=== PATIENT | female | born 1940 | race Caucasian/White ===

== ENCOUNTER 2016-08-11 20:56 | Emergency (ER) | payer OTHER ==
[~2016-08-11] VITALS: Ht 149.9 cm; Wt 60.5 kg
[~2016-08-11 20:56] MED LIST: AMLO-114 PO; LOSA100T2 PO; METO1TAB69 PO; OMEG10002 PO; PRLSR20 PO
[2016-08-11 20:58] VITALS: Ht 149.9 cm; Wt 60.5 kg
[2016-08-11] MEDS ORDERED: SODIUM CHLORIDE 0.9% 1000ML 1,000 ML IV STA (21:09)
[2016-08-11] MEDS ORDERED: CEFTRIAXONE SOD INJ 1 GM ADDVIAL IV STA (21:09)
[2016-08-11 21:10] VITALS: O2SAT 98
[2016-08-11 21:53] LABS: URINE APPEARANCE CLEAR (CLEAR); URINE COLOR DK YELLOW; URINE EPITHELIAL CELL AUTO >30 /lpf (0-5); URINE NITRITE NEG (NEG); URINE PH 5.5 (4.5-7.5); URINE SPECIFIC GRAVITY 1.024 (1.000-1.030); UROBILINOGEN NEG (NEG); ZZUR CULT IF INDIC CLEAN CATCH YES
[2016-08-11 21:56] LABS: MANUAL MICROSCOPIC REQUIRED? NO; REVIEW REQ? NO
[2016-08-11 21:57] LABS: URINE BILIRUBIN NEG (NEG)
[2016-08-11 22:30] LABS: PARTIAL THROMBOPLASTIN RATIO 1.1; PROTHROMBIN TIME (PATIENT) 11.1 SECONDS (9.0-12.0)
[2016-08-11 22:41] LABS: ALT/SGPT 35 U/L (12-78); BLOOD UREA NITROGEN 19 mg/dl (7-18); BUN/CREATININE RATIO 20.3 (10-20); CALCIUM 9.1 mg/dl (8.5-10.1); CARBON DIOXIDE 25 mmol/L (21-32); CHLORIDE 97 mmol/L (98-107); CREATININE 0.94 mg/dl (0.60-1.20); GLUCOSE 98 mg/dl (70-99); POTASSIUM 3.2 mmol/L (3.5-5.1); SODIUM 132 mmol/L (136-145)
[2016-08-11 22:47] LABS: ALKALINE PHOSPHATASE 89 U/L (45-117); AST/SGOT 55 U/L (15-37)
[2016-08-11] MEDS ORDERED: ACETAMINOPHEN 325 MG TAB PO STA (22:57)
[2016-08-11 23:22] LABS: HEMATOCRIT 37.1 % (37-47); MEAN CORPUSCULAR HEMOGLOBIN 31.3 pg (25-34); MEAN CORPUSCULAR HGB CONC 34.8 g/dl (32-36); PLATELET COUNT 159 K/uL (130-400); RED BLOOD COUNT 4.12 M/uL (4.2-5.4); WHITE BLOOD COUNT 6.72 K/uL (4.8-10.8)
[2016-08-11 23:24] LABS: AGGLUTINATED RBC 2+
[2016-08-11 23:25] LABS: BASO % 0.9 %; BASO ABS # 0.06 K/uL (0-0.2); COMPLETE YES; EOS % 0.1 %; IG% 0.1 %; LYMPH % 9.4 %; LYMPH ABS # 0.63 K/uL (1.2-3.4); MONO % 10.7 %; NEUT % 78.8 %
[2016-08-11] MEDS ORDERED: LEVO-366 PO (23:52)
[2016-08-11] MEDS ORDERED: LEVOFLOXACIN 250 MG TAB PO STA (23:53)
--- NOTE | 2016-08-11 23:53 | EMERGENCY ROOM VISIT NOTE ---
History Report prepared by Swati: Torrie Armijo Under the Supervision of: Dr. Charles Delong D.O. First contact with patient: 21:06 Chief Complaint: WEAKNESS Stated Complaint: WEAKNESS, NO APPETITIE, FELL, BODY ACHES History of Present Illness The patient is a 76 year old female who presents to the Emergency Room with complaints of persistent weakness over the past month. She currently rates her discomfort as an 8/10 in severity. The patient states that 1 week ago she went to her PCP's office for left shoulder pain that radiates into her chest and down to her buttocks. She states that after the pain had started she had a fall down 1 step in the basement that threw her across the room into a chair. The patient's daughter reports that the patient has a history of a pervious back surgery and notes that the patient has been complaining of increased back pain since then. She states that the patient has had a decrease in appetite, noting that the patient has not eaten in three days. The patient reports a normal fluid intake. The patient's daughter states that the patient had an unwitnessed fall yesterday and the patient states that she could not get herself up after the fall. The patient states that she had to call another daughter to come help her up. She is unsure of any loss of consciousness. The patient additionally notes abdominal pain. The patient denies any cough, shortness of breath, or urinary symptoms. Source of History: patient, family (daughter) Onset: past month Position: other (global) Symptom Intensity: 8/10 Quality: other (weakness) Timing: other (persistent) Associated Symptoms: + chest pain, + abdominal pain, No cough, No SOB, No urinary symptoms Note: Associated Symptoms: decrease in appetite, unwitnessed falls, left shoulder pain Review of Systems See HPI for pertinent positives & negatives. A total of 10 systems reviewed and were otherwise negative. Past Medical & Surgical Medical Problems: (1) Arthritis (2) GERD (gastroesophageal reflux disease) (3) Hypertension Surgical Problems: (1) H/O: hysterectomy (2) History of bladder suspension procedure (3) Hx of tonsillectomy (4) Previous back surgery (5) S/P bilateral breast reduction (6) S/P hemorrhoidectomy Family History Heart disease Hypertension Social History Smoking Status: Never Smoker Smokeless Tobacco Use: No Alcohol Use: none Marital Status: Housing Status: lives alone Occupation Status: retired Current/Historical Medications Scheduled Amlodipine (Norvasc), 10 MG PO DAILY Losartan Potassium & Hydrochlo (Hyzaar), 1 TAB PO DAILY Metoprolol Succ (Toprol Xl) (Toprol-Xl ), 100 MG PO DAILY Allergies Coded Allergies: Cephalexin (Verified Allergy, Unknown, HIVES, 08/11/16) Physical Exam Vital Signs Date Time Temp Pulse Resp B/P (MAP) Pulse Ox O2 Delivery O2 Flow Rate FiO2 08/11/16 22:43 39.3 96 16 127/65 94 Room Air 08/11/16 21:19 98 08/11/16 21:10 98 Room Air 08/11/16 20:58 38.8 108 18 138/69 96 Room Air Physical Exam CONSTITUTIONAL/VITAL SIGNS: Reviewed / noted above. GENERAL: Non-toxic in appearance. INTEGUMENTARY: Warm, dry, and [place]. HEAD: Normocephalic. EYES: without scleral icterus or trauma. ENT/OROPHARYNX: clear and moist. LYMPHADENOPATHY/NECK: Is supple without lymphadenopathy or meningismus. RESPIRATORY: Lungs clear and equal. CARDIOVASCULAR: Regular rate and rhythm. GI/ABDOMEN: Soft and nontender. No organomegaly or pulsatile mass. No rebound or guarding. Normal bowel sounds. EXTREMITIES: Warm and well perfused. BACK: No CVA tenderness. NEUROLOGICAL: Intact without focal deficits. PSYCHIATRIC: normal affect. MUSCULOSKELETAL: Normally developed with good muscle tone. Medical Decision & Procedures ER Provider Diagnostic Interpretation: 1 view chest x-ray per my interpretation, pending radiology review: no acute disease, no pneumonia, no pneumothorax. Lumbar spine x-ray per my interpretation, pending radiology review: post- surgical hardware appears to be intact, no acute abnormalities appreciated. Laboratory Results 08/11/16 22:08 Red Blood Count 4.12, Mean Corpuscular Volume 90.0, Mean Corpuscular Hemoglobin 31.3, Mean Corpuscular Hemoglobin Concent 34.8, Neutrophils (%) (Auto) 78.8, Lymphocytes (%) (Auto) 9.4, Monocytes (%) (Auto) 10.7, Eosinophils (%) (Auto) 0.1, Basophils (%) (Auto) 0.9, Neutrophils # (Auto) 5.29, Lymphocytes # (Auto) 0.63, Monocytes # (Auto) 0.72, Eosinophils # (Auto) 0.01, Basophils # (Auto) 0.06 08/11/16 22:08 Test 08/11/16 21:35 08/11/16 22:08 Urine Color DK YELLOW Urine Appearance CLEAR (CLEAR) Urine pH 5.5 (4.5-7.5) Urine Specific [place] 1.024 (1.000-1.030) Urine Protein 1+ (NEG) Urine Glucose (UA) NEG (NEG) Urine Ketones 1+ (NEG) Urine Occult Blood 1+ (NEG) Urine Nitrite NEG (NEG) Urine Bilirubin NEG (NEG) Urine Urobilinogen NEG (NEG) Urine Leukocyte Esterase MODERATE (NEG) Urine WBC (Auto) 10-30 /hpf (0-5) Urine RBC (Auto) 10-30 /hpf (0-4) Urine Hyaline Casts (Auto) 1-5 /lpf (0-5) Urine Epithelial Cells (Auto) >30 /lpf (0-5) Urine Bacteria (Auto) NEG (NEG) White Blood Count 6.72 K/uL (4.8-10.8) Red Blood Count 4.12 M/uL (4.2-5.4) Hemoglobin 12.9 g/dL (12.0-16.0) Hematocrit 37.1 % (37-47) Mean Corpuscular Volume 90.0 fL (80-100) Mean Corpuscular Hemoglobin 31.3 pg (25-34) Mean Corpuscular Hemoglobin Concent 34.8 g/dl (32-36) Platelet Count 159 K/uL (130-400) Neutrophils (%) (Auto) 78.8 % Lymphocytes (%) (Auto) 9.4 % Monocytes (%) (Auto) 10.7 % Eosinophils (%) (Auto) 0.1 % Basophils (%) (Auto) 0.9 % Neutrophils # (Auto) 5.29 K/uL (1.4-6.5) Lymphocytes # (Auto) 0.63 K/uL (1.2-3.4) Monocytes # (Auto) 0.72 K/uL (0.11-0.59) Eosinophils # (Auto) 0.01 K/uL (0-0.5) Basophils # (Auto) 0.06 K/uL (0-0.2) Immature Granulocyte % (Auto) 0.1 % Immature Granulocyte # (Auto) 0.01 K/uL (0.00-0.02) RBC Agglutinates 2+ Prothrombin Time 11.1 SECONDS (9.0-12.0) Prothromb Time International Ratio 1.0 (0.9-1.1) Activated Partial Thromboplast Time 27.4 SECONDS (21.0-31.0) Partial Thromboplastin Ratio 1.1 Anion Gap 10.0 mmol/L (3-11) Est Creatinine Clear Calc Drug Dose 39.7 ml/min Estimated GFR () 67.8 Estimated GFR (Non- 58.5 BUN/Creatinine Ratio 20.3 (10-20) Lactic Acid Level 1.1 mmol/L (0.4-2.0) Calcium Level 9.1 mg/dl (8.5-10.1) Total Bilirubin 0.9 mg/dl (0.2-1) Direct Bilirubin 0.2 mg/dl (0-0.2) Aspartate Amino Transf (AST/SGOT) 55 U/L (15-37) Alanine Aminotransferase (ALT/SGPT) 35 U/L (12-78) Alkaline Phosphatase 89 U/L (45-117) Total Creatine Kinase 91 U/L (26-192) Creatine Kinase MB < 0.5 ng/ml (0.5-3.6) Creatine Kinase MB Ratio (0-3.0) Troponin I < 0.015 ng/ml (0-0.045) Total Protein 7.1 gm/dl (6.4-8.2) Albumin 3.3 gm/dl (3.4-5.0) Lipase 75 U/L (73-393) Laboratory results as stated above per my review. Medications Administered Medications (Trade) Dose Ordered Sig/Joselin Route Start Time Stop Time Status Last Admin Dose Admin Sodium Chloride 1,000 ml @ 999 mls/hr Q1H1M STAT IV 08/11/16 21:09 08/11/16 22:09 DC 08/11/16 21:44 999 MLS/HR Ceftriaxone Sodium (Rocephin Inj) 1 gm NOW STAT IV 08/11/16 21:09 08/11/16 21:19 DC 08/11/16 21:56 1 GM Acetaminophen (Tylenol Tab) 650 mg NOW STAT PO 7/5/17 22:57 08/11/16 22:58 DC 08/11/16 23:06 650 MG ECG Indication: weakness Rate (beats per minute): 103 Rhythm: sinus tachycardia Findings: no ectopy, other (no acute injury) ED Course 2118: Previous medical records were reviewed. The patient was evaluated in room B12B. A complete history and physical examination was performed. 2108: Ordered Rocephin Inj 1 gm IV, Sodium Chloride 1000 ml @ 999 mls/hr IV. 2256: Per nursing staff, the patient is still experiencing a fever. Ordered Tylenol Tab 650 mg PO. 2354: I reevaluated the patient and she is resting comfortably. I discussed the exam findings with her and her family and I discussed the treatment plan. They verbalized complete understanding and agreement. The patient is ready for discharge. Medical Decision Differentials include: Acute coronary syndrome, myocardial infarction, CVA, TIA , anemia, infection, pneumonia, UTI, pyelonephritis, poor nutrition, dehydration , electrolyte disturbance, and hypoglycemia. Medication Reconciliation: I attest that I have personally reviewed the patient' s current medication list. Blood pressure Screening: Patient was found to have normal blood pressure on screening and does not require follow-up. This is a 76-year-old female who presents to the ED with a chief complaint of generalized weakness. The patient has had a decreased appetite for the past several days and has not been eating solids well but has been drinking adequate fluids. She reportedly fell yesterday because she became weak. The daughter also stated that the patient fell about 3 weeks ago. The patient has a fever here 38.8. She denies any subjective sensation of fevers. She denies any upper respiratory symptoms or cough. Denies urinary symptoms or abdominal pain. Her physical exam was relatively unremarkable. Twelve-lead EKG shows a sinus tachycardia rate of 103. CBC is normal, complete metabolic panel was unremarkable. Troponin is negative. Lipase is negative. Chest x-ray did not show any acute disease, per my interpretation. X-rays of the lumbar spine reveals postoperative changes and hardware without any other acute abnormality related to her fall. The patient was told the results of the test. She was treated with IV fluids, by mouth Tylenol and IV Rocephin. She'll be discharged on Levaquin. First dose was given here. Impression Primary Impression: UTI (urinary tract infection) Additional Impressions: Fever Weakness Fall Scribe Attestation The scribe's documentation has been prepared under my direction and personally reviewed by me in its entirety. I confirm that the note above accurately reflects all work, treatment, procedures, and medical decision making performed by me. Departure Information Dispostion Home / Self-Care Prescriptions Levofloxacin (Levaquin) 500 Mg Tab 500 MG PO DAILY for 7 Days, #7 TAB Prov: Charles Delong D.O. 08/11/16 Referrals Juan Nails M.D. (PCP) Patient Instructions My [facility] Additional Instructions Take Levaquin as prescribed for urinary tract infection. Use Tylenol as needed for fevers. Drink plenty of fluid. Follow-up with your doctor in 2 days for recheck. Return for worsening or new concerns. Problem Qualifiers
[2016-08-12 00:09] VITALS: BP 120/49; PULSE 96; TEMP 37.5; O2SAT 96
--- NOTE | 2016-08-12 07:24 | DIAGNOSTIC IMAGING REPORT ---
CHEST 1 VW FRONT-NOT PORTABLE CLINICAL HISTORY: 76 years-old Female presenting with Fever/Sepsis. TECHNIQUE: Portable upright view of the chest was obtained. COMPARISON: 01/14/2014. FINDINGS: Cardiomediastinal silhouette normal. Slightly low lung volumes with mild hypoventilatory changes. Lungs and pleural spaces clear. Posterior fusion hardware noted at the thoracolumbar junction, partially visualized. The left humeral head may be slightly inferiorly subluxed, which is more prominent than on prior exam though this may be positional. Upper abdomen normal. IMPRESSION: 1. No convincing evidence of acute cardiopulmonary disease. Electronically signed by: Robinson Nguyen 08/12/2016 7:23 AM Dictated Date/Time: 08/12/2016 7:19 AM
--- NOTE | 2016-08-12 07:33 | DIAGNOSTIC IMAGING REPORT ---
L-SPINE MIN 4 VIEWS ROUTINE CLINICAL HISTORY: 76 years-old Female presenting with fall. TECHNIQUE: Frontal, lateral, and bilateral oblique views of the lumbar spine were obtained. COMPARISON: 02/17/2014. FINDINGS: Posterior interpedicular screw and esteban fixation spanning T12 to the sacroiliac joints noted with discectomy and interbody spacers at L4-5 and L5-S1. Interpedicular screws are present at all levels except L2. Hardware appears intact. Increased kyphotic deformity at T11-12, which is new from prior. No gross evidence of compression fracture. Osseous fusion across the surgically fused levels noted. Vertebral body heights and intervertebral disc spaces grossly maintained, although slight intervertebral disc height loss at L1-2 may be present as on prior exam. Spondylosis noted diffusely. Mild increase in osseous neural foraminal narrowing at L5-S1 and L2-3. Normal bowel gas pattern. The visualized noted in the pelvis. Degenerative changes of the hip joints also noted. IMPRESSION: 1. Osseous fusion across the posterior interpedicular screw esteban fixation spanning T12 to the sacroiliac joints. 2. Mild increase in osseous neural foraminal narrowing at L2-3 and L5-S1. 3. Increased kyphotic deformity at T11-12 without gross evidence of compression fracture. Electronically signed by: Robinson Nguyen 08/12/2016 7:31 AM Dictated Date/Time: 08/12/2016 7:24 AM
== END 2016-08-12 00:11 | disposition home or self-care (01) ==
LOC: C.EDB 20:57
DX: N39.0 Urinary tract infection, site not specified (principal); R53.1 Weakness; R50.9 Fever, unspecified; Z91.81 History of falling; R00.0 Tachycardia, unspecified; I10 Essential (primary) hypertension; K21.9 Gastro-esophageal reflux disease without esophagitis; M19.90 Unspecified osteoarthritis, unspecified site; Z90.710 Acquired absence of both cervix and uterus; Z98.890 Other specified postprocedural states; Z79.899 Other long term (current) drug therapy; Z88.8 Allergy status to other drugs, medicaments and biological substances; Z82.49 Family history of ischemic heart disease and other diseases of the circulatory system

== ENCOUNTER 2022-11-16 10:16 | Inpatient (IN) ==
--- NOTE | 2022-11-16 10:26 | Emergency Department Note ---
Impression & Plan Sepsis, Acute confusion, Leukocytosis, Elevated procalcitonin, Non-ST elevation [place] (NSTEMI) ED Provider Note HISTORY OF PRESENT ILLNESS: Patient is an 82-year-old female presenting with increasing confusion. History obtained via EMS, as on arrival to the ER the patient has no complaints. She reportedly has baseline dementia but for the last 24 hours has had a significant decline in her mental status. She reportedly had saturations of 88% yesterday at her facility and was started on supplemental oxygen which is new for her. Patient denies any chest pain, shortness of breath or any complaints on arrival to the ER. ROS: as above PHYSICAL EXAM: Constitutional: Patient appears in no acute distress. HENT: Head: Normocephalic and atraumatic. Eyes: EOMI, PERRL Mouth/Throat: Mucous membranes moist. Neck: Trachea midline. Neck supple. Cardiovascular: Tachycardic with regular rhythm. No murmurs, rubs or gallops. Intact distal pulses. Pulmonary/Chest: No respiratory distress. Breath sounds clear and equal bilaterally. No wheezes or rales. Abdominal: Abdomen soft, no tenderness, rebound or guarding. Musculoskeletal: No edema, tenderness or deformity noted. Skin: Warm and dry. No rash, erythema, pallor or cyanosis Psychiatric: Appropriate mood and affect for situation. Neurological: Alert to person. CN II-XII grossly intact, moving all extremities equally and fully. MDM: - Vitals signs showed tachycardia and hypotension. - History obtained via EMS, given patient's confusion. Patient presents with increasing confusion. EMS reports the patient has been having grossly worsening confusion in the last 24 hours. She has a history of dementia but her mental status has declined for her facility. She was reportedly hypoxic at her facility yesterday and placed on a new oxygen requirement. No reported fevers. - Chronic conditions affecting care: HTN; HLD; dementia - Differential diagnoses include, but are not limited to: Pneumonia; UTI; acute viral syndrome; ACS; electrolyte abnormality; CHF exacerbation - Order placed for continuous cardiac monitoring. At this time, monitor showed rate of 85 bpm with normal sinus rhythm, per my interpretation. - External medical records reviewed. EMS run sheet reviewed. No medications were given prehospital. - EKG reviewed by myself showed normal sinus rhythm. Rate tachycardic at 106 bpm. QTc 456. No acute ischemic changes. - Laboratory workup interpreted by myself showed leukocytosis (WBC 12.98) with left shift; hypernatremia (Na 147); elevated BUN (39); normal creatinine; elevated troponin (24.4); elevated procalcitonin (14.35) - UA showed 2+ bacteria. - CXR negative for pneumonia, per my interpretation. Noted to have pulmonary vascular congestion per radiology. - Biofire negative - Blood cultures obtained. - Patient empirically started on IV vancomycin and cefepime. - Given 1g IV acetaminophen for fever. - Patient given 1850 mL NS in ER for sepsis fluid resuscitation. Based on actual body weight, patient's sepsis fluid resuscitation is 1800 mL. - Discussion was had with social worker health services about patient's case and need for admission - Hospitalist consulted for admission - [facility] I provided 34 minutes of critical care time to this patient's care outside of billable procedures. ASSESSMENT AND PLAN: Diagnosis: Sepsis; confusion; leukocytosis; elevated procalcitonin; NSTEMI Plan: Admit Past Med/Surg History Medical History Asthma as a child Hyperlipidemia Hypertension Osteoarthritis Poor historian Spinal stenosis Surgical History History of back surgery hardware present History of bilateral breast reduction surgery History of hysterectomy History of tonsillectomy Hx of cataract surgery RIGHT Family History Other Dementia Social History Smoking Status: Never smoker Second Hand Exposure: No; Do You Dip or Chew Tobacco: No; Hx Alcohol Use: No Hx Substance Use: No Preferred Language: Kyrgyz Communication Ability: Effective Soft Tile Setter Required: No Beliefs That Will Affect Care: None Current Living Situation: Alone Feels Safe at Home: Yes Assistive Devices: Glasses and Hearing Aid - Bilateral Allergies Allergies Allergy/AdvReac Type Severity Reaction Status Date / Time cephalexin Allergy Intermediate HIVES Verified 11/16/22 12:18 lorazepam [From Ativan] Allergy Unknown Unknown Unverified 11/16/22 12:18 zolpidem [From Ambien] AdvReac Severe "Gets Unverified 11/16/22 12:18 Violent" Home Meds Home Medications Medication Instructions Recorded Confirmed amlodipine 5 mg tablet 5 mg PO QAM 10/28/17 11/16/22 atorvastatin 20 mg tablet 20 mg PO HS 10/28/17 11/16/22 metoprolol succinate 100 mg 100 mg PO QAM 10/28/17 11/16/22 tablet,extended release 24 hr escitalopram oxalate 10 mg tablet 10 mg PO DAILY 06/16/22 11/16/22 acetaminophen 325 mg tablet 975 mg PO TID PRN Pain 11/16/22 11/16/22 (Tylenol) bisacodyl 10 mg rectal suppository 10 mg VA DAILY PRN Constipation 11/16/22 11/16/22 (Dulcolax (bisacodyl)) chlorhexidine gluconate 0.12 % 15 ml buccal TID 11/16/22 11/16/22 mouthwash dexamethasone 6 mg tablet 6 mg PO DAILY 11/16/22 11/16/22 docusate sodium 100 mg tablet 100 mg PO BID constipation 11/16/22 11/16/22 guaifenesin 600 mg tablet, 600 mg PO Q12H 11/16/22 11/16/22 extended release 12 hr (Mucinex) ipratropium 0.5 mg-albuterol 3 mg 3 ml inhalation QID 11/16/22 11/16/22 (2.5 mg base)/3 mL nebulization soln magnesium hydroxide 400 mg/5 mL 1,200 mg PO DAILY constipation 11/16/22 11/16/22 oral suspension (Milk of Magnesia) melatonin 3 mg tablet 3 mg PO HS 11/16/22 11/16/22 memantine 5 mg tablet 5 mg PO DAILY 11/16/22 11/16/22 mirtazapine 15 mg tablet 7.5 mg PO HS 11/16/22 11/16/22 risperidone 0.5 mg tablet 0.5 mg PO BID 11/16/22 11/16/22 sennosides 8.6 mg tablet (senna) 17.2 mg PO BID 11/16/22 11/16/22 sodium phosphates 19 gram-7 118 ml VA DAILY PRN Constipation 11/16/22 11/16/22 gram/118 mL enema (Fleet Enema) solifenacin 5 mg tablet 5 mg PO DAILY 11/16/22 11/16/22 Results & Data (ED) Vital Signs Vital Signs - 24 hr 11/16/22 10:52 11/16/22 10:30 11/16/22 11:00 Temperature 38.2 C H Temperature Source Oral Pulse Rate 108 H 111 H Pulse Rate [Apical] 98 H Pulse Rhythm [Apical] Regular Respiratory Rate 18 16 Respiratory Effort / Characteristics Non-Labored Non-Labored Respiratory Depth Normal Normal Blood Pressure 110/67 Blood Pressure [Right Arm] 100/74 Blood Pressure Mean 81 Blood Pressure Mean [Right Arm] 82 Pulse Oximetry 89 L 96 Oxygen Delivery Method Room Air Nasal Cannula Oxygen Flow Rate 2 Sepsis Recent Fever Within 48 Hours Yes Sepsis New/Unexplained Change in Mental Status Yes Sepsis Action Taken by Nursing Physician Notified 11/16/22 10:35 11/16/22 10:33 11/16/22 11:15 Temperature Temperature Source Pulse Rate Pulse Rate [Apical] 94 H Pulse Rhythm [Apical] Respiratory Rate 18 Respiratory Effort / Characteristics Respiratory Depth Blood Pressure Blood Pressure [Right Arm] 98/57 L Blood Pressure Mean Blood Pressure Mean [Right Arm] 70 Pulse Oximetry 96 96 97 Oxygen Delivery Method Nasal Cannula Nasal Cannula Oxygen Flow Rate 2 2 Sepsis Recent Fever Within 48 Hours Sepsis New/Unexplained Change in Mental Status Sepsis Action Taken by Nursing 11/16/22 12:00 11/16/22 12:23 11/16/22 13:00 Temperature Temperature Source Pulse Rate Pulse Rate [Apical] 81 81 83 Pulse Rhythm [Apical] Respiratory Rate 18 18 18 Respiratory Effort / Characteristics Non-Labored Respiratory Depth Normal Blood Pressure Blood Pressure [Right Arm] 82/47 L 82/47 L 94/55 L Blood Pressure Mean Blood Pressure Mean [Right Arm] 58 58 68 Pulse Oximetry 96 96 Oxygen Delivery Method Nasal Cannula Oxygen Flow Rate 2 Sepsis Recent Fever Within 48 Hours Sepsis New/Unexplained Change in Mental Status Sepsis Action Taken by Nursing Laboratory Data 11/16/22 10:30 11/16/22 10:30 Lab Results 11/16/22 11/16/22 11/16/22 Range/Units 10:28 10:30 10:30 WBC 12.98 H (4.8-10.8) K/ul RBC 3.04 L (4.20-5.40) M/uL Hgb 11.2 L (12.0-16.0) g/dl Hct 30.6 L (37.0-47.0) % MCV 100.7 H (80.0-100.0) fL MCH 36.8 H (25.0-34.0) pg MCHC 36.6 H (32.0-36.0) g/dL RDW Std Deviation 53.3 H (36.4-46.3) fL RDW Coeff of David 16.2 H (11.5-14.5) % Plt Count 242 (130-400) K/uL MPV 10.6 (9.4-12.4) fL Immature Gran % (Auto) 0.6 % Neut % (Auto) 86.8 % Lymph % (Auto) 2.6 % [place] % (Auto) 9.8 % Eos % (Auto) 0.0 % Baso % (Auto) 0.2 % Neut # (Auto) 11.26 H (1.40-6.50) K/uL Lymph # (Auto) 0.34 L (1.20-3.40) K/uL [place] # (Auto) 1.27 H (0.11-0.59) K/uL Eos # (Auto) 0.00 (0.00-0.50) K/uL Baso # (Auto) 0.03 (0.00-0.20) K/uL Immature Gran # (Auto) 0.08 (0.01-0.20) K/uL RBC Agglutinates 2+ VBG pH (7.36-7.41) VBG pCO2 (38-50) mmHg VBG pO2 mmHg VBG HCO3 mmol/L VBG O2 Saturation % VBG Base Excess mEq/L Sodium 147 H (136-145) mmol/L Potassium 3.6 (3.5-5.1) mmol/L Chloride 113 H (98-107) mmol/L Carbon Dioxide 26 (21-32) mmol/L Anion Gap 8 (3-11) BUN 39 H (6-23) mg/dl Creatinine 0.96 (0.6-1.2) mg/dl Est Cr Clr Drug Dosing Not Reportable Est GFR ( Amer) 63.4 ml/min Est GFR (Non-Af Amer) 54.7 ml/min BUN/Creatinine Ratio 40.6 H (10-20) Glucose 141 H (70-99(Fasting)) mg/dl Lactate (0.4-2.0) mmol/L Calcium 9.8 (8.6-10.3) mg/dl Magnesium 1.7 (1.7-2.4) mg/dl Total Bilirubin 1.4 H (0.2-1.0) mg/dl Direct Bilirubin 0.4 H (0-0.2) mg/dl AST 16 (13-39) U/L ALT 10 (7-52) U/L Alkaline Phosphatase 102 (34-104) U/L Troponin I High Sens 24.4 H (0-14) pg/ml Total Protein 6.8 (6.0-8.3) gm/dl Albumin 3.7 (3.4-5.0) gm/dl Procalcitonin (0-0.5) ng/ml Urine Color Urine Appearance (Clear) Urine pH Ur Specific [place] Urine Protein Urine Glucose (UA) Urine Ketones Urine Blood Urine Nitrite Urine Bilirubin Urine Urobilinogen Ur Leukocyte Esterase Urine RBC (0-4) /hpf Urine WBC (0-5) /hpf Ur Epithelial Cells (0-5) /lpf Urine Bacteria (Negative) Hyaline Casts (0-5) /lpf Adenovirus (PCR) Not Detected (NotDetected) B. pertussis DNA (PCR) Not Detected (NotDetected) B.parapertussis DNA PCR Not Detected (NotDetected) C. pneumoniae DNA (PCR) Not Detected (NotDetected) Coronavirus OC43 (PCR) Not Detected (NotDetected) Coronavirus HKU1 (PCR) Not Detected (NotDetected) Coronavirus 229E (PCR) Not Detected (NotDetected) SARS-CoV-2 (PCR) Not Detected (NotDetected) Coronavirus NL63 (PCR) Not Detected (NotDetected) Human Metapneumovir PCR Not Detected (NotDetected) Influenza Type A (PCR) Not Detected (NotDetected) Influenza Type B (PCR) Not Detected (NotDetected) M. pneumoniae (PCR) Not Detected (NotDetected) Parainfluenza 1 (PCR) Not Detected (NotDetected) Parainfluenza 2 (PCR) Not Detected (NotDetected) Parainfluenza 3 (PCR) Not Detected (NotDetected) Parainfluenza 4 (PCR) Not Detected (NotDetected) RSV (PCR) Not Detected (NotDetected) Entero/Rhino (PCR) Not Detected (NotDetected) 11/16/22 11/16/22 11/16/22 Range/Units 10:30 10:30 10:44 WBC (4.8-10.8) K/ul RBC (4.20-5.40) M/uL Hgb (12.0-16.0) g/dl Hct (37.0-47.0) % MCV (80.0-100.0) fL MCH (25.0-34.0) pg MCHC (32.0-36.0) g/dL RDW Std Deviation (36.4-46.3) fL RDW Coeff of David (11.5-14.5) % Plt Count (130-400) K/uL MPV (9.4-12.4) fL Immature Gran % (Auto) % Neut % (Auto) % Lymph % (Auto) % [place] % (Auto) % Eos % (Auto) % Baso % (Auto) % Neut # (Auto) (1.40-6.50) K/uL Lymph # (Auto) (1.20-3.40) K/uL [place] # (Auto) (0.11-0.59) K/uL Eos # (Auto) (0.00-0.50) K/uL Baso # (Auto) (0.00-0.20) K/uL Immature Gran # (Auto) (0.01-0.20) K/uL RBC Agglutinates VBG pH 7.44 H (7.36-7.41) VBG pCO2 39 (38-50) mmHg VBG pO2 51 mmHg VBG HCO3 27 mmol/L VBG O2 Saturation 86.7 % VBG Base Excess 2.3 mEq/L Sodium (136-145) mmol/L Potassium (3.5-5.1) mmol/L Chloride (98-107) mmol/L Carbon Dioxide (21-32) mmol/L Anion Gap (3-11) BUN (6-23) mg/dl Creatinine (0.6-1.2) mg/dl Est Cr Clr Drug Dosing Est GFR ( Amer) ml/min Est GFR (Non-Af Amer) ml/min BUN/Creatinine Ratio (10-20) Glucose (70-99(Fasting)) mg/dl Lactate 1.5 (0.4-2.0) mmol/L Calcium (8.6-10.3) mg/dl Magnesium (1.7-2.4) mg/dl Total Bilirubin (0.2-1.0) mg/dl Direct Bilirubin (0-0.2) mg/dl AST (13-39) U/L ALT (7-52) U/L Alkaline Phosphatase (34-104) U/L Troponin I High Sens (0-14) pg/ml Total Protein (6.0-8.3) gm/dl Albumin (3.4-5.0) gm/dl Procalcitonin 14.35 H (0-0.5) ng/ml Urine Color Urine Appearance (Clear) Urine pH Ur Specific [place] Urine Protein Urine Glucose (UA) Urine Ketones Urine Blood Urine Nitrite Urine Bilirubin Urine Urobilinogen Ur Leukocyte Esterase Urine RBC (0-4) /hpf Urine WBC (0-5) /hpf Ur Epithelial Cells (0-5) /lpf Urine Bacteria (Negative) Hyaline Casts (0-5) /lpf Adenovirus (PCR) (NotDetected) B. pertussis DNA (PCR) (NotDetected) B.parapertussis DNA PCR (NotDetected) C. pneumoniae DNA (PCR) (NotDetected) Coronavirus OC43 (PCR) (NotDetected) Coronavirus HKU1 (PCR) (NotDetected) Coronavirus 229E (PCR) (NotDetected) SARS-CoV-2 (PCR) (NotDetected) Coronavirus NL63 (PCR) (NotDetected) Human Metapneumovir PCR (NotDetected) Influenza Type A (PCR) (NotDetected) Influenza Type B (PCR) (NotDetected) M. pneumoniae (PCR) (NotDetected) Parainfluenza 1 (PCR) (NotDetected) Parainfluenza 2 (PCR) (NotDetected) Parainfluenza 3 (PCR) (NotDetected) Parainfluenza 4 (PCR) (NotDetected) RSV (PCR) (NotDetected) Entero/Rhino (PCR) (NotDetected) 11/16/22 Range/Units 10:47 WBC (4.8-10.8) K/ul RBC (4.20-5.40) M/uL Hgb (12.0-16.0) g/dl Hct (37.0-47.0) % MCV (80.0-100.0) fL MCH (25.0-34.0) pg MCHC (32.0-36.0) g/dL RDW Std Deviation (36.4-46.3) fL RDW Coeff of David (11.5-14.5) % Plt Count (130-400) K/uL MPV (9.4-12.4) fL Immature Gran % (Auto) % Neut % (Auto) % Lymph % (Auto) % [place] % (Auto) % Eos % (Auto) % Baso % (Auto) % Neut # (Auto) (1.40-6.50) K/uL Lymph # (Auto) (1.20-3.40) K/uL [place] # (Auto) (0.11-0.59) K/uL Eos # (Auto) (0.00-0.50) K/uL Baso # (Auto) (0.00-0.20) K/uL Immature Gran # (Auto) (0.01-0.20) K/uL RBC Agglutinates VBG pH (7.36-7.41) VBG pCO2 (38-50) mmHg VBG pO2 mmHg VBG HCO3 mmol/L VBG O2 Saturation % VBG Base Excess mEq/L Sodium (136-145) mmol/L Potassium (3.5-5.1) mmol/L Chloride (98-107) mmol/L Carbon Dioxide (21-32) mmol/L Anion Gap (3-11) BUN (6-23) mg/dl Creatinine (0.6-1.2) mg/dl Est Cr Clr Drug Dosing Est GFR ( Amer) ml/min Est GFR (Non-Af Amer) ml/min BUN/Creatinine Ratio (10-20) Glucose (70-99(Fasting)) mg/dl Lactate (0.4-2.0) mmol/L Calcium (8.6-10.3) mg/dl Magnesium (1.7-2.4) mg/dl Total Bilirubin (0.2-1.0) mg/dl Direct Bilirubin (0-0.2) mg/dl AST (13-39) U/L ALT (7-52) U/L Alkaline Phosphatase (34-104) U/L Troponin I High Sens (0-14) pg/ml Total Protein (6.0-8.3) gm/dl Albumin (3.4-5.0) gm/dl Procalcitonin (0-0.5) ng/ml Urine Color Yellow Urine Appearance Turbid A (Clear) Urine pH Not Reportable Ur Specific [place] Not Reportable Urine Protein Not Reportable Urine Glucose (UA) Not Reportable Urine Ketones Not Reportable Urine Blood Not Reportable Urine Nitrite Not Reportable Urine Bilirubin Not Reportable Urine Urobilinogen Not Reportable Ur Leukocyte Esterase Not Reportable Urine RBC 0-4 (0-4) /hpf Urine WBC >30 H (0-5) /hpf Ur Epithelial Cells 5-10 H (0-5) /lpf Urine Bacteria 2+ H (Negative) Hyaline Casts 0-5 (0-5) /lpf Adenovirus (PCR) (NotDetected) B. pertussis DNA (PCR) (NotDetected) B.parapertussis DNA PCR (NotDetected) C. pneumoniae DNA (PCR) (NotDetected) Coronavirus OC43 (PCR) (NotDetected) Coronavirus HKU1 (PCR) (NotDetected) Coronavirus 229E (PCR) (NotDetected) SARS-CoV-2 (PCR) (NotDetected) Coronavirus NL63 (PCR) (NotDetected) Human Metapneumovir PCR (NotDetected) Influenza Type A (PCR) (NotDetected) Influenza Type B (PCR) (NotDetected) M. pneumoniae (PCR) (NotDetected) Parainfluenza 1 (PCR) (NotDetected) Parainfluenza 2 (PCR) (NotDetected) Parainfluenza 3 (PCR) (NotDetected) Parainfluenza 4 (PCR) (NotDetected) RSV (PCR) (NotDetected) Entero/Rhino (PCR) (NotDetected) Administered Medications Vancomycin HCl 1,250 mg/ (Sodium Chloride) 525 mls @ 200 mls/hr IV NOW ONE Stop: 11/16/22 14:14 Last Admin: 11/16/22 11:49 Dose: 200 mls/hr Documented By: ALEXANDER Sodium Chloride (Nss) 1,000 mls @ 850 mls/hr IV .Q1H11M ONE Stop: 11/16/22 13:17 Last Admin: 11/16/22 12:25 Dose: 850 mls/hr Documented By: ALEXANDER Discontinued Medications Sodium Chloride (Nss) 1,000 mls @ 999 mls/hr IV .Q1H1M MEG Stop: 11/16/22 11:30 Last Infusion: 11/16/22 11:55 Dose: 0 mls/hr Documented By: Admin: 11/16/22 10:43 Dose: 999 mls/hr Documented By: BOBO Acetaminophen (Ofirmev) 1,000 mg in 100 mls @ 400 mls/hr IV NOW STA Stop: 11/16/22 11:10 Last Infusion: 11/16/22 11:55 Dose: 0 mls/hr Documented By: Admin: 11/16/22 11:22 Dose: 400 mls/hr Documented By: ALEXANDER Sodium Chloride (Nss) 1,000 mls @ 999 mls/hr IV .Q1H1M ONE Stop: 11/16/22 12:37 Last Admin: 11/16/22 11:49 Dose: 999 mls/hr Documented By: ALEXANDER Cefepime HCl (Maxipime) 2,000 mg in 20 mls @ 5 mls/min IV NOW STA; Protocol Stop: 11/16/22 11:40 Last Admin: 11/16/22 11:48 Dose: 5 mls/min Documented By: ALEXANDER Imaging Data Radiologist's Impression: Chest X-Ray 11/16/22 10:23 XR chest 1V portable HISTORY: 82 years-old Female Sepsis acute sepsis COMPARISON: 06/16/2022 TECHNIQUE: AP view of the chest FINDINGS: Cardiac silhouette is enlarged. Pulmonary vascular congestion with interstitial coarsening. No pneumothorax, large pleural effusion or lobar airspace consolidation. The bones appear grossly intact. Lumbar spinal fusion hardware. IMPRESSION: Cardiomegaly with pulmonary vascular congestion. ACT 112: Negative or not required by law. The above report was generated using voice recognition software. It may contain grammatical, syntax or spelling errors. Electronically signed by: Ricardo Mccall M.D. 11/16/2022 11:23 AM Discharge Plan Visit Data Chief Complaint: Weakness ED Provider: Sharmila Chu Discharge Problem: Sepsis, Acute confusion, Leukocytosis, Elevated procalcitonin, Non-ST elevation [place] (NSTEMI) Forms Stand Alone Forms: [facility] Prescriptions Prescriptions: No Action atorvastatin 20 mg Tablet 20 mg PO HS metoprolol succinate 100 mg Tablet Extended Release 24 Hr 100 mg PO QAM amlodipine 5 mg Tablet 5 mg PO QAM sennosides [senna] 8.6 mg Tablet 17.2 mg PO BID acetaminophen [Tylenol] 325 mg Tablet 975 mg PO TID PRN (Reason: Pain) ipratropium-albuterol 0.5 mg-3 mg(2.5 mg base)/3 mL solution for nebulization 3 ml INHALATION QID Rx Instructions: Start Date 11/16/22 - End Date 11/26/22 dexamethasone 6 mg Tablet 6 mg PO DAILY Rx Instructions: Start Date 11/16/22 - End Date 11/26/22 melatonin 3 mg Tablet 3 mg PO HS bisacodyl [Dulcolax (bisacodyl)] 10 mg Suppository 10 mg [place] DAILY PRN (Reason: Constipation) Rx Instructions: Administer on the evening of the 3rd day of no bowel movement mirtazapine 15 mg Tablet 7.5 mg PO HS docusate sodium 100 mg Tablet 100 mg PO BID risperidone 0.5 mg tablet 0.5 mg PO BID memantine 5 mg tablet 5 mg PO DAILY solifenacin 5 mg tablet 5 mg PO DAILY chlorhexidine gluconate 0.12 % Mouthwash 15 ml BUCCAL TID Rx Instructions: Swish and Spit guaifenesin [Mucinex] 600 mg Tablet Extended Release 12hr 600 mg PO Q12H Rx Instructions: Start Date 11/16/22 - End Date 11/26/22 magnesium hydroxide [Milk of Magnesia] 400 mg/5 mL Suspension 1,200 mg PO DAILY Rx Instructions: Give on the morning of the 3rd day of no bowel movement Fleet Enema 19-7 gram/118 mL Enema 118 ml [place] DAILY PRN (Reason: Constipation) Rx Instructions: Administer on 4th day without a bowel movement if no result from enema, notify escitalopram oxalate 10 mg Tablet 10 mg PO DAILY Referrals Referrals: Juan Nails MD [Family Provider] -
[2022-11-16] MEDS ORDERED: SODIUM CHLORIDE 0.9% 1,000 ML IV SCH (10:30)
[2022-11-16 10:50] LABS: Base Excess VBG 2.3 mEq/L; HCO3 VBG 27 mmol/L; Oxygen Saturation VBG 86.7 %; PCO2 VBG 39 mmHg (38-50); PO2 VBG 51 mmHg; pH VBG 7.44 (7.36-7.41)
[2022-11-16] MEDS ORDERED: ACETAMINOPHEN 1,000 MG/100 ML VIAL IV STA (10:56)
[2022-11-16 11:19] LABS: Alanine Aminotransferase 10 U/L (7-52); Albumin Level 3.7 gm/dl (3.4-5.0); Alkaline Phosphatase 102 U/L (34-104); Anion Gap 8 (3-11); Aspartate Aminotransferase 16 U/L (13-39); BUN Creatinine Ratio 40.6 (10-20); Bilirubin Direct 0.4 mg/dl (0-0.2); Bilirubin,Total 1.4 mg/dl (0.2-1.0); Blood Urea Nitrogen 39 mg/dl (6-23); Calcium 9.8 mg/dl (8.6-10.3); Carbon Dioxide 26 mmol/L (21-32); Chloride 113 mmol/L (98-107); Est GFR (African American) 63.4 ml/min; Est GFR (Non-African American) 54.7 ml/min; Glucose 141 mg/dl (70-99(Fasting)); Magnesium 1.7 mg/dl (1.7-2.4); Potassium 3.6 mmol/L (3.5-5.1); Sodium 147 mmol/L (136-145); Total Protein 6.8 gm/dl (6.0-8.3)
[2022-11-16 11:24] LABS: Troponin I High Sensitivity 24.4 pg/ml (0-14)
--- NOTE | 2022-11-16 11:25 | XRay Report ---
XR chest 1V portable HISTORY: 82 years-old Female Sepsis acute sepsis COMPARISON: 06/16/2022 TECHNIQUE: AP view of the chest FINDINGS: Cardiac silhouette is enlarged. Pulmonary vascular congestion with interstitial coarsening. No pneumo thorax, large pleural effusion or lobar airspace consolidation. The bones appear grossly intact. Lumb ar spinal fusion hardware. IMPRESSION: Cardiomegaly with pulmonary vascular congestion. ACT 112: Negative or not required by law. The above report was generated using voice recognition software. It may contain grammatical, syntax o r spelling errors. Electronically signed by: Ricardo Mccall M.D. 11/16/2022 11:23 AM
[2022-11-16 11:30] LABS: Hematocrit (blood only) 30.6 % (37.0-47.0); Hemoglobin 11.2 g/dl (12.0-16.0); Mean Corpuscular Hemoglobin 36.8 pg (25.0-34.0); Mean Corpuscular Hgb Conc 36.6 g/dL (32.0-36.0); Mean Corpuscular Volume 100.7 fL (80.0-100.0); Mean Platelet Volume 10.6 fL (9.4-12.4); Platelet Count 242 K/uL (130-400); RDW Coefficient of Variation 16.2 % (11.5-14.5); RDW Standard Deviation 53.3 fL (36.4-46.3); Red Blood Count 3.04 M/uL (4.20-5.40); White Blood Count 12.98 K/ul (4.8-10.8)
[2022-11-16 11:31] LABS: Agglutinated RBC 2+; Basophils # (auto) 0.03 K/uL (0.00-0.20); Basophils % (auto) 0.2 %; Immature Granulocytes # (auto) 0.08 K/uL (0.01-0.20); Immature Granulocytes % (auto) 0.6 %; Lymphocytes # (auto) 0.34 K/uL (1.20-3.40); Lymphocytes % (auto) 2.6 %; Monocytes # (auto) 1.27 K/uL (0.11-0.59); Monocytes % (auto) 9.8 %; Neutrophils # (auto) 11.26 K/uL (1.40-6.50); Neutrophils % (auto) 86.8 %
[2022-11-16 11:33] LABS: Adenovirus PCR Not Detected (NotDetected); Bordetella parapertussis PCR Not Detected (NotDetected); Bordetella pertussis PCR Not Detected (NotDetected); Chlamydia pneumoniae PCR Not Detected (NotDetected); Coronavirus 229E PCR Not Detected (NotDetected); Coronavirus CoV-2 (COVID19)PCR Not Detected (NotDetected); Coronavirus HKU1 PCR Not Detected (NotDetected); Coronavirus NL63 PCR Not Detected (NotDetected); Coronavirus OC43PCR Not Detected (NotDetected); Human Metapneumovirus PCR Not Detected (NotDetected); Influenza A PCR Not Detected (NotDetected); Influenza B PCR Not Detected (NotDetected); Mycoplasma pneumoniae PCR Not Detected (NotDetected); Parainfluenza Virus 1 PCR Not Detected (NotDetected); Parainfluenza Virus 2 PCR Not Detected (NotDetected); Parainfluenza Virus 3 PCR Not Detected (NotDetected); Parainfluenza Virus 4 PCR Not Detected (NotDetected); Respiratory Syncytial VirusPCR Not Detected (NotDetected); Rhinovirus/Enterovirus PCR Not Detected (NotDetected)
[2022-11-16] MEDS ORDERED: CEFEPIME 2,000 MG/20 ML VIAL IV STA (11:37)
[2022-11-16] MEDS ORDERED: SODIUM CHLORIDE 0.9% 1,000 ML IV ONE ×2 (11:37→12:07)
[2022-11-16] MEDS ORDERED: VANCOMYCIN HCL 1,250 MG in SODIUM CHLORIDE 0.9% 500 ML IV ONE (11:37)
[2022-11-16] MEDS ORDERED: VANCOMYCIN CONSULT ACTIVE PRN (11:37)
[2022-11-16 11:52] LABS: Appearance Urine Turbid (Clear); Color Urine Yellow
[2022-11-16 11:56] LABS: Bacteria Urine 2+ (Negative); Hyaline Casts Urine 0-5 /lpf (0-5); RBC Urine 0-4 /hpf (0-4); WBC Urine >30 /hpf (0-5)
--- NOTE | 2022-11-16 13:26 | History & Physical Report ---
Date of Service November 16, 2022 Assessment & Plan (1) Sepsis: (2) Abnormal finding on urinalysis: Plan: This is an 82yo F with a PMH of dementia, HTN, history of SAH, hyperlipidemia, IBS and other medical problems listed below who presents from [facility] wit h generalized weakness and lethargy and is found to have sepsis 2/2 UTI. Sepsis 2/2 UTI T: 38, HR 111, WBC 12.98, procal 14, lactate wnl BP initially hypotensive but improved to 107/67, receiving 2nd L of fluid Urinary incontinence at baseline, daughter reports patient generally found in a soiled brief when she arrives for visits, increased diarrhea this week Urine initially mucoid in nature and lab requesting repeat. Rehydrating and will re-send UA, urine culture Stool cultures, c diff pending Resp biofire negative CXR with cardiomegaly with pulmonary vascular congestion, BNP pending Abdomen soft on exam Continue broad spectrum coverage with cefepime, vanco for now Follow blood, urine culture (3) Metabolic encephalopathy: Plan: 2/2 sepsis above, more lethargic than usual. Baseline dementia, A&O to person only. Expect improvement with fluids, antibiotics. If not improved by AM, consider adding CT head (4) Hypertension: Plan: BP low normal range now. Continue amlodipine, Toprol with hold parameters in AM (5) Hyperlipidemia: Plan: Chronic; stable. Continue statin DVT Ppx: SCDs for now, h/o SAH Code status: FULL PCP: Jaqui Dispo: Admitted to PCU Patient seen in collaboration with Dr. Gaona. Please see addendum. History of Present Illness Chief Complaint: AMS, generalized weakness Primary Care Provider: [facility] This is an 82yo F with a PMH of dementia, HTN, history of SAH, hyperlipidemia, IBS and other medical problems listed below who presents from [facility] with generalized weakness and lethargy. Daughter at bedside provides majority of history due to patient's baseline dementia. Daughter visited her on Tuesday and there had been concern for UTI but test hadn't resulted yet. Patient did eat dinner normally that night and seemed otherwise in normal state of health. Daughter was called this morning due to increased lethargy and was brought to ED for further evaluation. Daughter concerned about level of care provided as patient is always in a soiled brief when she visits. Endorses urinary incontinence at baseline but now also having increased diarrhea. Can ambulate independently at baseline. Denies any headache, cough, sore throat, CP, SOB, N/V, abdominal pain, dysuria or constipation. Per facility paperwork, patient was ordered a steroid pack, mucinex and duonebs this morning but they have not yet been started. Patient does not report any respiratory symptoms. Allergies Allergy/AdvReac Type Severity Reaction Status Date / Time cephalexin Allergy Intermediate HIVES Verified 11/16/22 12:18 lorazepam [From Ativan] Allergy Unknown Unknown Unverified 11/16/22 12:18 zolpidem [From Ambien] AdvReac Severe "Gets Unverified 11/16/22 12:18 Violent" Home Medications Medication Instructions Recorded Confirmed Type amlodipine 5 mg tablet 5 mg PO QAM 10/28/17 11/16/22 History atorvastatin 20 mg tablet 20 mg PO HS 10/28/17 11/16/22 History metoprolol succinate 100 mg 100 mg PO QAM 10/28/17 11/16/22 History tablet,extended release 24 hr escitalopram oxalate 10 mg tablet 10 mg PO DAILY 06/16/22 11/16/22 History acetaminophen 325 mg tablet 975 mg PO TID PRN Pain 11/16/22 11/16/22 History (Tylenol) bisacodyl 10 mg rectal suppository 10 mg DE DAILY PRN Constipation 11/16/22 11/16/22 History (Dulcolax (bisacodyl)) chlorhexidine gluconate 0.12 % 15 ml buccal TID 11/16/22 11/16/22 History mouthwash docusate sodium 100 mg tablet 100 mg PO BID constipation 11/16/22 11/16/22 His tory magnesium hydroxide 400 mg/5 mL 1,200 mg PO DAILY constipation 11/16/22 11/16/22 History oral suspension (Milk of Magnesia) melatonin 3 mg tablet 3 mg PO HS 11/16/22 11/16/22 History memantine 5 mg tablet 5 mg PO DAILY 11/16/22 11/16/22 History mirtazapine 15 mg tablet 7.5 mg PO HS 11/16/22 11/16/22 History risperidone 0.5 mg tablet 0.5 mg PO BID 11/16/22 11/16/22 History sennosides 8.6 mg tablet (senna) 17.2 mg PO BID 11/16/22 11/16/22 History sodium phosphates 19 gram-7 118 ml DE DAILY PRN Constipation 11/16/22 11/16/22 History gram/118 mL enema (Fleet Enema) solifenacin 5 mg tablet 5 mg PO DAILY 11/16/22 11/16/22 History Past Med/Surg History Medical History (Updated 11/16/22 @ 14:19 by Apryl Ruiz PA-C) Asthma as a child Hyperlipidemia Hypertension Osteoarthritis Poor historian Spinal stenosis Surgical History History of back surgery hardware present History of bilateral breast reduction surgery History of hysterectomy History of tonsillectomy Hx of cataract surgery RIGHT Family History Other Dementia Social History Smoking Status: Never smoker Second Hand Exposure: No; Do You Dip or Chew Tobacco: No; Hx Alcohol Use: No Hx Substance Use: No Preferred Language: Central African Communication Ability: Effective Manager Retail Sales Required: No Beliefs That Will Affect Care: None Current Living Situation: Alone Feels Safe at Home: Yes Assistive Devices: Glasses and Hearing Aid - Bilateral Review of Systems Review of Systems: At least ten systems reviewed and negative except as noted in the HPI. Physical Exam Physical Exam: Please see Dr. Gaona's addendum for physical exam. Results & Data Results & Data Vital Signs (Past 12 Hours) Vital Signs Temp Pulse Pulse Resp BP BP Pulse Ox 11/16/22 13:21 83 18 100/52 L 96 11/16/22 13:00 83 18 94/55 L 11/16/22 12:23 81 18 82/47 L 96 11/16/22 12:00 81 18 82/47 L 96 11/16/22 11:15 94 H 18 98/57 L 97 11/16/22 10:33 96 11/16/22 10:35 96 11/16/22 11:00 98 H 16 100/74 96 11/16/22 10:30 38.2 C H 111 H 18 110/67 89 L 11/16/22 10:52 108 H O2 Del Method O2 Flow Rate 11/16/22 13:21 Nasal Cannula 2 11/16/22 13:00 11/16/22 12:23 Nasal Cannula 2 11/16/22 12:00 11/16/22 11:15 11/16/22 10:33 Nasal Cannula 2 11/16/22 10:35 Nasal Cannula 2 11/16/22 11:00 Nasal Cannula 2 11/16/22 10:30 Room Air 11/16/22 10:52 Laboratory Results Short CBC 11/16/22 Range/Units 10:30 WBC 12.98 H (4.8-10.8) K/ul Hgb 11.2 L (12.0-16.0) g/dl Hct 30.6 L (37.0-47.0) % Plt Count 242 (130-400) K/uL BMP 11/16/22 10:30 Sodium 147 H Potassium 3.6 Chloride 113 H Carbon Dioxide 26 BUN 39 H Creatinine 0.96 Glucose 141 H Calcium 9.8 Liver Function 11/16/22 Range/Units 10:30 Total Bilirubin 1.4 H (0.2-1.0) mg/dl Direct Bilirubin 0.4 H (0-0.2) mg/dl AST 16 (13-39) U/L ALT 10 (7-52) U/L Alkaline Phosphatase 102 (34-104) U/L Albumin 3.7 (3.4-5.0) gm/dl Urine 11/16/22 Range/Units 10:47 Urine Color Yellow Urine Appearance Turbid A (Clear) Urine pH Not Reportable Ur Specific Coral Not Reportable Urine Protein Not Reportable Urine Glucose (UA) Not Reportable Diagnostic Findings Chest X-Ray 11/16/22 10:23 XR chest 1V portable HISTORY: 82 years-old Female Sepsis acute sepsis COMPARISON: 06/16/2022 TECHNIQUE: AP view of the chest FINDINGS: Cardiac silhouette is enlarged. Pulmonary vascular congestion with interstitial coarsening. No pneumothorax, large pleural effusion or lobar airspace consolidat ion. The bones appear grossly intact. Lumbar spinal fusion hardware. IMPRESSION: Cardiomegaly with pulmonary vascular congestion. ACT 112: Negative or not required by law. The above report was generated using voice recognition software. It may contain grammatical, syntax or spelling errors. Electronically signed by: Ricardo Mccall M.D. 11/16/2022 11:23 AM Code Status & VTE Plan VTE Prophylaxis Plan VTE Prophylaxis will be ordered: Yes Supervising Physician Co-Signing Physician Notes Attending addendum; The patient was seen and examined in emergency room in presence of the daughter 82-year-old with known dementia was sent in from [facility] with progressive weakness and lethargy with possible change in mental status She has been feeling a little better during my examination and denies any significant symptoms except weakness and tiredness On arrival she was noted to have hypoxia and also blood pressure was low with has been improving with IV fluids Physical examination revealed hypogastric tenderness of note On examination Lying in bed comfortably Looks weak and lethargic Noted to have high temperature of 38.2 but blood pressure was stable at 104 7/67 Chest-clear to auscultate bilaterally Heart-S1, S2 regular Abdomen-soft, not distended, mildly tender in the hypogastrium with normal bowel sound Extremities-negative for any edema 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 Normal conversation. Generally weak but no focal neurodeficit Her admission labs, EKG and imaging studies reviewed Sepsis likely secondary to UTI-presented with hypotension, increased temperature of 38.2 and borderline increase in white count Urine is showing possible infection and will send it for culture Stool will be sent for C. difficile toxin Received intravenous fluid and will give cautious amount of fluid Started on intravenous cefepime and continue for now Agree with assessment and plan as outlined above by RICH Ellis Dr
[2022-11-16] MEDS ORDERED: POLYETHYLENE (MIRALAX) 17 GM PACK PO PRN (15:42)
[2022-11-16] MEDS ORDERED: bisacodyL 10 MG SUPP PR PRN (15:42)
[2022-11-16] MEDS ORDERED: ONDANSETRON INJ 2 MG/ML 2 ML VIAL IV PRN (15:42)
[2022-11-16] MEDS ORDERED: SOD PHOSPHATE/SOD BIPHOSPHATE ENEMA 132 ML BTL PR PRN (15:42)
--- NOTE | 2022-11-16 15:55 | Electrocardiogram Report ---
Test Reason : Blood Pressure : / mmHG Vent. Rate : 106 BPM Atrial Rate : 106 BPM P-R Int : 208 ms QRS Dur : 084 ms QT Int : 344 ms P-R-T Axes : 052 -10 046 degrees QTc Int : 456 ms Sinus tachycardia Otherwise normal ECG When compared with ECG of 28-AUG-2022 10:17, Nonspecific T wave abnormality no longer evident in Anterior leads Confirmed by Guy Gurrola ([id number]) on 11/16/2022 3:54:49 PM Referred By: Confirmed By:Guy Gurrola
[2022-11-16] MEDS ORDERED: Patient's HEIGHT &/or WEIGHT Needed SCH (16:15)
[2022-11-16] MEDS ORDERED: risperiDONE 0.5 MG TABLET PO STA (16:51)
[2022-11-16] MEDS: Patient's HEIGHT &/or WEIGHT Needed SCH ×4 (17:10→20:46)
[2022-11-16] MEDS ORDERED: SODIUM CHLORIDE 0.9% 500 ML IV ONE (18:25)
[2022-11-16] MEDS: SENNA 8.6 MG TAB PO SCH (20:43)
[2022-11-16] MEDS: DOCUSATE SODIUM 100 MG CAP PO SCH (20:43)
[2022-11-16] MEDS: MIRTAZAPINE TAB 15 MG TAB PO SCH (20:44)
[2022-11-16] MEDS: risperiDONE 0.5 MG TABLET PO SCH (20:44)
[2022-11-16] MEDS: CHLORHEXIDINE GLUCONATE 0.12% 480 ML MT SCH (20:45)
[2022-11-16] MEDS: ATORVASTATIN 20 MG TAB PO SCH (20:45)
--- NOTE | 2022-11-16 20:58 | Pharmacy Report ---
Pharmacy PK ABX Note - Date of Service November 16, 2022 - Assessment and Plan Assessment 82 year old F receiving vancomycin/cefepime for treatment of UTI. Pertinent microbiologic data includes: blood culture currently pending. Day # 1 of antimicrobial therapy. Plan Vancomycin * Loading dose: 1250 mg IV x 1 * Maintenance dose: 1000 mg IV every 24 hours * Regimen is predicted to achieve target AUC/FOUZIA of 400-600 mg/L.hr * Random level ordered for: 11/17/22 Pharmacy will continue to follow and will adjust dose/frequency as necessary. Thank you. Pharmacy has transitioned to AUC monitoring for vancomycin. AUC/FOUZIA is the preferred PK/PD target and is associated with decreased risk of nephrotoxicity compared to traditional trough targets.
[2022-11-16] MEDS: CEFEPIME 2,000 MG in SYRINGE 0 ML IV SCH (21:57)
[2022-11-16] MEDS: MAGNESIUM SULFATE / D5W 1 GM/100 ML BAG IV SCH ×2 (21:57→23:54)
[2022-11-16 22:04] LABS: A calco-baum cmplx NotReported Not Detected (NotDetected); Bact fragilis Not Reported Not Detected (NotDetected); C auris Not Reported Not Detected (NotDetected); CTX-M Resistant Gene Not Detected (NotDetected); Calbicans Not Reported Not Detected (NotDetected); Candida glabrata Not Reported Not Detected (NotDetected); Candida krusei Not Reported Not Detected (NotDetected); Cneoformans/gatti Not Reported Not Detected (NotDetected); Cparapsilosis Not Reported Not Detected (NotDetected); E cloacae compx Not Reported Not Detected (NotDetected); Efaecalis Not Reported Not Detected (NotDetected); Efaecium Not Reported Not Detected (NotDetected); Enterobacterales DETECTED (NotDetected); Enterobacterales Not Reported DETECTED (NotDetected); Escherichia coli Not Reported DETECTED (NotDetected); H influenzae Not Reported Not Detected (NotDetected); IMP Resistant Gene Not Detected (NotDetected); K aerogenes Not Reported Not Detected (NotDetected); KPC Resistant Gene Not Detected (NotDetected); Koxytoca Not Reported Not Detected (NotDetected); Kpneumoniae grp Not Reported Not Detected (NotDetected); Lmonocyt Not Reported Not Detected (NotDetected); N meningitidis Not Reported Not Detected (NotDetected); NDM Resistant Gene Not Detected (NotDetected); OXA 48 Like Resistant Gene Not Detected (NotDetected); P aeruginosa Not Reported Not Detected (NotDetected); Proteus spp Not Reported Not Detected (NotDetected); Salmonella spp Not Reported Not Detected (NotDetected); Smarcescens Not Reported Not Detected (NotDetected); Staph lugdunensis Not Reported Not Detected (NotDetected); Staph spp. Not Reported Not Detected (NotDetected); Staphaureus Not Reported Not Detected (NotDetected); Staphepi Not Reported Not Detected (NotDetected); Stenmaltophilia Not Reported Not Detected (NotDetected); Strep agal(GrpB) Not Reported Not Detected (NotDetected); Strep pneum Not Reported Not Detected (NotDetected); Strep pyog (GrpA) Not Reported Not Detected (NotDetected); Strep spp Not Reported Not Detected (NotDetected); VIM Resistant Gene Not Detected (NotDetected); mcr-1 Colistin Resistant Gene Not Detected (NotDetected)
[2022-11-17 00:37] LABS: Adenovirus F 40/41 PCR Not Detected (NotDetected); Astrovirus PCR Not Detected (NotDetected); Campylobacter PCR Not Detected (NotDetected); Cryptosporidium PCR Not Detected (NotDetected); Cyclospora cayetanensis PCR Not Detected (NotDetected); Entamoeba histolytica PCR Not Detected (NotDetected); Enteroaggregative E.coli(EAEC) Not Detected (NotDetected); Enteropathogenic E.coli (EPEC) Not Detected (NotDetected); Enterotoxigenic E.coli (ETEC) Not Detected (NotDetected); Giardia lamblia PCR Not Detected (NotDetected); Norovirus GI/GII PCR Not Detected (NotDetected); Plesiomonas shigelloides PCR Not Detected (NotDetected); Rotavirus A PCR Not Detected (NotDetected); Salmonella PCR Not Detected (NotDetected); Sapovirus PCR Not Detected (NotDetected); Shiga-like Toxin E.coli (STEC) Not Detected (NotDetected); Shigella/Enteroinvasive E.coli Not Detected (NotDetected); Vibrio cholerae PCR Not Detected (NotDetected); Vibrio species PCR Not Detected (NotDetected); Yersinia enterocolitica PCR Not Detected (NotDetected)
[2022-11-17 07:27] LABS: BUN Creatinine Ratio 41.7 (10-20); Calcium 8.8 mg/dl (8.6-10.3); Creatinine Clr Calc Pharmacy 59.2 ml/min; Est GFR (African American) 97.7 ml/min; Est GFR (Non-African American) 84.3 ml/min; Potassium 3.9 mmol/L (3.5-5.1)
[2022-11-17 07:32] LABS: Hematocrit (blood only) 28.4 % (37.0-47.0); Hemoglobin 10.3 g/dl (12.0-16.0); Mean Corpuscular Hemoglobin 36.5 pg (25.0-34.0); Mean Corpuscular Hgb Conc 36.3 g/dL (32.0-36.0); Mean Corpuscular Volume 100.7 fL (80.0-100.0); Mean Platelet Volume 10.8 fL (9.4-12.4); Platelet Count 195 K/uL (130-400); RDW Coefficient of Variation 16.5 % (11.5-14.5); RDW Standard Deviation 54.2 fL (36.4-46.3); Red Blood Count 2.82 M/uL (4.20-5.40); White Blood Count 16.63 K/ul (4.8-10.8)
[2022-11-17] MEDS: OXYBUTYNIN CHLORIDE XL 5 MG TABCR PO SCH (08:40)
[2022-11-17] MEDS: ESCITALOPRAM OXALATE 10 MG TAB PO SCH (08:40)
[2022-11-17] MEDS: risperiDONE 0.5 MG TABLET PO SCH ×2 (08:40→19:37)
[2022-11-17] MEDS: SENNA 8.6 MG TAB PO SCH ×2 (08:41→19:37)
[2022-11-17] MEDS: METOPROLOL SUCC 50MG EXT REL TAB PO SCH (08:41)
[2022-11-17] MEDS: MAGNESIUM HYDROXIDE SUSP 30 ML UDC PO SCH (08:41)
[2022-11-17] MEDS: CHLORHEXIDINE GLUCONATE 0.12% 480 ML MT SCH ×3 (08:41→19:37)
[2022-11-17] MEDS: DOCUSATE SODIUM 100 MG CAP PO SCH ×2 (08:41→19:37)
[2022-11-17] MEDS: MEMANTINE HCL 5 MG TAB PO SCH (08:41)
[2022-11-17] MEDS ORDERED: VANCOMYCIN HCL 1,000 MG in SODIUM CHLORIDE 0.9% 250 ML IV SCH (09:00)
[2022-11-17] MEDS: amLODIPine BESYLATE 5 MG TAB PO SCH (09:36)
[2022-11-17] MEDS: CEFEPIME 2,000 MG in SYRINGE 0 ML IV SCH ×2 (12:10→22:30)
--- NOTE | 2022-11-17 15:46 | Hospitalist Progress Note ---
Date of Service November 17, 2022 Assessment & Plan (1) Sepsis: (2) Abnormal finding on urinalysis: Plan: Patient is a 82 yr female with H/O Dementia, HTN, history of SAH, hyperlipidemia, IBS and other medical problems listed below who presents from [facility] with generalized weakness and lethargy and is found to have sepsis 2/2 UTI. Sepsis Gram-negative bacteremia Likely due to urinary tract infection Diarrhea H/O urinary incontinence --CXR:Cardiomegaly with pulmonary vascular congestion. --Blood cultures 4/4 growing gram-negative bacilli --Urine culture pending --BioFire negative Normal lactate levels Stool PCR negative Continue IV cefepime Received IV fluids Monitor volume status (3) Metabolic encephalopathy: Plan: Secondary to sepsis in setting of dementia Reorient frequently Will consider CT head if no improvement (4) Hypertension: Plan: Continue amlodipine, Toprol with hold parameters (5) Hyperlipidemia: Plan: Continue statin Dementia Mood disorder Continue home medications DVT Px: SCDs for now, H/O SAH Code status: FULL CODE Admission and Anticipated Discharge Date Admission Date: November 16, 2022 Subjective Patient is seen and examined at bedside Poor historian due to dementia Denies any chest pain, dyspnea Review of Systems Review of Systems: All systems reviewed & are unremarkable except as noted in Subjective Physical Exam Physical Exam: Physical Exam: Vitals signs as noted above General Appearance:Moderately built and nourished, no apparent distress Head: normocephalic, Atraumatic Eyes: normal inspection, EOMI Neck: supple, Trachea midline Respiratory/Chest: Decreased breath sounds, CTA, No accessory muscle use Cardiovascular: S1, S2, No murmur Abdomen/GI:Soft, Non tender, Bowel sounds present Extremities/Musculoskeletal:normal inspection, no edema Neurologic/Psych:AA, grossly no focal neurological deficits Skin: normal color, warm Results & Data Results & Data Vital Signs (Past 12 Hours) Vital Signs Temp Pulse Resp BP Pulse Ox O2 Del Method 11/17/22 12:15 36.7 C 89 20 147/80 H 90 Room Air 11/17/22 07:56 37.1 C 97 H 19 124/57 L 93 Room Air Laboratory Results Short CBC 11/17/22 Range/Units 06:15 WBC 16.63 H (4.8-10.8) K/ul Hgb 10.3 L (12.0-16.0) g/dl Hct 28.4 L (37.0-47.0) % Plt Count 195 (130-400) K/uL BMP 11/17/22 06:15 Sodium 142 Potassium 3.9 Chloride 114 H Carbon Dioxide 24 BUN 25 H Creatinine 0.60 D Glucose 102 H Calcium 8.8
[2022-11-17] MEDS ORDERED: MELATONIN 3 MG TAB PO PRN (17:24)
[2022-11-17] MEDS: MIRTAZAPINE TAB 15 MG TAB PO SCH (19:36)
[2022-11-17] MEDS: ATORVASTATIN 20 MG TAB PO SCH (19:37)
[2022-11-17] MEDS ORDERED: VANCOMYCIN HCL 1,500 MG in SODIUM CHLORIDE 0.9% 500 ML IV SCH (21:00)
[2022-11-18 07:47] LABS: BUN Creatinine Ratio 33.3 (10-20); Calcium 9.4 mg/dl (8.6-10.3); Creatinine Clr Calc Pharmacy 53.2 ml/min; Est GFR (African American) 94.7 ml/min; Est GFR (Non-African American) 81.7 ml/min; Potassium 3.7 mmol/L (3.5-5.1)
[2022-11-18] MEDS: ESCITALOPRAM OXALATE 10 MG TAB PO SCH (08:04)
[2022-11-18] MEDS: MEMANTINE HCL 5 MG TAB PO SCH (08:04)
[2022-11-18] MEDS: SENNA 8.6 MG TAB PO SCH ×2 (08:04→21:45)
[2022-11-18] MEDS: DOCUSATE SODIUM 100 MG CAP PO SCH ×2 (08:04→21:45)
[2022-11-18] MEDS: OXYBUTYNIN CHLORIDE XL 5 MG TABCR PO SCH (08:04)
[2022-11-18] MEDS: METOPROLOL SUCC 50MG EXT REL TAB PO SCH (08:04)
[2022-11-18] MEDS: risperiDONE 0.5 MG TABLET PO SCH ×2 (08:04→21:45)
[2022-11-18] MEDS: CHLORHEXIDINE GLUCONATE 0.12% 480 ML MT SCH ×3 (08:05→21:46)
[2022-11-18] MEDS: MAGNESIUM HYDROXIDE SUSP 30 ML UDC PO SCH (08:05)
[2022-11-18] MEDS: amLODIPine BESYLATE 5 MG TAB PO SCH (08:05)
[2022-11-18] MEDS ORDERED: POTASSIUM CHLORIDE CRTAB 20 MEQ TABCR PO STA (08:39)
--- NOTE | 2022-11-18 08:46 | Cardiology Consultation ---
Date of Consultation November 18, 2022 Assessment & Plan (1) Sepsis: (2) Atrial fibrillation with RVR: Plan IMPRESSION: 82 year old female with new onset atrial fibrillation with RVR in the setting of acute urosepsis. Rates borderline controlled in AFIB, likely driven by acute illness/sepsis. [id number] score of 4 (age 1, female, HTN), however elevated bleed risk given frequent falls with most recent resulting in SAH, 08/2022. HS troponin elevated but flat-- likely due to acute illness/sepsis and demand with elevated HR with AFIB. PLAN: PAF: Currently maintaining NSR, self converted this am. Continue home dose metoprolol succinate 100 mg daily Elevated CHADSVASC, however, patient is a high fall/bleed risk-- risk of bleeding seems to outweigh risk of stroke from AFIB. Would defer AC at this time. Case discussed with Dr. Charles-- will follow. Supervising Physician Co-Signing Physician Notes Patient seen and examined, chart, medications, telemetry personally reviewed. Very lethargic at the time of examination does not vocalize acute complaints. Assessment and plan as outlined above. 82-year-old female with findings consistent with acute febrile illness and sepsis. Transient atrial fibrillation during initial hospitalization with spontaneous conversion to sinus rhythm this morning. Treatment as planned above. High risk anticoagulation candidate at least at this time Would treat underlying infectious process. Keep potassium greater than 4. Continue beta-sujit as ordered, metoprolol succinate 100 mg every morning History of Present Illness Reason for Consultation: PAF Requesting Physician: Elizabeth hernandezist Attending Physician: Jerry Salas MD History of Present Illness 82-year-old female who initially presented to [facility] due to generalized weakness and lethargy found to have urosepsis secondary to UTI. On 11/17 patient went into new onset atrial fibrillation with RVR with rates in the 120s. Patient sustaining atrial fibrillation overnight. Heart rates in the 100s. Echocardiogram 11/17: LVEF normal at 55 to 60% without wall motion abnormalities. Moderate concentric LVH. RV normal in size and function. Mild aortic sclerosis without stenosis. Labs: Renal function stable. Potassium 3.7>> supplemented with 40 mEq of KCl this morning. High-sensitivity troponin mildly elevated but flat (24.4>>19.6>>30.4) Tele: SR with PACs, AFIB over night ~2044 with conversion to NSR 0845 this am >>Currently maintained on home dose of metoprolol succinate 100 mg daily Patient asleep in bed, reluctantly woke up for the exam. No acute concerns. Confusion noted-- ROS limited. Past medical history: Hypertension Dyslipidemia GERD Dementia History of subarachnoid hemorrhage secondary to mechanical fall 08/2022 treated at [facility]. Allergies Allergy/AdvReac Type Severity Reaction Status Date / Time cephalexin Allergy Intermediate HIVES Verified 11/16/22 12:18 lorazepam [From Ativan] Allergy Unknown Unknown Unverified 11/16/22 12:18 zolpidem [From Ambien] AdvReac Severe "Gets Unverified 11/16/22 12:18 Violent" Home Medications Medication Instructions Recorded Confirmed Type amlodipine 5 mg tablet 5 mg PO QAM 10/28/17 11/16/22 History atorvastatin 20 mg tablet 20 mg PO HS 10/28/17 11/16/22 History metoprolol succinate 100 mg 100 mg PO QAM 10/28/17 11/16/22 History tablet,extended release 24 hr escitalopram oxalate 10 mg tablet 10 mg PO DAILY 06/16/22 11/16/22 History acetaminophen 325 mg tablet 975 mg PO TID PRN Pain 11/16/22 11/16/22 History (Tylenol) bisacodyl 10 mg rectal suppository 10 mg AL DAILY PRN Constipation 11/16/22 11/16/22 History (Dulcolax (bisacodyl)) chlorhexidine gluconate 0.12 % 15 ml buccal TID 11/16/22 11/16/22 History mouthwash docusate sodium 100 mg tablet 100 mg PO BID constipation 11/16/22 11/16/22 History magnesium hydroxide 400 mg/5 mL 1,200 mg PO DAILY constipation 11/16/22 11/16/22 History oral suspension (Milk of Magnesia) melatonin 3 mg tablet 3 mg PO HS 11/16/22 11/16/22 History memantine 5 mg tablet 5 mg PO DAILY 11/16/22 11/16/22 History mirtazapine 15 mg tablet 7.5 mg PO HS 11/16/22 11/16/22 History risperidone 0.5 mg tablet 0.5 mg PO BID 11/16/22 11/16/22 History sennosides 8.6 mg tablet (senna) 17.2 mg PO BID 11/16/22 11/16/22 History sodium phosphates 19 gram-7 118 ml AL DAILY PRN Constipation 11/16/22 11/16/22 History gram/118 mL enema (Fleet Enema) solifenacin 5 mg tablet 5 mg PO DAILY 11/16/22 11/16/22 History Patient History Medical History (Updated 11/18/22 @ 08:41 by JODI Burr) Asthma as a child Hyperlipidemia Hypertension Osteoarthritis Poor historian Spinal stenosis Surgical History History of back surgery hardware present History of bilateral breast reduction surgery History of hysterectomy History of tonsillectomy Hx of cataract surgery RIGHT Family History Other Dementia Social History Smoking Status: Never smoker Second Hand Exposure: Yes; Do You Dip or Chew Tobacco: No; Hx Alcohol Use: No Hx Substance Use: No Preferred Language: Azerbaijani Communication Ability: Impaired Wildlife Veterinarian Required: No Beliefs That Will Affect Care: None Current Living Situation: Skilled Nursing Current Living Situation Comment: [facility] Other Information That Helps Us Care for You: No Feels Safe at Home: Yes Safety Concerns: Feels Safe At This Time Assistive Devices: None Review of Systems Review of Systems: Unobtainable due to cognitive status (Patient confused at baseline) Physical Exam Constitutional: WD/WN, vitals as above no acute distress Neck: normal visual inspection and trachea midline Cardiovascular: RRR, no murmur, no edema Heart Sounds: normal S1 and normal S2 Vessels: no JVD Gastrointestinal (Abdomen): normal bowel sounds, soft, nontender, no hepatosplenomegaly Skin: no rashes, warm and dry Results & Data Vital Signs (Past 12 Hours) Vital Signs Temp Pulse Pulse Resp BP Pulse Ox O2 Del Method 11/18/22 07:55 36.8 C 95 H 18 132/64 95 Room Air 11/18/22 03:00 36.9 C 86 21 128/70 93 Room Air 11/17/22 23:00 37.4 C 114 H 19 127/78 90 Room Air 11/17/22 22:57 103 H 11/17/22 20:45 112 H Laboratory Results Cardiac Enzymes 11/18/22 Range/Units 06:57 Troponin I High Sens 30.4 H D (0-14) pg/ml CBC 11/18/22 Range/Units 06:57 WBC 17.25 H (4.8-10.8) K/ul RBC 3.40 L (4.20-5.40) M/uL Hgb 11.5 L (12.0-16.0) g/dl Hct 32.5 L (37.0-47.0) % Plt Count 300 D (130-400) K/uL Comprehensive Metabolic Panel 11/18/22 Range/Units 06:57 Sodium 141 (136-145) mmol/L Potassium 3.7 (3.5-5.1) mmol/L Chloride 111 H (98-107) mmol/L Carbon Dioxide 24 (21-32) mmol/L BUN 22 (6-23) mg/dl Creatinine 0.66 (0.6-1.2) mg/dl Glucose 115 H (70-99(Fasting)) mg/dl Calcium 9.4 (8.6-10.3) mg/dl Intake and Output 11/17/22 11/18/22 11/18/22 22:59 06:59 14:59 Output Total 1150 / 1501 350 / 1501 Balance -1150 / -1231 -350 / -1231 Output: Urine Amount (Catheter) 1150 / 1500 350 / 1500 [place]/Indwelling 1150 / 1500 350 / 1500 Other: Weight 65.7 kg
[2022-11-18 08:51] LABS: Hematocrit (blood only) 32.5 % (37.0-47.0); Hemoglobin 11.5 g/dl (12.0-16.0); Mean Corpuscular Hemoglobin 33.8 pg (25.0-34.0); Mean Corpuscular Hgb Conc 35.4 g/dL (32.0-36.0); Mean Corpuscular Volume 95.6 fL (80.0-100.0); Mean Platelet Volume 12.1 fL (9.4-12.4); Platelet Count 300 K/uL (130-400); RDW Coefficient of Variation 14.6 % (11.5-14.5); RDW Standard Deviation 48.8 fL (36.4-46.3); White Blood Count 17.25 K/ul (4.8-10.8)
[2022-11-18] MEDS: CEFEPIME 2,000 MG in SYRINGE 0 ML IV SCH (11:42)
--- NOTE | 2022-11-18 12:33 | Electrocardiogram Report ---
Test Reason : Blood Pressure : / mmHG Vent. Rate : 120 BPM Atrial Rate : 108 BPM P-R Int : 000 ms QRS Dur : 080 ms QT Int : 308 ms P-R-T Axes : 000 -07 115 degrees QTc Int : 435 ms Atrial fibrillation with rapid ventricular response with premature ventricular or aberrantly conducte d complexes Abnormal ECG When compared with ECG of 16-NOV-2022 10:31, Atrial fibrillation has replaced Sinus rhythm Nonspecific T wave abnormality now evident in Inferior leads Confirmed by Guy Gurrola ([id number]) on 11/18/2022 12:33:14 PM Referred By: REFERRED SELF Confirmed By:Guy Gurrola
--- NOTE | 2022-11-18 12:45 | Electrocardiogram Report ---
Test Reason : Blood Pressure : / mmHG Vent. Rate : 105 BPM Atrial Rate : 113 BPM P-R Int : 000 ms QRS Dur : 080 ms QT Int : 356 ms P-R-T Axes : 000 -01 035 degrees QTc Int : 470 ms Atrial fibrillation with rapid ventricular response Nonspecific ST and T wave abnormality Abnormal ECG When compared with ECG of 17-NOV-2022 22:35, (unconfirmed) T wave inversion now evident in Anterior leads Confirmed by Guy Gurrola ([id number]) on 11/18/2022 12:44:29 PM Referred By: REFERRED SELF Confirmed By:Guy Gurrola
--- NOTE | 2022-11-18 15:54 | Hospitalist Progress Note ---
Date of Service November 18, 2022 Assessment & Plan (1) Sepsis: (2) Abnormal finding on urinalysis: Plan: Patient is a 82 yr female with H/O Dementia, HTN, history of SAH, hyperlipidemia, IBS and other medical problems listed below who presents from [facility] with generalized weakness and lethargy and is found to have sepsis 2/2 UTI. Sepsis E. coli bacteremia Likely due to urinary tract infection Diarrhea H/O urinary incontinence --CXR:Cardiomegaly with pulmonary vascular congestion. --Blood cultures 4/4 growing E. coli -- Initial urine culture: 3 types of organisms, high counts --Repeat urine culture: Pending --BioFire negative Normal lactate levels Stool PCR negative Continue IV cefepime>> transition to Rocephin Received IV fluids Monitor volume status Given repeat urine culture negative prelaminarly, will obtain CT abdomen/Pelvis to rule out any other source of infection Atrial fibrillation with RVR Spontaneously converted to sinus Continue metoprolol Cardiology on board Given high risk for anticoagulation, currently no plan to be initiated on anticoagulation (3) Metabolic encephalopathy: Plan: Secondary to sepsis in setting of dementia Reorient frequently Will consider CT head if needed (4) Hypertension: Plan: Continue amlodipine, Toprol (5) Hyperlipidemia: Plan: Continue statin Dementia Mood disorder Continue home medications DVT Px: SCDs for now, H/O SAH Code status: FULL CODE Admission and Anticipated Discharge Date Admission Date: November 16, 2022 Subjective Patient is seen and examined at bedside Poor historian due to dementia Patient went into A-fib RVR overnight, converted to sinus this morning Poor appetite per RN Blood cultures growing E. coli Denies any chest pain, dyspnea Review of Systems Review of Systems: All systems reviewed & are unremarkable except as noted in Subjective Physical Exam Physical Exam: Physical Exam: Vitals signs as noted above General Appearance:Moderately built and nourished, no apparent distress Head: normocephalic, Atraumatic Eyes: normal inspection, EOMI Neck: supple, Trachea midline Respiratory/Chest: Decreased breath sounds, CTA, No accessory muscle use Cardiovascular: S1, S2, No murmur Abdomen/GI:Soft, Non tender, Bowel sounds present Extremities/Musculoskeletal:normal inspection, no edema Neurologic/Psych:AA, grossly no focal neurological deficits Skin: normal color, warm Results & Data Results & Data Vital Signs (Past 12 Hours) Vital Signs Temp Pulse Resp BP Pulse Ox O2 Del Method 11/18/22 14:55 36.8 C 87 20 157/82 H 95 Room Air 11/18/22 10:57 37.0 C 80 18 124/73 94 Room Air 11/18/22 07:55 36.8 C 95 H 18 132/64 95 Room Air Laboratory Results Short CBC 11/18/22 Range/Units 06:57 WBC 17.25 H (4.8-10.8) K/ul Hgb 11.5 L (12.0-16.0) g/dl Hct 32.5 L (37.0-47.0) % Plt Count 300 D (130-400) K/uL BMP 11/18/22 06:57 Sodium 141 Potassium 3.7 Chloride 111 H Carbon Dioxide 24 BUN 22 Creatinine 0.66 Glucose 115 H Calcium 9.4
--- NOTE | 2022-11-18 16:39 | CT Scan Report ---
ABDOMEN AND PELVIS CT WITHOUT CONTRAST CT DOSE: 1445.83 mGy.cm HISTORY: Acute sepsis E coli Bacteremia TECHNIQUE: Multiaxial CT images of the abdomen and pelvis were performed without contrast. A dose lo wering technique was utilized adhering to the principles of ALARA. COMPARISON STUDY: Lumbar spine radiographs 08/11/2016 FINDINGS: Cardiomegaly. Mild intralobular septal thickening with dependent bibasilar consolidation an d small to moderate pleural effusions. No free air. Unenhanced spleen, moderately atrophic pancreas and adrenal glands are unremarkable. There is questio thierry mild gallbladder wall thickening with pericholecystic fluid. Unremarkable liver. Nonspecific bila teral perinephric stranding. Decompressed urinary bladder with Alice[place] catheter in place. Periarticular stranding. Hysterectomy. Atherosclerosis of the aorta without aneurysm. No lymphadenopathy. No bowel obstruction or bowel wall thickening. Trace ascites. Colonic diverticulosis. Mild to moderat e colonic fecal retention. The appendix is not definitively seen. Mild generalized body wall edema. T horacolumbar spinal fusion hardware with iliac bones. No evidence of hardware complication. IMPRESSION: 1. Limited exam without the use of IV contrast. 2. Probable mild pulmonary edema with [id number] pleural effusions and dependent bibasilar con solidation. 3. Trace ascites with body wall edema. 4. No bowel obstruction or bowel wall thickening. 5. Nonspecific perinephric and perirenal stranding. Correlate with urinalysis. 6. Colonic diverticulosis. ACT 112: Negative or not required by law. The above report was generated using voice recognition software. It may contain grammatical, syntax o r spelling errors. Electronically signed by: Ricardo Mccall M.D. 11/18/2022 4:38 PM
[2022-11-18] MEDS: MIRTAZAPINE TAB 15 MG TAB PO SCH (21:44)
[2022-11-18] MEDS: ATORVASTATIN 20 MG TAB PO SCH (21:44)
[2022-11-18] MEDS: cefTRIAXone SODIUM 2,000 MG in DEXTROSE 5 % MINI-B 50 ML IV SCH (21:46)
[2022-11-19 07:07] LABS: BUN Creatinine Ratio 38.7 (10-20); Calcium 9.3 mg/dl (8.6-10.3); Creatinine Clr Calc Pharmacy 56.6 ml/min; Est GFR (African American) 96.6 ml/min; Est GFR (Non-African American) 83.4 ml/min; Magnesium 1.9 mg/dl (1.7-2.4); Potassium 4.1 mmol/L (3.5-5.1)
[2022-11-19 07:18] LABS: Mean Corpuscular Hemoglobin 30.8 pg (25.0-34.0); Mean Corpuscular Hgb Conc 33.3 g/dL (32.0-36.0); Mean Corpuscular Volume 92.3 fL (80.0-100.0); Mean Platelet Volume 10.5 fL (9.4-12.4); Platelet Count 265 K/uL (130-400); RDW Coefficient of Variation 14.2 % (11.5-14.5); RDW Standard Deviation 47.2 fL (36.4-46.3); Red Blood Count 3.25 M/uL (4.20-5.40); White Blood Count 13.05 K/ul (4.8-10.8)
[2022-11-19] MEDS: amLODIPine BESYLATE 5 MG TAB PO SCH (07:57)
[2022-11-19] MEDS: CHLORHEXIDINE GLUCONATE 0.12% 480 ML MT SCH ×3 (07:58→22:00)
[2022-11-19] MEDS: ESCITALOPRAM OXALATE 10 MG TAB PO SCH (08:00)
[2022-11-19] MEDS: MAGNESIUM HYDROXIDE SUSP 30 ML UDC PO SCH (08:00)
[2022-11-19] MEDS: MEMANTINE HCL 5 MG TAB PO SCH (08:00)
[2022-11-19] MEDS: METOPROLOL SUCC 50MG EXT REL TAB PO SCH (08:01)
[2022-11-19] MEDS: OXYBUTYNIN CHLORIDE XL 5 MG TABCR PO SCH (08:01)
[2022-11-19] MEDS: risperiDONE 0.5 MG TABLET PO SCH ×2 (08:02→21:57)
[2022-11-19] MEDS: SENNA 8.6 MG TAB PO SCH ×2 (08:03→21:58)
[2022-11-19] MEDS: DOCUSATE SODIUM 100 MG CAP PO SCH ×2 (08:30→22:00)
--- NOTE | 2022-11-19 10:13 | Cardiology Progress Note ---
Date of Service November 19, 2022 Assessment & Plan (1) Sepsis: (2) Transient atrial fibrillation: (3) History of subarachnoid hemorrhage: (4) Dyslipidemia, goal LDL below 100: Plan 82-year-old female resident of [facility] admitted with weakness and lethargy secondary to sepsis from a urinary tract infection, E. coli bacteremia. Transient atrial fibrillation observed initially status post spontaneous conversion Continue metoprolol succinate as prescribed Risks of anticoagulation greater than the benefit; dementia, falls, mechanical fall in August 2022 with result subarachnoid hemorrhage Consider addition of BOB/ARB for hypertension Continue statin Contact with any cardiology questions or concerns Admission and Anticipated Discharge Date Admission Date: November 16, 2022 Supervising Physician Co-Signing Physician Notes Patient seen and examined, telemetry reviewed. More alert this morning still limited historian Plan recommendations as outlined above No arrhythmias on telemetry Subjective Patient seen and examined. Chart, medications, and telemetry reviewed. Feels some better today as compared to yesterday. No chest pain. No palpitations. No shortness of breath. lockstitch cup setter reviewed over the past 24 hours, revealing sinus with heart rates predominantly in the 80s Resting echocardiography on November 17, 2022 revealed normal size left ventricle with moderate concentric LVH, normal LV wall motion, EF 55 to 60%. Mild aortic valve sclerosis was noted without significant aortic valve stenosis. RV size and function normal. Physical Exam Physical Exam: General: Alert to person and place. NAD. HENT: Normocephalic. Atraumatic. Eyes: PER. Conjunctiva pink, sclera clear. Neck: No JVD. Heart: RRR, 80 bpm. No murmur. Lungs: Clear to auscultation. Abdomen: +BS. Soft. Nontender. No masses or organomegaly. Extremities: Tender to palpation, painful with movement. No significant edema. Limited neurological examination is without focal deficits. Pulses: radial=2/4, posterior tibial=1/4. Results & Data Vital Signs (Past 12 Hours) Vital Signs Temp Pulse Resp BP BP Pulse Ox O2 Del Method 11/19/22 07:52 37.7 C H 84 19 156/74 H 94 Room Air 11/19/22 07:50 80 18 156/80 H 93 Room Air 11/19/22 03:00 36.5 C 84 16 151/82 H 96 Room Air 11/18/22 23:00 36.9 C 82 14 149/77 H 95 Room Air Laboratory Results CBC 11/19/22 Range/Units 06:22 WBC 13.05 H (4.8-10.8) K/ul RBC 3.25 L (4.20-5.40) M/uL Hgb 10.0 L (12.0-16.0) g/dl Hct 30.0 L (37.0-47.0) % Plt Count 265 (130-400) K/uL Comprehensive Metabolic Panel 11/19/22 Range/Units 06:22 Sodium 141 (136-145) mmol/L Potassium 4.1 (3.5-5.1) mmol/L Chloride 110 H (98-107) mmol/L Carbon Dioxide 25 (21-32) mmol/L BUN 24 H (6-23) mg/dl Creatinine 0.62 (0.6-1.2) mg/dl Glucose 134 H (70-99(Fasting)) mg/dl Calcium 9.3 (8.6-10.3) mg/dl Intake and Output 11/18/22 11/19/22 11/19/22 22:59 06:59 14:59 Intake Total 50 / 50 Output Total 600 / 1100 500 / 1100 Balance -550 / -1050 -500 / -1050 Intake: IV 50 / 50 cefTRIAXone SODIUM 2,000 mg In 50 / 50 Dextrose 5 % Mini-B 50 ml @ 100 mls/hr IV Q24H [facility] Rx#: [id number] Output: Urine Amount (Catheter) 600 / 1100 500 / 1100 [place]/Indwelling 600 / 1100 500 / 1100 Other: Weight 65.6 kg Weight Measurement Method Built in [facility]
--- NOTE | 2022-11-19 14:48 | Electrocardiogram Report ---
Test Reason : Blood Pressure : / mmHG Vent. Rate : 088 BPM Atrial Rate : 088 BPM P-R Int : 176 ms QRS Dur : 086 ms QT Int : 374 ms P-R-T Axes : 039 -06 040 degrees QTc Int : 452 ms Sinus rhythm with Premature atrial complexes Otherwise normal ECG When compared with ECG of 18-NOV-2022 08:29, Sinus rhythm has replaced Atrial fibrillation Confirmed by Guy Gurrola ([id number]) on 11/19/2022 2:47:45 PM Referred By: REFERRED SELF Confirmed By:Guy Gurrola
--- NOTE | 2022-11-19 18:36 | Hospitalist Progress Note ---
Date of Service November 19, 2022 Assessment & Plan (1) Sepsis: (2) E coli bacteremia: (3) Abnormal finding on urinalysis: (4) Metabolic encephalopathy: (5) Hypertension: (6) Hyperlipidemia: (7) Transient atrial fibrillation: Plan: Patient had transient atrial fibrillation in setting of her acute medical condition with spontaneous conversion. Patient was seen by cardiology who did not recommend anticoagulation given high risk than benefit. She has been on sinus rhythm for multiple days now on telemetry. Continue Toprol. Plan Patient is a 82 yr female with H/O Dementia, HTN, history of SAH, hyperlipid emia, IBS and other medical problems listed below who presents from [facility] with generalized weakness and lethargy and is found to have sepsis with E. coli bacteremia Sepsis with E. coli bacteremia likely due to UTI --Blood cultures 11/16 with E. coli in 4 out of 4 bottles -- Repeat blood culture 11/18 negative -- UA abnormal, however urine culture with 3 types of organisms, high counts --BioFire negative --Status post IV cefepime>> transitioned to Rocephin for total of 10-day course of antibiotic. Can change to amox-clav at discharge. On probiotics Metabolic encephalopathy-due to above. Improved per family. Delirium precautions Hypertension- Continue amlodipine, Toprol Hyperlipidemia-on statin Dementia, mood disorder-on Namenda, Risperdal, Lexapro. Delirium precautions Urinary incontinence-on oxybutynin. Hold if worsening confusion DVT Px: SCDs for now, H/O SAH Disposition: Transfer to [facility]. Plan to discharge to [place] on Tuesday. Admission and Anticipated Discharge Date Admission Date: November 16, 2022 Subjective Patient was seen and examined at bedside in presence of family. Family states he is much better today. She was sleeping but easily aroused and was able to have small conversation. No fever, chills, chest pain or shortness of breath nausea or vomiting. Review of Systems Review of Systems: All systems reviewed & are unremarkable except as noted in Subjective Physical Exam Physical Exam: General: Lying comfortably in bed, not in distress, on room air HEENT: EOMI, [place], MMM Chest: Clear breath sounds bilaterally, no wheezes or crackles CVS: Regular rate and rhythm, normal heart sounds, no murmur Abdomen: Soft, non tender, not distended, normal bowel sounds Neuro: Awake, alert, conversing okay Extremities: No cyanosis, clubbing or edema Results & Data Results & Data Vital Signs (Past 12 Hours) Vital Signs Temp Pulse Pulse Resp BP BP Pulse Ox 11/19/22 16:05 79 11/19/22 15:23 36.7 C 78 19 145/82 H 96 11/19/22 11:22 37.5 C 81 19 150/76 H 94 11/19/22 08:30 82 11/19/22 07:52 37.7 C H 84 19 156/74 H 94 11/19/22 07:50 80 18 156/80 H 93 O2 Del Method O2 Flow Rate 11/19/22 16:05 11/19/22 15:23 Nasal Cannula 2 11/19/22 11:22 Nasal Cannula 2 11/19/22 08:30 11/19/22 07:52 Room Air 11/19/22 07:50 Room Air Laboratory Results Short CBC 11/19/22 Range/Units 06:22 WBC 13.05 H (4.8-10.8) K/ul Hgb 10.0 L (12.0-16.0) g/dl Hct 30.0 L (37.0-47.0) % Plt Count 265 (130-400) K/uL BMP 11/19/22 06:22 Sodium 141 Potassium 4.1 Chloride 110 H Carbon Dioxide 25 BUN 24 H Creatinine 0.62 Glucose 134 H Calcium 9.3 Medications Administered Current Inpatient Medications Acetaminophen (Acetaminophen 325 Mg Tab) 975 mg PO TID PRN PRN Reason: Pain Stop: 12/16/22 15:41 Amlodipine Besylate (Amlodipine Besylate 5 Mg Tab) 5 mg PO QAM MEG Stop: 12/17/22 08:59 Last Admin: 11/19/22 07:57 Dose: 5 mg Atorvastatin Calcium (Atorvastatin 20 Mg Tab) 20 mg PO HS MEG Stop: 12/16/22 20:59 Last Admin: 11/18/22 21:44 Dose: 20 mg Bisacodyl (Bisacodyl 10 Mg Supp) 10 mg [place] DAILY PRN PRN Reason: Constipation Stop: 12/16/22 15:41 Chlorhexidine Gluconate (Chlorhexidine Gluconate 0.12% 480 Ml) 15 ml MT TID MEG Stop: 12/16/22 20:59 Last Admin: 11/19/22 14:40 Dose: 15 ml Docusate Sodium (Docusate Sodium 100 Mg Cap) 100 mg PO BID MEG Stop: 12/16/22 20:59 Last Admin: 11/19/22 08:30 Dose: 100 mg Escitalopram Oxalate (Escitalopram Oxalate 10 Mg Tab) 10 mg PO DAILY MEG Stop: 12/17/22 08:59 Last Admin: 11/19/22 08:00 Dose: 10 mg Ceftriaxone Sodium 2,000 mg/ (Dextrose) 50 mls @ 100 mls/hr IV Q24H MEG Stop: 12/02/22 20:59 Last Infusion: 11/18/22 22:41 Dose: Infused Magnesium Hydroxide (Magnesium Hydroxide Susp 30 Ml Udc) 30 ml PO DAILY MEG Stop: 12/17/22 08:59 Last Admin: 11/19/22 08:00 Dose: 30 ml Melatonin (Melatonin 3 Mg Tab) 3 mg PO HS PRN PRN Reason: Sleep Stop: 12/17/22 17:23 Memantine (Memantine Hcl 5 Mg Tab) 5 mg PO DAILY MEG Stop: 12/17/22 08:59 Last Admin: 11/19/22 08:00 Dose: 5 mg Metoprolol Succinate (Metoprolol Succ 50mg Ext Rel Tab) 100 mg PO QAM MEG Stop: 12/17/22 08:59 Last Admin: 11/19/22 08:01 Dose: 100 mg Mirtazapine (Mirtazapine Tab 15 Mg Tab) 7.5 mg PO HS MEG Stop: 12/16/22 20:59 Last Admin: 11/18/22 21:44 Dose: 7.5 mg Ondansetron HCl (Ondansetron Inj 2 Mg/Ml 2 Ml Vial) 4 mg IV Q6H PRN PRN Reason: Nausea Stop: 12/16/22 15:41 Oxybutynin Chloride (Oxybutynin Chloride Xl 5 Mg Tabcr) 5 mg PO DAILY MEG Stop: 12/17/22 08:59 Last Admin: 11/19/22 08:01 Dose: 5 mg Polyethylene Glycol (Polyethylene (Miralax) 17 Gm Pack) 17 gm PO DAILY PRN PRN Reason: Constipation Stop: 12/16/22 15:41 Risperidone (Risperidone 0.5 Mg Tablet) 0.5 mg PO BID MEG Stop: 12/16/22 20:59 Last Admin: 11/19/22 08:02 Dose: 0.5 mg Saccharomyces Boulardii (Saccharomyces Boulardii 250 Mg Cap) 250 mg PO DAILY [facility] Stop: 12/20/22 08:59 Sennosides (Senna 8.6 Mg Tab) 17.2 mg PO BID [facility] Stop: 12/16/22 20:59 Last Admin: 11/19/22 08:03 Dose: 17.2 mg Sodium Biphosphate/Sodium Phosphate (Sod Phosphate/Sod Biphosphate Enema 132 Ml Btl) 118 ml [place] DAILY PRN PRN Reason: Constipation Stop: 12/16/22 15:41
[2022-11-19] MEDS: ATORVASTATIN 20 MG TAB PO SCH (21:56)
[2022-11-19] MEDS: cefTRIAXone SODIUM 2,000 MG in DEXTROSE 5 % MINI-B 50 ML IV SCH (21:56)
[2022-11-19] MEDS: MIRTAZAPINE TAB 15 MG TAB PO SCH (21:57)
[2022-11-20] MEDS: MAGNESIUM HYDROXIDE SUSP 30 ML UDC PO SCH (07:38)
[2022-11-20] MEDS: CHLORHEXIDINE GLUCONATE 0.12% 480 ML MT SCH ×3 (07:39→21:43)
[2022-11-20] MEDS: SACCHAROMYCES BOULARDII 250 MG CAP PO SCH (07:40)
[2022-11-20] MEDS: MEMANTINE HCL 5 MG TAB PO SCH (07:40)
[2022-11-20] MEDS: risperiDONE 0.5 MG TABLET PO SCH ×2 (07:40→21:42)
[2022-11-20] MEDS: amLODIPine BESYLATE 5 MG TAB PO SCH (07:41)
[2022-11-20] MEDS: METOPROLOL SUCC 50MG EXT REL TAB PO SCH (07:41)
[2022-11-20] MEDS: ESCITALOPRAM OXALATE 10 MG TAB PO SCH (07:42)
[2022-11-20] MEDS: SENNA 8.6 MG TAB PO SCH ×2 (07:42→21:42)
[2022-11-20] MEDS: OXYBUTYNIN CHLORIDE XL 5 MG TABCR PO SCH (07:43)
[2022-11-20] MEDS: DOCUSATE SODIUM 100 MG CAP PO SCH (07:45)
--- NOTE | 2022-11-20 13:06 | Hospitalist Progress Note ---
Date of Service November 20, 2022 Assessment & Plan (1) Sepsis: (2) E coli bacteremia: (3) Abnormal finding on urinalysis: (4) Metabolic encephalopathy: (5) Hypertension: (6) Hyperlipidemia: (7) Transient atrial fibrillation: Plan Patient is a 82 yr female with H/O Dementia, HTN, history of SAH, hyperlipidemia, IBS and other medical problems listed below who presents from [facility] with generalized weakness and lethargy and is found to have sepsis with E. coli bacteremia Sepsis with E. coli bacteremia likely due to UTI --Blood cultures 11/16 with E. coli in 4 out of 4 bottles -- Repeat blood culture 11/18 negative -- UA abnormal, however urine culture with 3 types of organisms, high counts --BioFire negative --Status post IV cefepime>> transitioned to Rocephin for total of 10-day course of antibiotic. Can change to amox-clav at discharge. On probiotics Metabolic encephalopathy-due to above. Improved per family. Delirium precautions Hypertension- Continue amlodipine, Toprol Hyperlipidemia-on statin Dementia, mood disorder-on Namenda, Risperdal, Lexapro. Delirium precautions Urinary incontinence-on oxybutynin. Hold if worsening confusion Transient atrial fibrillation in setting of her acute medical condition with spontaneous conversion. Patient was seen by cardiology who did not recommend anticoagulation given high risk than benefit. She has been on sinus rhythm for multiple days now on telemetry. Continue Toprol. Disposition: Plan to discharge to [place] on Tuesday. Patient is medically stable for transfer. Admission and Anticipated Discharge Date Admission Date: November 16, 2022 Subjective Patient was seen and examined at bedside. She is sleeping but easily arousable, answers simple questions. Denies any issues. No fever, chills, chest pain, shortness of breath, nausea or vomiting Review of Systems Review of Systems: All systems reviewed & are unremarkable except as noted in Subjective Physical Exam Physical Exam: General: Sleeping comfortably in bed, not in distress, on room air HEENT: EOMI, [place], MMM Chest: Clear breath sounds bilaterally, no wheezes or crackles CVS: Regular rate and rhythm, normal heart sounds, no murmur Abdomen: Soft, non tender, not distended, normal bowel sounds Neuro: Awake, alert, conversing okay Extremities: No cyanosis, clubbing or edema Results & Data Results & Data Vital Signs (Past 12 Hours) Vital Signs Temp Pulse Resp BP Pulse Ox O2 Del Method 11/20/22 12:05 36.8 C 65 18 137/79 95 Room Air 11/20/22 09:11 Room Air 11/20/22 07:45 36.6 C 76 18 157/77 H 97 Room Air 11/20/22 04:53 36.9 C 72 18 147/77 H 95 Room Air Medications Administered Current Inpatient Medications Acetaminophen (Acetaminophen 325 Mg Tab) 975 mg PO TID PRN PRN Reason: Pain Stop: 12/16/22 15:41 Amlodipine Besylate (Amlodipine Besylate 5 Mg Tab) 5 mg PO QAM MEG Stop: 12/17/22 08:59 Last Admin: 11/20/22 07:41 Dose: 5 mg Atorvastatin Calcium (Atorvastatin 20 Mg Tab) 20 mg PO HS MEG Stop: 12/16/22 20:59 Last Admin: 11/19/22 21:56 Dose: 20 mg Bisacodyl (Bisacodyl 10 Mg Supp) 10 mg [place] DAILY PRN PRN Reason: Constipation Stop: 12/16/22 15:41 Chlorhexidine Gluconate (Chlorhexidine Gluconate 0.12% 480 Ml) 15 ml MT TID MEG Stop: 12/16/22 20:59 Last Admin: 11/20/22 07:39 Dose: 15 ml Docusate Sodium (Docusate Sodium 100 Mg Cap) 100 mg PO BID MEG Stop: 12/16/22 20:59 Last Admin: 11/20/22 07:45 Dose: 100 mg Escitalopram Oxalate (Escitalopram Oxalate 10 Mg Tab) 10 mg PO DAILY MEG Stop: 12/17/22 08:59 Last Admin: 11/20/22 07:42 Dose: 10 mg Ceftriaxone Sodium 2,000 mg/ (Dextrose) 50 mls @ 100 mls/hr IV Q24H MEG Stop: 12/02/22 20:59 Last Infusion: 11/19/22 22:30 Dose: Infused Magnesium Hydroxide (Magnesium Hydroxide Susp 30 Ml Udc) 30 ml PO DAILY MEG Stop: 12/17/22 08:59 Last Admin: 11/20/22 07:38 Dose: Not Given Melatonin (Melatonin 3 Mg Tab) 3 mg PO HS PRN PRN Reason: Sleep Stop: 12/17/22 17:23 Memantine (Memantine Hcl 5 Mg Tab) 5 mg PO DAILY [facility] Stop: 12/17/22 08:59 Last Admin: 11/20/22 07:40 Dose: 5 mg Metoprolol Succinate (Metoprolol Succ 50mg Ext Rel Tab) 100 mg PO QAM MEG Stop: 12/17/22 08:59 Last Admin: 11/20/22 07:41 Dose: 100 mg Mirtazapine (Mirtazapine Tab 15 Mg Tab) 7.5 mg PO HS [facility] Stop: 12/16/22 20:59 Last Admin: 11/19/22 21:57 Dose: 7.5 mg Ondansetron HCl (Ondansetron Inj 2 Mg/Ml 2 Ml Vial) 4 mg IV Q6H PRN PRN Reason: Nausea Stop: 12/16/22 15:41 Oxybutynin Chloride (Oxybutynin Chloride Xl 5 Mg Tabcr) 5 mg PO DAILY [facility] Stop: 12/17/22 08:59 Last Admin: 11/20/22 07:43 Dose: 5 mg Polyethylene Glycol (Polyethylene (Miralax) 17 Gm Pack) 17 gm PO DAILY PRN PRN Reason: Constipation Stop: 12/16/22 15:41 Risperidone (Risperidone 0.5 Mg Tablet) 0.5 mg PO BID [facility] Stop: 12/16/22 20:59 Last Admin: 11/20/22 07:40 Dose: 0.5 mg Saccharomyces Boulardii (Saccharomyces Boulardii 250 Mg Cap) 250 mg PO DAILY [facility] Stop: 12/20/22 08:59 Last Admin: 11/20/22 07:40 Dose: 250 mg Sennosides (Senna 8.6 Mg Tab) 17.2 mg PO BID MEG Stop: 12/16/22 20:59 Last Admin: 11/20/22 07:42 Dose: 17.2 mg Sodium Biphosphate/Sodium Phosphate (Sod Phosphate/Sod Biphosphate Enema 132 Ml Btl) 118 ml [place] DAILY PRN PRN Reason: Constipation Stop: 12/16/22 15:41
[2022-11-20] MEDS: MIRTAZAPINE TAB 15 MG TAB PO SCH (21:42)
[2022-11-20] MEDS: ATORVASTATIN 20 MG TAB PO SCH (21:42)
[2022-11-20] MEDS: cefTRIAXone SODIUM 2,000 MG in DEXTROSE 5 % MINI-B 50 ML IV SCH (21:45)
[2022-11-21] MEDS: DOCUSATE SODIUM 100 MG CAP PO SCH ×3 (06:24→21:13)
[2022-11-21] MEDS: CHLORHEXIDINE GLUCONATE 0.12% 480 ML MT SCH ×3 (07:34→21:05)
[2022-11-21] MEDS: MAGNESIUM HYDROXIDE SUSP 30 ML UDC PO SCH (07:34)
[2022-11-21] MEDS: SENNA 8.6 MG TAB PO SCH ×2 (07:35→21:14)
[2022-11-21] MEDS: amLODIPine BESYLATE 5 MG TAB PO SCH (07:35)
[2022-11-21] MEDS: SACCHAROMYCES BOULARDII 250 MG CAP PO SCH (07:36)
[2022-11-21] MEDS: ESCITALOPRAM OXALATE 10 MG TAB PO SCH (07:36)
[2022-11-21] MEDS: risperiDONE 0.5 MG TABLET PO SCH ×2 (07:36→21:14)
[2022-11-21] MEDS: MEMANTINE HCL 5 MG TAB PO SCH (07:37)
[2022-11-21] MEDS: METOPROLOL SUCC 50MG EXT REL TAB PO SCH (07:38)
[2022-11-21] MEDS: OXYBUTYNIN CHLORIDE XL 5 MG TABCR PO SCH (07:38)
--- NOTE | 2022-11-21 09:31 | Hospitalist Progress Note ---
Date of Service November 21, 2022 Assessment & Plan (1) Sepsis: (2) E coli bacteremia: (3) Abnormal finding on urinalysis: (4) Metabolic encephalopathy: (5) Hypertension: (6) Hyperlipidemia: (7) Transient atrial fibrillation: Plan Patient is a 82 yr female with H/O Dementia, HTN, history of SAH, hyperlipidemia, IBS and other medical problems listed below who presents from [facility] with generalized weakness and lethargy and is found to have sepsis with E. coli bacteremia Sepsis with E. coli bacteremia likely due to UTI --Blood cultures 11/16 with E. coli in 4 out of 4 bottles -- Repeat blood culture 11/18 negative -- UA abnormal, however urine culture with 3 types of organisms, high counts --BioFire negative --Status post IV cefepime>> transitioned to Rocephin for total of 10-day course of antibiotic. Can change to amox-clav at discharge. On probiotics Metabolic encephalopathy-due to above. Improved per family. Delirium precautions Hypertension- Continue amlodipine, Toprol Hyperlipidemia-on statin Dementia, mood disorder-on Namenda, Risperdal, Lexapro. Delirium precautions Urinary incontinence-on oxybutynin. Hold if worsening confusion Transient atrial fibrillation in setting of her acute medical condition with spontaneous conversion. Patient was seen by cardiology who did not recommend anticoagulation given high risk than benefit. She has been on sinus rhythm for multiple days now on telemetry. Continue Toprol. Disposition: Plan to discharge to [place] on Tuesday. Patient is medically stable for transfer. Admission and Anticipated Discharge Date Admission Date: November 16, 2022 Subjective Patient was seen and examined at bedside. She is much more awake alert today and answering questions appropriately. Denies any issues. Denies any chest pain, shortness of breath, nausea vomiting, fever or chills. Review of Systems Review of Systems: All systems reviewed & are unremarkable except as noted in Subjective Physical Exam Physical Exam: General: Sitting comfortably in bed, not in distress, on room air HEENT: EOMI, [place], MMM Chest: Clear breath sounds bilaterally, no wheezes or crackles CVS: Regular rate and rhythm, normal heart sounds, no murmur Abdomen: Soft, non tender, not distended, normal bowel sounds Neuro: Awake, alert, conversing okay Extremities: No cyanosis, clubbing or edema Results & Data Results & Data Vital Signs (Past 12 Hours) Vital Signs Temp Pulse Resp BP Pulse Ox O2 Del Method 11/21/22 08:28 37.0 C 85 20 145/77 H 93 Room Air 11/21/22 07:50 Room Air 11/21/22 04:28 36.9 C 74 18 157/70 H 95 Room Air 11/20/22 23:00 37.4 C 77 16 147/71 H 93 Room Air Medications Administered Current Inpatient Medications Acetaminophen (Acetaminophen 325 Mg Tab) 975 mg PO TID PRN PRN Reason: Pain Stop: 12/16/22 15:41 Amlodipine Besylate (Amlodipine Besylate 5 Mg Tab) 5 mg PO QAM MEG Stop: 12/17/22 08:59 Last Admin: 11/21/22 07:35 Dose: 5 mg Atorvastatin Calcium (Atorvastatin 20 Mg Tab) 20 mg PO HS MEG Stop: 12/16/22 20:59 Last Admin: 11/20/22 21:42 Dose: 20 mg Bisacodyl (Bisacodyl 10 Mg Supp) 10 mg [place] DAILY PRN PRN Reason: Constipation Stop: 12/16/22 15:41 Chlorhexidine Gluconate (Chlorhexidine Gluconate 0.12% 480 Ml) 15 ml MT TID MEG Stop: 12/16/22 20:59 Last Admin: 11/21/22 07:34 Dose: 15 ml Docusate Sodium (Docusate Sodium 100 Mg Cap) 100 mg PO BID MEG Stop: 12/16/22 20:59 Last Admin: 11/21/22 07:34 Dose: 100 mg Escitalopram Oxalate (Escitalopram Oxalate 10 Mg Tab) 10 mg PO DAILY MEG Stop: 12/17/22 08:59 Last Admin: 11/21/22 07:36 Dose: 10 mg Ceftriaxone Sodium 2,000 mg/ (Dextrose) 50 mls @ 100 mls/hr IV Q24H MEG Stop: 12/02/22 20:59 Last Infusion: 11/20/22 22:20 Dose: Infused Magnesium Hydroxide (Magnesium Hydroxide Susp 30 Ml Udc) 30 ml PO DAILY MEG Stop: 12/17/22 08:59 Last Admin: 11/21/22 07:34 Dose: 30 ml Melatonin (Melatonin 3 Mg Tab) 3 mg PO HS PRN PRN Reason: Sleep Stop: 12/17/22 17:23 Memantine (Memantine Hcl 5 Mg Tab) 5 mg PO DAILY MEG Stop: 12/17/22 08:59 Last Admin: 11/21/22 07:37 Dose: 5 mg Metoprolol Succinate (Metoprolol Succ 50mg Ext Rel Tab) 100 mg PO QAM MEG Stop: 12/17/22 08:59 Last Admin: 11/21/22 07:38 Dose: 100 mg Mirtazapine (Mirtazapine Tab 15 Mg Tab) 7.5 mg PO HS MEG Stop: 12/16/22 20:59 Last Admin: 11/20/22 21:42 Dose: 7.5 mg Ondansetron HCl (Ondansetron Inj 2 Mg/Ml 2 Ml Vial) 4 mg IV Q6H PRN PRN Reason: Nausea Stop: 12/16/22 15:41 Oxybutynin Chloride (Oxybutynin Chloride Xl 5 Mg Tabcr) 5 mg PO DAILY MEG Stop: 12/17/22 08:59 Last Admin: 11/21/22 07:38 Dose: 5 mg Polyethylene Glycol (Polyethylene (Miralax) 17 Gm Pack) 17 gm PO DAILY PRN PRN Reason: Constipation Stop: 12/16/22 15:41 Risperidone (Risperidone 0.5 Mg Tablet) 0.5 mg PO BID MEG Stop: 12/16/22 20:59 Last Admin: 11/21/22 07:36 Dose: 0.5 mg Saccharomyces Boulardii (Saccharomyces Boulardii 250 Mg Cap) 250 mg PO DAILY MEG Stop: 12/20/22 08:59 Last Admin: 11/21/22 07:36 Dose: 250 mg Sennosides (Senna 8.6 Mg Tab) 17.2 mg PO BID MEG Stop: 12/16/22 20:59 Last Admin: 11/21/22 07:35 Dose: 17.2 mg Sodium Biphosphate/Sodium Phosphate (Sod Phosphate/Sod Biphosphate Enema 132 Ml Btl) 118 ml [place] DAILY PRN PRN Reason: Constipation Stop: 12/16/22 15:41
[2022-11-21] MEDS: cefTRIAXone SODIUM 2,000 MG in DEXTROSE 5 % MINI-B 50 ML IV SCH (21:05)
[2022-11-21] MEDS: ATORVASTATIN 20 MG TAB PO SCH (21:06)
[2022-11-21] MEDS: MIRTAZAPINE TAB 15 MG TAB PO SCH (21:14)
[2022-11-22 07:35] LABS: BUN Creatinine Ratio 53.6 (10-20); Calcium 9.1 mg/dl (8.6-10.3); Est GFR (African American) 99.9 ml/min; Est GFR (Non-African American) 86.2 ml/min; Potassium 3.6 mmol/L (3.5-5.1)
[2022-11-22] MEDS: amLODIPine BESYLATE 5 MG TAB PO SCH (08:25)
[2022-11-22] MEDS: SENNA 8.6 MG TAB PO SCH ×2 (08:25→21:30)
[2022-11-22] MEDS: risperiDONE 0.5 MG TABLET PO SCH ×2 (08:25→21:31)
[2022-11-22] MEDS: ESCITALOPRAM OXALATE 10 MG TAB PO SCH (08:26)
[2022-11-22] MEDS: OXYBUTYNIN CHLORIDE XL 5 MG TABCR PO SCH (08:26)
[2022-11-22] MEDS: METOPROLOL SUCC 50MG EXT REL TAB PO SCH (08:26)
[2022-11-22] MEDS: SACCHAROMYCES BOULARDII 250 MG CAP PO SCH (08:26)
[2022-11-22] MEDS: MEMANTINE HCL 5 MG TAB PO SCH (08:26)
[2022-11-22] MEDS: DOCUSATE SODIUM 100 MG CAP PO SCH ×2 (08:27→21:31)
[2022-11-22] MEDS: CHLORHEXIDINE GLUCONATE 0.12% 480 ML MT SCH ×3 (08:28→21:32)
[2022-11-22 08:30] LABS: Hematocrit (blood only) 30.5 % (37.0-47.0); Mean Corpuscular Hemoglobin 30.8 pg (25.0-34.0); Mean Corpuscular Hgb Conc 32.8 g/dL (32.0-36.0); Mean Corpuscular Volume 93.8 fL (80.0-100.0); Mean Platelet Volume 10.7 fL (9.4-12.4); Platelet Count 260 K/uL (130-400); RDW Coefficient of Variation 14.1 % (11.5-14.5); RDW Standard Deviation 48.2 fL (36.4-46.3); Red Blood Count 3.25 M/uL (4.20-5.40); White Blood Count 12.25 K/ul (4.8-10.8)
[2022-11-22] MEDS: MAGNESIUM HYDROXIDE SUSP 30 ML UDC PO SCH (08:38)
--- NOTE | 2022-11-22 09:16 | Hospitalist Progress Note ---
Date of Service November 22, 2022 Assessment & Plan (1) Sepsis: (2) E coli bacteremia: (3) Abnormal finding on urinalysis: (4) Metabolic encephalopathy: (5) Hypertension: (6) Hyperlipidemia: (7) Transient atrial fibrillation: Plan Patient is a 82 yr female with PMHx significant for H/O Dementia, HTN, history of SAH, hyperlipidemia, IBS who presented from [facility] with generalized weakness and lethargy and was found to have sepsis with E. coli bacteremia Sepsis with E. coli bacteremia likely due to UTI Blood cultures 11/16 with E. coli in 4 out of 4 bottles Repeat blood culture 11/18 negative UA abnormal, however urine culture with 3 types of organisms, high counts BioFire negative Treated with IV cefepime, transitioned to Rocephin for total of 10-day course of antibiotic. ID recommendations- recommending IV Rocephin treatment while hospitalized but can discharge on oral cephalosporin. Advising against PO Augmentin. Metabolic encephalopathy due to above. Improved per family. Delirium precautions Hypertension Continue amlodipine, Toprol Hyperlipidemia on statin Dementia mood disorder on Namenda, Risperdal, Lexapro. Delirium precautions Urinary incontinence on oxybutynin. Hold if worsening confusion Transient atrial fibrillation in setting of her acute medical condition with spontaneous conversion. Patient was seen by cardiology who did not recommend anticoagulation given high risk than benefit. She has been on sinus rhythm for multiple days now on telemetry. Continue Toprol. Disposition: Plan to discharge to [place]. Patient is medically stable for transfer. Admission and Anticipated Discharge Date Admission Date: November 16, 2022 Subjective Pt seen sleeping deeply, mouth open. Review of Systems Review of Systems: Unobtainable due to cognitive status Physical Exam Physical Exam: General:Sleeping Skin: No noted rashes or bruises Psych: could not be determined Neuro: drowsy HEENT: NC/AT Chest: Nontender to palpation. CV: RRR Resp: no increased effort of breathing Abdomen: Soft, nontender, nondistended. Extremities: No edema in lower extremities bilaterally. Results & Data Results & Data Vital Signs (Past 12 Hours) Vital Signs Temp Pulse Resp BP Pulse Ox O2 Del Method 11/22/22 08:00 Room Air 11/22/22 07:26 36.4 C L 57 L 18 120/75 95 Room Air 11/22/22 03:47 37 C 58 L 14 128/72 93 Room Air 11/21/22 23:23 37.7 C H 83 20 116/63 93 Room Air
--- NOTE | 2022-11-22 15:09 | Infectious Disease Consult ---
Date of Service November 22, 2022 Telehealth Information I performed this visit using a real-time telehealth connection between my location and the patients location ([facility]). After connecting through interactive tele-video, patient was identified by name and date of and/or wristband check.Patient (or authorized healthcare admitting representative) was informed that this was a telemedicine visit and it was being conducted confidentially over secure lines. My office door was closed and no one else was present in the room with me.Patient (or authorized healthcare admitting representative) provided consent to proceed with the visit, expressed an understanding of privacy and security of the telemedicine visit, and gave permission to have a hospital admitting representative in the room in order to assist with the visit and to conduct portions of the visit, as needed. I informed the patient (or authorized healthcare admitting representative) that I reviewed their record and presented the opportunity for them to ask any questions regarding the visit today. The patient agreed to participate. Assessment & Plan (1) E coli bacteremia: Plan: Assessment: Sepsis E coli bacteremia Suspected acute pyelonephritis AMS Hx of IBS and dementia Hx of cephalexin (hives) Recommendations: - Continue ceftriaxone while inpatient - May discharge the patient on cefuroxime 500 mg po q12 hours or cefdinir 300 mg po q12 hours to complete total 14 days of abx therapy, ending on 11/30/22. She is able to take oral medication. - ID signing off. I do not recommend using augmentin as the E coli was resistant to ampicillin/sulbactam. It is reasonable to use oral 2nd generation cephalosporin or 3rd generation cephalosporin. More than 50% of [id number] visit was spent counseling and coordinating care pertaining to the patient's infection diagnosis, additional work-up, and treatment option(s) as well as potential adverse events of the treatment. (2) Acute pyelonephritis: History of Present Illness History of Present Illness This 82 y/o female w/ hx of dementia, HTN, SAH, HLD, and IBS, presented from [facility] to [facility] for generalized weakness and lethargy and was found to have E coli bacteremia (4 out of 4 bottles) w/ acute pyelonephritis (pyuria and multiple jaylin on urine culture). She was noted to have fever w/ leukocytosis and perinep hric and perirenal stranding on CT. She is still drowsy but clinically improved. She is able to answer questions but sounds confused at times. She has ad UTI in the past. Currently has mild stomach pain but she was able to finish her lunch today. Denies n/v, diarrhea, coughing, cp, or f/c. She is reluctant to continue conversation. Allergies Allergy/AdvReac Type Severity Reaction Status Date / Time cephalexin Allergy Intermediate HIVES Verified 11/16/22 12:18 lorazepam [From Ativan] Allergy Unknown Unknown Unverified 11/16/22 12:18 zolpidem [From Ambien] AdvReac Severe "Gets Unverified 11/16/22 12:18 Violent" Home Medications Medication Instructions Recorded Confirmed Type amlodipine 5 mg tablet 5 mg PO QAM 10/28/17 11/16/22 History atorvastatin 20 mg tablet 20 mg PO HS 10/28/17 11/16/22 History metoprolol succinate 100 mg 100 mg PO QAM 10/28/17 11/16/22 History tablet,extended release 24 hr escitalopram oxalate 10 mg tablet 10 mg PO DAILY 06/16/22 11/16/22 History acetaminophen 325 mg tablet 975 mg PO TID PRN Pain 11/16/22 11/16/22 History (Tylenol) bisacodyl 10 mg rectal suppository 10 mg MS DAILY PRN Constipation 11/16/22 11/16/22 History (Dulcolax (bisacodyl)) chlorhexidine gluconate 0.12 % 15 ml buccal TID 11/16/22 11/16/22 History mouthwash docusate sodium 100 mg tablet 100 mg PO BID constipation 11/16/22 11/16/22 History magnesium hydroxide 400 mg/5 mL 1,200 mg PO DAILY constipation 11/16/22 11/16/22 History oral suspension (Milk of Magnesia) melatonin 3 mg tablet 3 mg PO HS 11/16/22 11/16/22 History memantine 5 mg tablet 5 mg PO DAILY 11/16/22 11/16/22 History mirtazapine 15 mg tablet 7.5 mg PO HS 11/16/22 11/16/22 History risperidone 0.5 mg tablet 0.5 mg PO BID 11/16/22 11/16/22 History sennosides 8.6 mg tablet (senna) 17.2 mg PO BID 11/16/22 11/16/22 History sodium phosphates 19 gram-7 118 ml MS DAILY PRN Constipation 11/16/22 11/16/22 History gram/118 mL enema (Fleet Enema) solifenacin 5 mg tablet 5 mg PO DAILY 11/16/22 11/16/22 History Patient History Medical History (Updated 11/22/22 @ 15:08 by Buck Carlin MD) Asthma as a child Hyperlipidemia Hypertension Osteoarthritis Poor historian Spinal stenosis Surgical History History of back surgery hardware present History of bilateral breast reduction surgery History of hysterectomy History of tonsillectomy Hx of cataract surgery RIGHT Family History Other Dementia Social History Smoking Status: Never smoker Second Hand Exposure: Yes; Do You Dip or Chew Tobacco: No; Hx Alcohol Use: No Hx Substance Use: No Preferred Language: Slovenian Communication Ability: Impaired 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 Required: No Beliefs That Will Affect Care: None Current Living Situation: [facility] Current Living Situation Comment: [facility] Other Information That Helps Us Care for You: No Feels Safe at Home: Yes Safety Concerns: Feels Safe At This Time Assistive Devices: None Review of Systems as above and all others negative Physical Exam Gen: no acute distress Neuro: lethargic, answering question selectively, appears to resting comfortably Results & Data Vital Signs (Past 12 Hours) Vital Signs Temp Pulse Resp BP Pulse Ox O2 Del Method 11/22/22 08:00 Room Air 11/22/22 07:26 36.4 C L 57 L 18 120/75 95 Room Air 11/22/22 03:47 37 C 58 L 14 128/72 93 Room Air Laboratory Results WBC 12.98K ->-> 12.25K H 10 Plt 260K Cr 0.56 PCT 14.45 LFT T bili 1.4, D bili 0.4, ast 16, alt 10 CXR (11/16): Cardiomegaly with pulmonary vascular congestion Diagnostic Findings UA (11/16/22): LE not reportable, WBC >30, bacteria 2+ U cx (11/16): three types of organisms Blood cx (11/16): E coli (4 of 4: R to amp/sulb; S to amox/clav, cefaz, cefep, ctx, cipro, erta, gent, lvq, norman, zosyn, tobra, bact) U cx (11/17): NG Blood cx (11/18): NGTD CT A/P (11/18): 1. Limited exam without the use of IV contrast. 2. Probable mild pulmonary edema with [id number] pleural effusions and dependent bibasilar consolidation. 3. Trace ascites with body wall edema. 4. No bowel obstruction or bowel wall thickening. 5. Nonspecific perinephric and perirenal stranding. Correlate with urinalysis. 6. Colonic diverticulosis. Medications Administered cefepime and ceftriaxone
[2022-11-22] MEDS: ACETAMINOPHEN 325 MG TAB PO PRN (17:02)
[2022-11-22] MEDS: cefTRIAXone SODIUM 2,000 MG in DEXTROSE 5 % MINI-B 50 ML IV SCH (21:29)
[2022-11-22] MEDS: MIRTAZAPINE TAB 15 MG TAB PO SCH (21:30)
[2022-11-22] MEDS: ATORVASTATIN 20 MG TAB PO SCH (21:31)
[2022-11-23 07:18] LABS: Hemoglobin 10.5 g/dl (12.0-16.0); Mean Corpuscular Hemoglobin 33.9 pg (25.0-34.0); Mean Corpuscular Volume 96.8 fL (80.0-100.0); Mean Platelet Volume 10.5 fL (9.4-12.4); Platelet Count 375 K/uL (130-400); RDW Coefficient of Variation 14.3 % (11.5-14.5)
[2022-11-23 07:20] LABS: Agglutinated RBC 3+; Eosinophils % (auto) 1.8 %; Immature Granulocytes # (auto) 0.65 K/uL (0.01-0.20); Immature Granulocytes % (auto) 5.8 %; Lymphocytes % (auto) 9.8 %; Neutrophils # (auto) 8.35 K/uL (1.40-6.50); Neutrophils % (auto) 74.6 %
[2022-11-23 07:39] LABS: Anion Gap 6 (3-11); BUN Creatinine Ratio 56.1 (10-20); Blood Urea Nitrogen 23 mg/dl (6-23); Calcium 9.3 mg/dl (8.6-10.3); Carbon Dioxide 29 mmol/L (21-32); Chloride 107 mmol/L (98-107); Creatinine Clr Calc Pharmacy 81.9 ml/min; Est GFR (African American) 110.7 ml/min; Est GFR (Non-African American) 95.5 ml/min; Glucose 114 mg/dl (70-99(Fasting)); Magnesium 2.1 mg/dl (1.7-2.4); Phosphorus 2.6 mg/dl (2.5-4.9); Sodium 142 mmol/L (136-145)
[2022-11-23] MEDS: MAGNESIUM HYDROXIDE SUSP 30 ML UDC PO SCH (09:03)
[2022-11-23] MEDS: DOCUSATE SODIUM 100 MG CAP PO SCH ×2 (09:03→20:07)
[2022-11-23] MEDS: CHLORHEXIDINE GLUCONATE 0.12% 480 ML MT SCH ×3 (09:04→20:01)
[2022-11-23] MEDS: SACCHAROMYCES BOULARDII 250 MG CAP PO SCH (09:04)
[2022-11-23] MEDS: risperiDONE 0.5 MG TABLET PO SCH ×2 (09:04→20:01)
[2022-11-23] MEDS: ESCITALOPRAM OXALATE 10 MG TAB PO SCH (09:04)
[2022-11-23] MEDS: OXYBUTYNIN CHLORIDE XL 5 MG TABCR PO SCH (09:05)
[2022-11-23] MEDS: METOPROLOL SUCC 50MG EXT REL TAB PO SCH (09:05)
[2022-11-23] MEDS: MEMANTINE HCL 5 MG TAB PO SCH (09:05)
[2022-11-23] MEDS: SENNA 8.6 MG TAB PO SCH ×2 (09:06→20:01)
[2022-11-23] MEDS: amLODIPine BESYLATE 5 MG TAB PO SCH (09:07)
[2022-11-23] MEDS: ATORVASTATIN 20 MG TAB PO SCH (20:01)
[2022-11-23] MEDS: cefTRIAXone SODIUM 2,000 MG in DEXTROSE 5 % MINI-B 50 ML IV SCH (20:06)
[2022-11-23] MEDS: MIRTAZAPINE TAB 15 MG TAB PO SCH (20:07)
--- NOTE | 2022-11-24 02:16 | Hospitalist Progress Note ---
Date of Service November 23, 2022 Assessment & Plan (1) Sepsis: (2) E coli bacteremia: (3) Abnormal finding on urinalysis: (4) Metabolic encephalopathy: (5) Hypertension: (6) Hyperlipidemia: (7) Transient atrial fibrillation: Plan Patient is a 82 yr female with PMHx significant for H/O Dementia, HTN, history of SAH, hyperlipidemia, IBS who presented from [facility] with generalized weakness and lethargy and was found to have sepsis with E. coli bacteremia. Pt medically stable for discharge. Sepsis with E. coli bacteremia likely due to UTI Blood cultures 11/16 with E. coli in 4 out of 4 bottles Repeat blood culture 11/18 negative UA abnormal, however urine culture with 3 types of organisms, high counts BioFire negative Treated with IV cefepime, transitioned to Rocephin for total of 10-day course of antibiotic. ID recommendations- recommending IV Rocephin treatment while hospitalized but can discharge on oral cephalosporin. Advising against PO Augmentin. Metabolic encephalopathy due to above. Improved per family. Delirium precautions Hypertension Continue amlodipine, Toprol Hyperlipidemia on statin Dementia mood disorder on Namenda, Risperdal, Lexapro. Delirium precautions Urinary incontinence on oxybutynin. Hold if worsening confusion Transient atrial fibrillation in setting of her acute medical condition with spontaneous conversion. Patient was seen by cardiology who did not recommend anticoagulation given high risk than benefit. She has been on sinus rhythm for multiple days now on telemetry. Continue Toprol. Diet: HH, pureed DVT prophylaxis: SCDs ordered until start lovenox shots ordered. Disposition: Plan to discharge to [place]. Patient is medically stable for transfer. Paperwork/extensive forms completed for discharge. Admission and Anticipated Discharge Date Admission Date: November 16, 2022 Subjective Pt more awake today. States that she feels fine, denies acute concerns. Review of Systems Review of Systems: All systems reviewed & are unremarkable except as noted in Subjective Physical Exam Physical Exam: General:Alert and awake Skin: No noted rashes or bruises Psych: appropriate mood and affect Neuro: Alert and oriented HEENT: NC/AT Chest: Nontender to palpation. CV: RRR Resp: no increased effort of breathing Abdomen: Soft, nontender, nondistended. Results & Data Results & Data Vital Signs (Past 12 Hours) Vital Signs Temp Pulse Resp BP Pulse Ox O2 Del Method 11/23/22 15:26 36.6 C 71 18 126/66 96 Room Air 11/23/22 08:00 Room Air 11/23/22 07:16 36.9 C 67 17 123/63 96 Room Air
[2022-11-24 09:50] LABS: Anion Gap 4 (3-11); BUN Creatinine Ratio 52.9 (10-20); Blood Urea Nitrogen 27 mg/dl (6-23); Calcium 9.2 mg/dl (8.6-10.3); Carbon Dioxide 30 mmol/L (21-32); Chloride 109 mmol/L (98-107); Creatinine Clr Calc Pharmacy 65.9 ml/min; Est GFR (African American) 103.1 ml/min; Est GFR (Non-African American) 88.9 ml/min; Glucose 129 mg/dl (70-99(Fasting)); Magnesium 2.2 mg/dl (1.7-2.4); Phosphorus 3.5 mg/dl (2.5-4.9); Sodium 143 mmol/L (136-145)
[2022-11-24 10:05] LABS: Hematocrit (blood only) 28.5 % (37.0-47.0); Hemoglobin 9.5 g/dl (12.0-16.0); Mean Corpuscular Hemoglobin 31.7 pg (25.0-34.0); Mean Corpuscular Hgb Conc 33.3 g/dL (32.0-36.0); Mean Platelet Volume 10.2 fL (9.4-12.4); Platelet Count 430 K/uL (130-400); RDW Coefficient of Variation 14.4 % (11.5-14.5); RDW Standard Deviation 48.6 fL (36.4-46.3); White Blood Count 8.55 K/ul (4.8-10.8)
[2022-11-24 10:15] LABS: Agglutinated RBC 3+; Eosinophils % (auto) 2.3 %; Immature Granulocytes # (auto) 0.35 K/uL (0.01-0.20); Immature Granulocytes % (auto) 4.1 %; Lymphocytes # (auto) 0.95 K/uL (1.20-3.40); Lymphocytes % (auto) 11.1 %; Monocytes # (auto) 0.75 K/uL (0.11-0.59); Monocytes % (auto) 8.8 %; Neutrophils % (auto) 73.7 %
[2022-11-24] MEDS: D5W AND 1/2NSS 1,000 ML IV SCH ×2 (10:42→22:43)
[2022-11-24] MEDS: risperiDONE 0.5 MG TABLET PO SCH ×2 (11:44→22:37)
[2022-11-24] MEDS: MEMANTINE HCL 5 MG TAB PO SCH (11:44)
[2022-11-24] MEDS: amLODIPine BESYLATE 5 MG TAB PO SCH (11:44)
[2022-11-24] MEDS: SACCHAROMYCES BOULARDII 250 MG CAP PO SCH (11:45)
[2022-11-24] MEDS: ESCITALOPRAM OXALATE 10 MG TAB PO SCH (11:46)
[2022-11-24] MEDS: METOPROLOL SUCC 50MG EXT REL TAB PO SCH (11:46)
[2022-11-24] MEDS: OXYBUTYNIN CHLORIDE XL 5 MG TABCR PO SCH (11:46)
[2022-11-24] MEDS: CHLORHEXIDINE GLUCONATE 0.12% 480 ML MT SCH ×3 (11:47→21:19)
[2022-11-24] MEDS: SENNA 8.6 MG TAB PO SCH ×2 (11:47→22:37)
[2022-11-24] MEDS: DOCUSATE SODIUM 100 MG CAP PO SCH ×2 (11:59→22:42)
[2022-11-24] MEDS: MAGNESIUM HYDROXIDE SUSP 30 ML UDC PO SCH (12:00)
[2022-11-24] MEDS: ENOXAPARIN INJ 40 MG/0.4 ML SYR SQ SCH (13:38)
--- NOTE | 2022-11-24 15:26 | Hospitalist Progress Note ---
Date of Service November 24, 2022 Assessment & Plan (1) Sepsis: (2) E coli bacteremia: (3) Abnormal finding on urinalysis: (4) Metabolic encephalopathy: (5) Hypertension: (6) Hyperlipidemia: (7) Transient atrial fibrillation: Plan Patient is a 82 yr female with PMHx significant for H/O Dementia, HTN, history of SAH, hyperlipidemia, IBS who presented from [facility] with generalized weakness and lethargy and was found to have sepsis with E. coli bacteremia. Pt medically stable for discharge. Sepsis with E. coli bacteremia likely due to UTI Blood cultures 11/16 with E. coli in 4 out of 4 bottles Repeat blood culture 11/18 negative UA abnormal, however urine culture with 3 types of organisms, high counts BioFire negative Treated with IV cefepime, transitioned to Rocephin for total of 10-day course of antibiotic. ID recommendations- recommending IV Rocephin treatment while hospitalized but can discharge on oral cephalosporin. Advising against PO Augmentin. Mild Pre renal azotemia/Dehydration pt with increased lethargy today and poor intake will place on d5 1/2ns x 2L and re eval repeat cbc, cmp in a.m. Metabolic encephalopathy due to above. Improved per family. Delirium precautions Hypertension Continue amlodipine, Toprol chronic, stable Hyperlipidemia on statin chronic, stable Dementia mood disorder on Namenda, Risperdal, Lexapro. Delirium precautions Urinary incontinence on oxybutynin. Hold if worsening confusion Transient atrial fibrillation in setting of her acute medical condition with spontaneous conversion. Patient was seen by cardiology who did not recommend anticoagulation given high risk than benefit. She has been on sinus rhythm for multiple days now on telemetry. Continue Toprol. Diet: HH, pureed DVT prophylaxis:Lovenox Disposition: Plan to discharge to [place]. Patient is medically stable for transfer. Paperwork/extensive forms completed for discharge. Pt was seen and examined in collaboration with Dr. Thomas, please see addendum Admission and Anticipated Discharge Date Admission Date: November 16, 2022 Supervising Physician Co-Signing Physician Notes Pt seen and examined by myself, Raven Thomas MD on the day of service. Care was coordinated with Xi Thornton PA-C. Pt seen after notification that she was nonresponsive. On exam in the room, pt initially unresponsive but noticed eye twitching. Advised pt that it appeared that she was awake and she then opened her eyes and was conversant. Noted that she was tired but denied other concerns. Continue with Rocephin, medically stable for discharge. Otherwise as above. Subjective Patient was seen and examined in room 382. Follow-up E. coli bacteremia. ROS limited due to underlying dementia. States she feels tired. Nursing concerned over lethargy. Review of Systems Review of Systems: Unobtainable due to cognitive status Physical Exam Physical Exam: Gen: petite, elderly, NAD, arouses to verbal and tactile stimuli HEENT: Normocephalic, atraumatic, conjunctivae moist, sclerae anicteric, mucous membranes moist. Lung: Clear to Auscultation bilaterally, no wheezes/rales/rhonchi Heart: Regular rate, regular rhythm Abdomen: Soft, NT, ND +BS x 4 Extremities: No edema Skin: Warm, no rash, negative turgor. Results & Data Results & Data Vital Signs (Past 12 Hours) Vital Signs Temp Pulse Resp BP Pulse Ox O2 Del Method 11/24/22 10:48 37 C 11/24/22 07:52 37.2 C 63 16 135/73 94 Room Air Laboratory Results Short CBC 11/24/22 Range/Units 08:46 WBC 8.55 (4.8-10.8) K/ul Hgb 9.5 L (12.0-16.0) g/dl Hct 28.5 L (37.0-47.0) % Plt Count 430 H (130-400) K/uL BMP 11/24/22 11/24/22 08:46 10:09 Sodium 143 Potassium TNP 3.9 Chloride 109 H Carbon Dioxide 30 BUN 27 H Creatinine 0.51 L Glucose 129 H Calcium 9.2 Medications Administered Current Inpatient Medications Acetaminophen (Acetaminophen 325 Mg Tab) 975 mg PO TID PRN PRN Reason: Pain Stop: 12/16/22 15:41 Last Admin: 11/22/22 17:02 Dose: 975 mg Amlodipine Besylate (Amlodipine Besylate 5 Mg Tab) 5 mg PO QAM MEG Stop: 12/17/22 08:59 Last Admin: 11/24/22 11:44 Dose: 5 mg Atorvastatin Calcium (Atorvastatin 20 Mg Tab) 20 mg PO HS MEG Stop: 12/16/22 20:59 Last Admin: 11/23/22 20:01 Dose: 20 mg Bisacodyl (Bisacodyl 10 Mg Supp) 10 mg NE DAILY PRN PRN Reason: Constipation Stop: 12/16/22 15:41 Chlorhexidine Gluconate (Chlorhexidine Gluconate 0.12% 480 Ml) 15 ml MT TID MEG Stop: 12/16/22 20:59 Last Admin: 11/24/22 15:20 Dose: 15 ml Docusate Sodium (Docusate Sodium 100 Mg Cap) 100 mg PO BID MEG Stop: 12/16/22 20:59 Last Admin: 11/24/22 11:59 Dose: 100 mg Enoxaparin Sodium (Enoxaparin Inj 40 Mg/0.4 Ml Syr) 40 mg SQ Q24H MEG Stop: 12/24/22 08:59 Last Admin: 11/24/22 13:38 Dose: 40 mg Escitalopram Oxalate (Escitalopram Oxalate 10 Mg Tab) 10 mg PO DAILY MEG Stop: 12/17/22 08:59 Last Admin: 11/24/22 11:46 Dose: 10 mg Ceftriaxone Sodium 2,000 mg/ (Dextrose) 50 mls @ 100 mls/hr IV Q24H MEG Stop: 12/02/22 20:59 Last Infusion: 11/23/22 21:58 Dose: Infused Dextrose/Sodium Chloride (D5w And 1/2nss) 1,000 mls @ 80 mls/hr IV .[id number] MEG Stop: 11/25/22 11:14 Last Admin: 11/24/22 10:42 Dose: 80 mls/hr Magnesium Hydroxide (Magnesium Hydroxide Susp 30 Ml Udc) 30 ml PO DAILY MEG Stop: 12/17/22 08:59 Last Admin: 11/24/22 12:00 Dose: 30 ml Melatonin (Melatonin 3 Mg Tab) 3 mg PO HS PRN PRN Reason: Sleep Stop: 12/17/22 17:23 Last Admin: 11/23/22 20:07 Dose: 3 mg Memantine (Memantine Hcl 5 Mg Tab) 5 mg PO DAILY MEG Stop: 12/17/22 08:59 Last Admin: 11/24/22 11:44 Dose: 5 mg Metoprolol Succinate (Metoprolol Succ 50mg Ext Rel Tab) 100 mg PO QAM MEG Stop: 12/17/22 08:59 Last Admin: 11/24/22 11:46 Dose: 100 mg Mirtazapine (Mirtazapine Tab 15 Mg Tab) 7.5 mg PO HS MEG Stop: 12/16/22 20:59 Last Admin: 11/23/22 20:07 Dose: 7.5 mg Ondansetron HCl (Ondansetron Inj 2 Mg/Ml 2 Ml Vial) 4 mg IV Q6H PRN PRN Reason: Nausea Stop: 12/16/22 15:41 Oxybutynin Chloride (Oxybutynin Chloride Xl 5 Mg Tabcr) 5 mg PO DAILY MEG Stop: 12/17/22 08:59 Last Admin: 11/24/22 11:46 Dose: 5 mg Polyethylene Glycol (Polyethylene (Miralax) 17 Gm Pack) 17 gm PO DAILY PRN PRN Reason: Constipation Stop: 12/16/22 15:41 Risperidone (Risperidone 0.5 Mg Tablet) 0.5 mg PO BID MEG Stop: 12/16/22 20:59 Last Admin: 11/24/22 11:44 Dose: 0.5 mg Saccharomyces Boulardii (Saccharomyces Boulardii 250 Mg Cap) 250 mg PO DAILY MEG Stop: 12/20/22 08:59 Last Admin: 11/24/22 11:45 Dose: 250 mg Sennosides (Senna 8.6 Mg Tab) 17.2 mg PO BID MEG Stop: 12/16/22 20:59 Last Admin: 11/24/22 11:47 Dose: 17.2 mg Sodium Biphosphate/Sodium Phosphate (Sod Phosphate/Sod Biphosphate Enema 132 Ml Btl) 118 ml NE DAILY PRN PRN Reason: Constipation Stop: 12/16/22 15:41
[2022-11-24] MEDS: cefTRIAXone SODIUM 2,000 MG in DEXTROSE 5 % MINI-B 50 ML IV SCH (21:13)
[2022-11-24] MEDS: MIRTAZAPINE TAB 15 MG TAB PO SCH (22:38)
[2022-11-24] MEDS: ATORVASTATIN 20 MG TAB PO SCH (22:38)
[2022-11-25 08:10] LABS: BUN Creatinine Ratio 45.5 (10-20); Creatinine Clr Calc Pharmacy 76.3 ml/min; Est GFR (African American) 108.2 ml/min; Est GFR (Non-African American) 93.3 ml/min; Magnesium 2.1 mg/dl (1.7-2.4); Phosphorus 2.4 mg/dl (2.5-4.9); Potassium 3.8 mmol/L (3.5-5.1)
--- NOTE | 2022-11-25 09:01 | Hospitalist Progress Note ---
Date of Service November 25, 2022 Assessment & Plan (1) Sepsis: (2) E coli bacteremia: (3) Abnormal finding on urinalysis: (4) Metabolic encephalopathy: (5) Hypertension: (6) Hyperlipidemia: (7) Transient atrial fibrillation: Plan Patient is a 82 yr female with PMHx significant for H/O Dementia, HTN, history of SAH, hyperlipidemia, IBS who presented from [facility] with generalized weakness and lethargy and was found to have sepsis with E. coli bacteremia. Pt medically stable for discharge. Sepsis with E. coli bacteremia likely due to UTI Blood cultures 11/16 with E. coli in 4 out of 4 bottles Repeat blood culture 11/18 negative UA abnormal, however urine culture with 3 types of organisms, high counts BioFire negative Treated with IV cefepime, transitioned to Rocephin for total of 14-day course of antibiotic. ID recommendations -recommending IV Rocephin treatment while hospitalized but can discharge on oral cephalosporin. Advising against PO Augmentin. -continue abx until 11/30 Mild Pre renal azotemia/Dehydration pt with increased lethargy occasionally and poor intake Received 2 bags d5 1/2ns x 2L Closely monitor labs Metabolic encephalopathy due to above. Improved per family. Delirium precautions Hypertension Continue amlodipine, Toprol chronic, stable Hyperlipidemia on statin chronic, stable Dementia mood disorder on Namenda, Risperdal, Lexapro. Delirium precautions Urinary incontinence on oxybutynin. Hold if worsening confusion Transient atrial fibrillation in setting of her acute medical condition with spontaneous conversion. Patient was seen by cardiology who did not recommend anticoagulation given high risk than benefit. She has been on sinus rhythm for multiple days now on telemetry. Continue Toprol. Diet: HH, pureed DVT prophylaxis:Lovenox Disposition: Plan originally to discharge to [place]. Patient is medically stable for transfer. Paperwork/extensive forms completed for discharge. Admission and Anticipated Discharge Date Admission Date: November 16, 2022 Subjective Pt seen sitting at bedside, daughter present and helping. States she felt tired but was actively eating. Otherwise denied acute concerns. Review of Systems Review of Systems: All systems reviewed & are unremarkable except as noted in Subjective Physical Exam Physical Exam: General:Alert and awake Skin: No noted rashes or bruises Psych: appropriate mood and affect Neuro: Alert and oriented HEENT: NC/AT Chest: Nontender to palpation. CV: RRR Resp: no increased effort of breathing Abdomen: Soft, nontender, nondistended. Results & Data Results & Data Vital Signs (Past 12 Hours) Vital Signs Temp Pulse Resp BP BP Pulse Ox O2 Del Method 11/25/22 08:13 36.9 C 67 15 143/77 H 94 Room Air 11/25/22 07:38 Room Air 11/24/22 22:45 37.1 C 71 18 124/72 95 Room Air 11/24/22 21:11 36.9 C 75 15 146/71 H 94 Room Air
[2022-11-25] MEDS: ENOXAPARIN INJ 40 MG/0.4 ML SYR SQ SCH (11:41)
[2022-11-25] MEDS: amLODIPine BESYLATE 5 MG TAB PO SCH (11:42)
[2022-11-25] MEDS: SACCHAROMYCES BOULARDII 250 MG CAP PO SCH (11:43)
[2022-11-25] MEDS: SENNA 8.6 MG TAB PO SCH ×2 (11:43→19:30)
[2022-11-25] MEDS: OXYBUTYNIN CHLORIDE XL 5 MG TABCR PO SCH (11:44)
[2022-11-25] MEDS: risperiDONE 0.5 MG TABLET PO SCH ×2 (11:44→19:30)
[2022-11-25] MEDS: ESCITALOPRAM OXALATE 10 MG TAB PO SCH (11:45)
[2022-11-25] MEDS: MEMANTINE HCL 5 MG TAB PO SCH (11:45)
[2022-11-25] MEDS: METOPROLOL SUCC 50MG EXT REL TAB PO SCH (11:45)
[2022-11-25] MEDS: CHLORHEXIDINE GLUCONATE 0.12% 480 ML MT SCH ×3 (11:46→19:32)
[2022-11-25] MEDS: POT PHOSPHATE MONOBASIC W/ SOD TAB PO SCH ×3 (11:47→19:32)
[2022-11-25] MEDS: MAGNESIUM HYDROXIDE SUSP 30 ML UDC PO SCH (11:58)
[2022-11-25] MEDS: DOCUSATE SODIUM 100 MG CAP PO SCH ×2 (11:58→19:30)
[2022-11-25] MEDS: ACETAMINOPHEN 325 MG TAB PO PRN (19:29)
[2022-11-25] MEDS: cefTRIAXone SODIUM 2,000 MG in DEXTROSE 5 % MINI-B 50 ML IV SCH (19:29)
[2022-11-25] MEDS: ATORVASTATIN 20 MG TAB PO SCH (19:30)
[2022-11-25] MEDS: MIRTAZAPINE TAB 15 MG TAB PO SCH (19:31)
[2022-11-26 06:24] LABS: BUN Creatinine Ratio 44.2 (10-20); Calcium 8.8 mg/dl (8.6-10.3); Creatinine Clr Calc Pharmacy 64.6 ml/min; Est GFR (African American) 102.4 ml/min; Est GFR (Non-African American) 88.4 ml/min; Magnesium 2.1 mg/dl (1.7-2.4); Phosphorus 3.4 mg/dl (2.5-4.9)
[2022-11-26 07:37] LABS: Hematocrit (blood only) 30.8 % (37.0-47.0); Hemoglobin 10.3 g/dl (12.0-16.0); Mean Corpuscular Hemoglobin 30.9 pg (25.0-34.0); Mean Corpuscular Hgb Conc 33.4 g/dL (32.0-36.0); Mean Corpuscular Volume 92.5 fL (80.0-100.0); Mean Platelet Volume 11.2 fL (9.4-12.4); Platelet Count 275 K/uL (130-400); RDW Coefficient of Variation 15.6 % (11.5-14.5); RDW Standard Deviation 51.6 fL (36.4-46.3); Red Blood Count 3.33 M/uL (4.20-5.40); White Blood Count 9.18 K/ul (4.8-10.8)
[2022-11-26 07:49] LABS: Agglutinated RBC 3+; Basophils # (auto) 0.02 K/uL (0.00-0.20); Basophils % (auto) 0.2 %; Eosinophils # (auto) 0.26 K/uL (0.00-0.50); Eosinophils % (auto) 2.8 %; Immature Granulocytes # (auto) 0.29 K/uL (0.01-0.20); Immature Granulocytes % (auto) 3.2 %; Lymphocytes # (auto) 1.16 K/uL (1.20-3.40); Lymphocytes % (auto) 12.6 %; Monocytes # (auto) 0.88 K/uL (0.11-0.59); Monocytes % (auto) 9.6 %; Neutrophils # (auto) 6.57 K/uL (1.40-6.50); Neutrophils % (auto) 71.6 %
[2022-11-26] MEDS: risperiDONE 0.5 MG TABLET PO SCH ×2 (08:02→19:41)
[2022-11-26] MEDS: SENNA 8.6 MG TAB PO SCH ×2 (08:02→19:39)
[2022-11-26] MEDS: MEMANTINE HCL 5 MG TAB PO SCH (08:04)
[2022-11-26] MEDS: DOCUSATE SODIUM 100 MG CAP PO SCH ×2 (08:04→19:42)
[2022-11-26] MEDS: POT PHOSPHATE MONOBASIC W/ SOD TAB PO SCH ×4 (08:04→19:40)
[2022-11-26] MEDS: MAGNESIUM HYDROXIDE SUSP 30 ML UDC PO SCH (08:04)
[2022-11-26] MEDS: SACCHAROMYCES BOULARDII 250 MG CAP PO SCH (08:04)
[2022-11-26] MEDS: ESCITALOPRAM OXALATE 10 MG TAB PO SCH (08:04)
[2022-11-26] MEDS: ENOXAPARIN INJ 40 MG/0.4 ML SYR SQ SCH (08:05)
[2022-11-26] MEDS: OXYBUTYNIN CHLORIDE XL 5 MG TABCR PO SCH (08:05)
[2022-11-26] MEDS: CHLORHEXIDINE GLUCONATE 0.12% 480 ML MT SCH ×3 (08:06→19:41)
[2022-11-26] MEDS: METOPROLOL SUCC 50MG EXT REL TAB PO SCH (08:15)
[2022-11-26] MEDS: amLODIPine BESYLATE 5 MG TAB PO SCH (08:15)
--- NOTE | 2022-11-26 13:18 | Hospitalist Progress Note ---
Date of Service November 26, 2022 Assessment & Plan (1) Sepsis: (2) E coli bacteremia: (3) Abnormal finding on urinalysis: (4) Metabolic encephalopathy: (5) Hypertension: (6) Hyperlipidemia: (7) Transient atrial fibrillation: Plan Patient is a 82 yr female with PMHx significant for H/O Dementia, HTN, history of SAH, hyperlipidemia, IBS who presented from [facility] with generalized weakness and lethargy and was found to have sepsis with E. coli bacteremia. Pt medically stable for discharge. Sepsis with E. coli bacteremia likely due to UTI Blood cultures 11/16 with E. coli in 4 out of 4 bottles Repeat blood culture 11/18 negative UA abnormal, however urine culture with 3 types of organisms, high counts BioFire negative Treated with IV cefepime, transitioned to Rocephin for total of 14-day course of antibiotic. ID recommendations -recommending IV Rocephin treatment while hospitalized but can discharge on oral cephalosporin. Advising against PO Augmentin. -continue abx until 11/30 Acute DVT On 11/26, pt noted to have a red, swollen, tender left ankle Doppler US ordered, confirmed presence of DVT in one of the peroneal veins Has been on Lovenox SQ since Nov 24 while hospitalized, previously on SCDs due to hx of SAH Started on heparin drip, consider DOAC Noted that pt also has Hx of A fib, and cardiology recommending against retirement anticoagulation Transient atrial fibrillation in setting of her acute medical condition with spontaneous conversion. Patient was seen by cardiology who did not recommend anticoagulation given high risk than benefit. She has been on sinus rhythm for multiple days now on telemetry. Continue Toprol. Pt now with acute DVT on 11/26- appreciate cardiology reconsidering recs Mild Pre renal azotemia/Dehydration pt with increased lethargy occasionally and poor intake Received 2 bags d5 1/2ns x 2L Closely monitor labs Metabolic encephalopathy due to above. Improved per family. Delirium precautions Hypertension Continue amlodipine, Toprol chronic, stable Hyperlipidemia on statin chronic, stable Dementia mood disorder on Namenda, Risperdal, Lexapro. Delirium precautions Urinary incontinence on oxybutynin. Hold if worsening confusion Diet: HH, pureed DVT prophylaxis: previously on Lovenox, now heparin drip Disposition: SNF at [facility] (auth pending) with discharge to [place]. Patient is medically stable for transfer. Paperwork/extensive forms completed for discharge. Admission and Anticipated Discharge Date Admission Date: November 16, 2022 Subjective Pt seen multiple times. In the AM, stated that she was tired. Later in the day noted to have a hot swollen, red ankle. Per nursing has been receiving Lovenox ordered. Review of Systems Review of Systems: All systems reviewed & are unremarkable except as noted in Subjective Physical Exam Physical Exam: General:Alert and awake Skin: No noted rashes or bruises Psych: appropriate mood and affect Neuro: Alert and oriented HEENT: NC/AT Chest: Nontender to palpation. CV: RRR Resp: no increased effort of breathing Abdomen: Soft, nontender, nondistended. Extremities: Left ankle swollen and red, warm to the touch Results & Data Results & Data Vital Signs (Past 12 Hours) Vital Signs Temp Pulse Resp BP Pulse Ox O2 Del Method 11/26/22 09:55 Room Air 11/26/22 08:11 36.5 C 66 16 149/75 H 94 Room Air
--- NOTE | 2022-11-26 15:55 | Ultrasound Report ---
ULTRASOUND LEFT LOWER EXTREMITY VENOUS CLINICAL HISTORY: Left leg swelling and erythema. COMPARISON STUDY: No priors. TECHNIQUE: Real-time, grayscale, and color Doppler sonography of the deep veins of the left lower ext remity was performed from the inguinal crease to the calf. Compression and augmentation were utilized . The examination is suboptimal due to lack of patient cooperation. FINDINGS: Deep venous thrombosis is identified in the calf and one of the peroneal veins. The remaini ng calf vessels appear clear. The common femoral and superficial femoral veins are patent and normall y compressible. The patient would not allow imaging of the popliteal vein. The greater saphenous vein and the profunda femoris vein at the junction with the common femoral vein are clear. IMPRESSION: Deep venous thrombosis is identified in the calf within one of the peroneal veins. ACT 112: Negative or not required by law. Electronically signed by: Jasson Hannah M.D. 11/26/2022 3:53 PM
[2022-11-26] MEDS ORDERED: Heparin IV Adult Wt-Based Standard WITH Bolus Protocol IV STA (16:25)
[2022-11-26] MEDS ORDERED: Heparin IV Adult Wt-Based Low-Dose *NO* Bolus Protocol IV STA (16:36)
[2022-11-26] MEDS ORDERED: HEPARIN SOD (PORCINE) 1000 UNIT/ML IV ONE (16:41)
[2022-11-26] MEDS ORDERED: HEPARIN SODIUM/DEXTROSE 25,000 UNITS/500 ML BAG IV SCH (16:45)
[2022-11-26] MEDS: cefTRIAXone SODIUM 2,000 MG in DEXTROSE 5 % MINI-B 50 ML IV SCH (19:37)
[2022-11-26] MEDS: MIRTAZAPINE TAB 15 MG TAB PO SCH (19:40)
[2022-11-26] MEDS: ATORVASTATIN 20 MG TAB PO SCH (19:41)
[2022-11-26] MEDS: HEPARIN SODIUM/DEXTROSE 25,000 UNITS/500 ML BAG IV SCH (20:28)
[2022-11-26 21:00] LABS: Partial Thromboplastin Ratio 0.8; Partial Thromboplastin Time 22.9 Seconds (21.0-31.0); Prothrombin Time 11.1 Seconds (9.0-12.0)
[2022-11-26 22:57] LABS: Agglutinated RBC 3+; Basophils # (auto) 0.05 K/uL (0.00-0.20); Basophils % (auto) 0.5 %; Eosinophils # (auto) 0.17 K/uL (0.00-0.50); Eosinophils % (auto) 1.8 %; Hematocrit (blood only) 28.2 % (37.0-47.0); Hemoglobin 10.5 g/dl (12.0-16.0); Immature Granulocytes # (auto) 0.17 K/uL (0.01-0.20); Immature Granulocytes % (auto) 1.8 %; Lymphocytes # (auto) 0.95 K/uL (1.20-3.40); Lymphocytes % (auto) 9.9 %; Mean Corpuscular Hemoglobin 35.8 pg (25.0-34.0); Mean Corpuscular Hgb Conc 37.2 g/dL (32.0-36.0); Mean Corpuscular Volume 96.2 fL (80.0-100.0); Mean Platelet Volume 10.6 fL (9.4-12.4); Monocytes # (auto) 0.86 K/uL (0.11-0.59); Platelet Count 318 K/uL (130-400); RDW Coefficient of Variation 14.5 % (11.5-14.5); RDW Standard Deviation 48.5 fL (36.4-46.3); Red Blood Count 2.93 M/uL (4.20-5.40)
[2022-11-27 05:18] LABS: BUN Creatinine Ratio 34.8 (10-20); Calcium 8.9 mg/dl (8.6-10.3); Est GFR (African American) 106.6 ml/min; Magnesium 1.8 mg/dl (1.7-2.4); Partial Thromboplastin Ratio 0.9; Partial Thromboplastin Time 25.5 Seconds (21.0-31.0); Phosphorus 3.3 mg/dl (2.5-4.9); Potassium 3.7 mmol/L (3.5-5.1)
[2022-11-27] MEDS ORDERED: HEPARIN SOD (PORCINE) 1000 UNIT/ML IV ONE (06:00)
[2022-11-27 06:15] LABS: Agglutinated RBC 3+; Hematocrit (blood only) 28.5 % (37.0-47.0); Mean Corpuscular Hemoglobin 29.5 pg (25.0-34.0); Mean Corpuscular Hgb Conc 31.6 g/dL (32.0-36.0); Mean Corpuscular Volume 93.4 fL (80.0-100.0); Mean Platelet Volume 10.4 fL (9.4-12.4); Platelet Count 355 K/uL (130-400); RDW Coefficient of Variation 13.7 % (11.5-14.5); RDW Standard Deviation 46.5 fL (36.4-46.3); Red Blood Count 3.05 M/uL (4.20-5.40); White Blood Count 11.45 K/ul (4.8-10.8)
[2022-11-27 06:36] LABS: Eosinophils # (auto) 0.25 K/uL (0.00-0.50); Eosinophils % (auto) 2.2 %; Immature Granulocytes % (auto) 2.6 %; Lymphocytes # (auto) 1.65 K/uL (1.20-3.40); Lymphocytes % (auto) 14.4 %; Monocytes % (auto) 7.9 %; Neutrophils # (auto) 8.35 K/uL (1.40-6.50); Neutrophils % (auto) 72.9 %
[2022-11-27] MEDS: CHLORHEXIDINE GLUCONATE 0.12% 480 ML MT SCH ×3 (08:11→19:52)
[2022-11-27] MEDS: risperiDONE 0.5 MG TABLET PO SCH ×2 (08:11→19:51)
[2022-11-27] MEDS: SACCHAROMYCES BOULARDII 250 MG CAP PO SCH (08:19)
[2022-11-27] MEDS: amLODIPine BESYLATE 5 MG TAB PO SCH (08:19)
[2022-11-27] MEDS: MEMANTINE HCL 5 MG TAB PO SCH (08:19)
[2022-11-27] MEDS: ESCITALOPRAM OXALATE 10 MG TAB PO SCH (08:19)
[2022-11-27] MEDS: SENNA 8.6 MG TAB PO SCH ×2 (08:19→19:51)
[2022-11-27] MEDS: OXYBUTYNIN CHLORIDE XL 5 MG TABCR PO SCH (08:19)
[2022-11-27] MEDS: METOPROLOL SUCC 50MG EXT REL TAB PO SCH (08:20)
[2022-11-27] MEDS: MAGNESIUM HYDROXIDE SUSP 30 ML UDC PO SCH (08:20)
[2022-11-27] MEDS: DOCUSATE SODIUM 100 MG CAP PO SCH ×2 (08:20→19:53)
[2022-11-27] MEDS: POT PHOSPHATE MONOBASIC W/ SOD TAB PO SCH ×4 (08:20→19:53)
[2022-11-27 13:39] LABS: Partial Thromboplastin Ratio 1.7
[2022-11-27 13:40] LABS: Partial Thromboplastin Time 48.4 Seconds (21.0-31.0)
--- NOTE | 2022-11-27 16:14 | Hospitalist Progress Note ---
Date of Service November 27, 2022 Assessment & Plan (1) Sepsis: (2) E coli bacteremia: (3) Abnormal finding on urinalysis: (4) Metabolic encephalopathy: (5) Hypertension: (6) Hyperlipidemia: (7) Transient atrial fibrillation: Plan Patient is a 82 yr female with PMHx significant for H/O Dementia, HTN, history of SAH, hyperlipidemia, IBS who presented from [facility] with generalized weakness and lethargy and was found to have sepsis with E. coli bacteremia. Pt medically stable for discharge in the AM. Sepsis with E. coli bacteremia likely due to UTI Blood cultures 11/16 with E. coli in 4 out of 4 bottles Repeat blood culture 11/18 negative UA abnormal, however urine culture with 3 types of organisms, high counts BioFire negative Treated with IV cefepime, transitioned to Rocephin for total of 14-day course of antibiotic. ID recommendations -recommending IV Rocephin treatment while hospitalized but can discharge on oral cephalosporin. Advising against PO Augmentin. 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 Patient was seen by cardiology who did not recommend anticoagulation given high risk than benefit. She has been on sinus rhythm for multiple days now on telemetry. Continue Toprol. Pt now with acute DVT on 11/26- appreciate cardiology reconsidering recs Mild Pre renal azotemia/Dehydration pt with increased lethargy occasionally and poor intake Received 2 bags d5 1/2ns x 2L Closely monitor labs Metabolic encephalopathy due to above. Improved per family. Delirium precautions Hypertension Continue amlodipine, Toprol chronic, stable Hyperlipidemia on statin chronic, stable Dementia mood disorder on Namenda, Risperdal, Lexapro. Delirium precautions Urinary incontinence on oxybutynin. Hold if worsening confusion Diet: HH, pureed DVT prophylaxis: previously on Lovenox, now heparin drip Disposition: SNF at [facility] (auth pending) with discharge to [place]. Patient is medically stable for transfer. Paperwork/extensive forms completed for discharge. Admission and Anticipated Discharge Date Admission Date: November 16, 2022 Subjective Pt seen in the AM, stated that she was tired. Denied acute concerns. Review of Systems Review of Systems: All systems reviewed & are unremarkable except as noted in Subjective Physical Exam Physical Exam: General: Sleeping Skin: No noted rashes or bruises Psych: could not be determined Neuro: Alert and oriented HEENT: NC/AT Chest: Nontender to palpation. CV: RRR Resp: no increased effort of breathing Abdomen: Soft, nontender, nondistended. Extremities: Improved Left ankle swelling and redness Results & Data Results & Data Vital Signs (Past 12 Hours) Vital Signs Temp Pulse Resp BP Pulse Ox O2 Del Method 11/27/22 08:18 36.2 C L 49 L 12 132/73 96 Room Air
[2022-11-27] MEDS: ACETAMINOPHEN 325 MG TAB PO PRN (17:04)
[2022-11-27] MEDS: cefTRIAXone SODIUM 2,000 MG in DEXTROSE 5 % MINI-B 50 ML IV SCH (19:50)
[2022-11-27] MEDS: MIRTAZAPINE TAB 15 MG TAB PO SCH (19:51)
[2022-11-27] MEDS: ATORVASTATIN 20 MG TAB PO SCH (19:51)
[2022-11-27] MEDS: HEPARIN SODIUM/DEXTROSE 25,000 UNITS/500 ML BAG IV SCH (19:56)
[2022-11-28] MEDS: HEPARIN SODIUM/DEXTROSE 25,000 UNITS/500 ML BAG IV SCH (04:41)
[2022-11-28] MEDS ORDERED: APIXABAN 5 MG TABLET PO SCH ×2 (07:45→09:00)
[2022-11-28] MEDS: SACCHAROMYCES BOULARDII 250 MG CAP PO SCH (08:28)
[2022-11-28] MEDS: DOCUSATE SODIUM 100 MG CAP PO SCH (08:28)
[2022-11-28] MEDS: MEMANTINE HCL 5 MG TAB PO SCH (08:28)
[2022-11-28] MEDS: POT PHOSPHATE MONOBASIC W/ SOD TAB PO SCH (08:28)
[2022-11-28] MEDS: SENNA 8.6 MG TAB PO SCH (08:29)
[2022-11-28] MEDS: risperiDONE 0.5 MG TABLET PO SCH (08:29)
[2022-11-28] MEDS: ESCITALOPRAM OXALATE 10 MG TAB PO SCH (08:29)
[2022-11-28] MEDS: OXYBUTYNIN CHLORIDE XL 5 MG TABCR PO SCH (08:29)
[2022-11-28] MEDS: METOPROLOL SUCC 50MG EXT REL TAB PO SCH (08:29)
[2022-11-28] MEDS: CHLORHEXIDINE GLUCONATE 0.12% 480 ML MT SCH (08:30)
[2022-11-28] MEDS: amLODIPine BESYLATE 5 MG TAB PO SCH (08:30)
[2022-11-28] MEDS: MAGNESIUM HYDROXIDE SUSP 30 ML UDC PO SCH (08:30)
--- NOTE | 2022-11-28 11:48 | Discharge Summary ---
Discharge Summary Date of Service November 28, 2022 Admission HPI Per Admitting Provider This is an 82yo F with a PMH of dementia, HTN, history of SAH, hyperlipidemia, IBS and other medical problems listed below who presents from [facility] with generalized weakness and lethargy. Daughter at bedside provides majority of history due to patient's baseline dementia. Daughter visited her on Tuesday and there had been concern for UTI but test hadn't resulted yet. Patient did eat dinner normally that night and seemed otherwise in normal state of health. Daughter was called this morning due to increased lethargy and was brought to ED for further evaluation. Daughter concerned about level of care provided as patient is always in a soiled brief when she visits. Endorses urinary incontinence at baseline but now also having increased diarrhea. Can ambulate independently at baseline. Denies any headache, cough, sore throat, CP, SOB, N/V, abdominal pain, dysuria or constipation. Per facility paperwork, patient was ordered a steroid pack, mucinex and duonebs this morning but they have not yet been started. Patient does not report any respiratory symptoms. Principal Dx & Hospital Course #1 = Principal Diagnosis (1) Sepsis: (2) E coli bacteremia: (3) Abnormal finding on urinalysis: (4) Metabolic encephalopathy: (5) Hypertension: (6) Hyperlipidemia: (7) Transient atrial fibrillation: Plan Patient is a 82 yr female with PMHx significant for H/O Dementia, HTN, history of SAH, hyperlipidemia, IBS who presented from [facility] with generalized weakness and lethargy and was found to have sepsis with E. coli bacteremia. Pt medically stable for discharge in the AM. Sepsis with E. coli bacteremia likely due to UTI Blood cultures 11/16 with E. coli in 4 out of 4 bottles Repeat blood culture 11/18 negative UA abnormal, however urine culture with 3 types of organisms, high counts BioFire negative Treated with IV cefepime, transitioned to Rocephin for total of 14-day course of antibiotic. ID recommendations -recommending IV Rocephin treatment while hospitalized but can discharge on oral cephalosporin. Advising against PO Augmentin. -continue abx until 11/30 Acute DVT On 11/26, pt noted to have a red, swollen, tender left ankle Doppler US ordered, confirmed presence of DVT in one of the peroneal veins Has been on Lovenox SQ since Nov 24 while hospitalized, previously on SCDs due to hx of SAH Started on heparin drip, consider DOAC Noted that pt also has Hx of A fib, and cardiology recommending against senior living anticoagulation Transient atrial fibrillation in setting of her acute medical condition with spontaneous conversion. Patient was seen by cardiology who did not recommend anticoagulation given high risk than benefit. She has been on sinus rhythm for multiple days now on telemetry. Continue Toprol. Pt now with acute DVT on 11/26- appreciate cardiology reconsidering recs Mild Pre renal azotemia/Dehydration pt with increased lethargy occasionally and poor intake Received 2 bags d5 1/2ns x 2L Closely monitor labs Metabolic encephalopathy due to above. Improved per family. Delirium precautions Hypertension Continue amlodipine, Toprol chronic, stable Hyperlipidemia on statin chronic, stable Dementia mood disorder on Namenda, Risperdal, Lexapro. Delirium precautions Urinary incontinence on oxybutynin. Hold if worsening confusion Diet: HH, pureed DVT prophylaxis: previously on Lovenox, now heparin drip Disposition: SNF at [facility] (auth pending) with discharge to [place]. Patient is medically stable for transfer. Paperwork/extensive forms completed for discharge. Updated Medication List Medication Instructions Recorded Confirmed Type amlodipine 5 mg tablet 5 mg PO QAM 10/28/17 11/16/22 History atorvastatin 20 mg tablet 20 mg PO HS 10/28/17 11/16/22 History metoprolol succinate 100 mg 100 mg PO QAM 10/28/17 11/16/22 History tablet,extended release 24 hr escitalopram oxalate 10 mg tablet 10 mg PO DAILY 06/16/22 11/16/22 History acetaminophen 325 mg tablet 975 mg PO TID PRN Pain 11/16/22 11/16/22 History (Tylenol) bisacodyl 10 mg rectal suppository 10 mg IA DAILY PRN Constipation 11/16/22 11/16/22 History (Dulcolax (bisacodyl)) chlorhexidine gluconate 0.12 % 15 ml buccal TID 11/16/22 11/16/22 History mouthwash docusate sodium 100 mg tablet 100 mg PO BID constipation 11/16/22 11/16/22 History magnesium hydroxide 400 mg/5 mL 1,200 mg PO DAILY constipation 11/16/22 11/16/22 History oral suspension (Milk of Magnesia) melatonin 3 mg tablet 3 mg PO HS 11/16/22 11/16/22 History memantine 5 mg tablet 5 mg PO DAILY 11/16/22 11/16/22 History mirtazapine 15 mg tablet 7.5 mg PO HS 11/16/22 11/16/22 History risperidone 0.5 mg tablet 0.5 mg PO BID 11/16/22 11/16/22 History sennosides 8.6 mg tablet (senna) 17.2 mg PO BID 11/16/22 11/16/22 History sodium phosphates 19 gram-7 118 ml IA DAILY PRN Constipation 11/16/22 11/16/22 History gram/118 mL enema (Fleet Enema) solifenacin 5 mg tablet 5 mg PO DAILY 11/16/22 11/16/22 History apixaban 5 mg tablet (Eliquis) See Rx Instructions .Route 11/28/22 Rx .COMPLEX #68 tabs cefdinir 300 mg capsule 300 mg PO BID #4 caps 11/28/22 Rx Hospital Stay Data Consultations 11/16/22 12:53 ED Decision to Admit Stat 11/18/22 08:00 Consult Cardiology Routine 11/22/22 06:37 Consult Infectious Diseases Routine Diagnostic Imagining Performed 11/18/22 15:49 CT Abd and Pelvis [CT abd pelvis wo con] Routine 11/26/22 13:31 US venous doppler LE LT Urgent Pending Results Patient Have Any Pending Studies at Discharge: No Discharge Instructions Given to Patient (Per Discharging Provider) Patient is a 82 yr female with PMHx significant for H/O Dementia, HTN, history of SAH, hyperlipidemia, IBS who presented from [facility] with generalized weakness and lethargy and was found to have sepsis with E. coli bacteremia. Sepsis with E. coli bacteremia Likely due to UTI Blood cultures 11/16 with E. coli in 4 out of 4 bottles Repeat blood culture 11/18 negative, no growth BioFire negative Treated with IV cefepime, transitioned to IV Rocephin and PO Cefdinir for total of 14-day course of antibiotics ID recommendations -recommending IV Rocephin treatment while hospitalized but can discharge on oral cephalosporin. Advising against PO Augmentin. -continue abx until 11/30 Pt discharged with two more days of PO cefdinir 300mg BID Acute DVT On 11/26, pt noted to have a red, swollen, tender left ankle Doppler US ordered, confirmed presence of DVT in one of the peroneal veins Has been on Lovenox SQ since Nov 24 while hospitalized, previously on SCDs due to hx of SAH Started on heparin drip, and received one dose of Eliquis 10mg. Discharged with 13 more doses of Eliquis 10mg to be followed by 5mg BID. 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 However, started on anticoagulation due to DVT. Further evaluation by pcp for continued need after discharge recommended. Transient atrial fibrillation In setting of her acute medical condition with spontaneous conversion. Patient was seen by cardiology who did not recommend anticoagulation given high risk than benefit. She has been on sinus rhythm for multiple days now on telemetry. Continue Toprol. Pt now with acute DVT on 11/26, anticoagulation started as noted above. Mild Pre renal azotemia/Dehydration Pt with increased lethargy occasionally and poor intake Received 2 bags d5 1/2ns x 2L Closely monitor labs Metabolic encephalopathy Due to above. Improved per family. Delirium precautions Hypertension Continue amlodipine, Toprol chronic, stable Hyperlipidemia On statin Chronic, stable Dementia mood disorder On Namenda, Risperdal, Lexapro. Delirium precautions Urinary incontinence On oxybutynin. Hold if worsening confusion
[2022-11-28 12:22] LABS: BUN Creatinine Ratio 33.3 (10-20); Calcium 9.5 mg/dl (8.6-10.3); Est GFR (African American) 105.1 ml/min; Est GFR (Non-African American) 90.7 ml/min; Magnesium 2.2 mg/dl (1.7-2.4); Phosphorus 3.5 mg/dl (2.5-4.9); Potassium 4.1 mmol/L (3.5-5.1)
[2022-11-28 12:28] LABS: Partial Thromboplastin Ratio 0.9; Partial Thromboplastin Time 26.3 Seconds (21.0-31.0)
[2022-11-28 13:10] LABS: Hematocrit (blood only) 27.3 % (37.0-47.0); Hemoglobin 10.3 g/dl (12.0-16.0); Mean Corpuscular Hemoglobin 36.4 pg (25.0-34.0); Mean Corpuscular Hgb Conc 37.7 g/dL (32.0-36.0); Mean Corpuscular Volume 96.5 fL (80.0-100.0); Mean Platelet Volume 9.3 fL (9.4-12.4); Platelet Count 444 K/uL (130-400); RDW Coefficient of Variation 13.8 % (11.5-14.5); Red Blood Count 2.83 M/uL (4.20-5.40); White Blood Count 6.45 K/ul (4.8-10.8)
[2022-11-28 13:11] LABS: Agglutinated RBC 3+; Basophils # (auto) 0.03 K/uL (0.00-0.20); Basophils % (auto) 0.5 %; Eosinophils # (auto) 0.16 K/uL (0.00-0.50); Eosinophils % (auto) 2.5 %; Immature Granulocytes # (auto) 0.12 K/uL (0.01-0.20); Immature Granulocytes % (auto) 1.9 %; Lymphocytes # (auto) 0.79 K/uL (1.20-3.40); Lymphocytes % (auto) 12.2 %; Monocytes # (auto) 0.75 K/uL (0.11-0.59); Monocytes % (auto) 11.6 %; Neutrophils % (auto) 71.3 %
== END 2022-11-28 12:14 | DRG 871 ==
LOC: ED 10:16 → EDINP 13:10 → SUATTDRO 13:10 → 2S 15:43 → 3N 11-24 00:01

== ENCOUNTER 2024-09-04 00:06 | Inpatient (IN) ==
--- NOTE | 2024-09-04 00:23 | Emergency Department Note ---
Impression & Plan Fall, Dementia, Closed fracture of right hip ED Provider Note Provider: Shiva Horta MD CHIEF COMPLAINT: Fall HISTORY OF PRESENT ILLNESS: Patient is a 84-year-old female past medical history including A-fib on Eliquis, NSTEMI, GERD, hypertension, lumbar stenosis, and dementia presenting here today via ambulance from [facility]. Patient evidently with poor memory due to her dementia and has frequent falls. Witnessed fall this evening by staff she went to stand and walk and fell to the ground on her buttock. No loss of consciousness or significant head trauma reported. She seemed maybe to grimace or have a little bit of right hip discomfort to the center here for further evaluation. No other fevers or loss of consciousness or new change in mental status reported. Patient herself not a good historian. Denies significant headache, neck pain, shortness of breath, or abdominal pain to me. When asked regarding the hips and extremities changes subjective does not really answer. Daughter later arrives and reports the patient fell around 4 PM. Had dinner but when he went to transfer later at the facility had increased pain so came here for evaluation. Evidently has had issues with anesthesia in the past. PAST MEDICAL HISTORY: As noted above MEDICATIONS: Reviewed medication list from facility includes Eliquis SOCIAL HISTORY: Resides at [facility] PHYSICAL EXAM: GENERAL: alert in no acute distress on stretcher but a poor historian to today's events Head: normocephalic and atraumatic EYES: No injection, discharge or icterus. PERRL, EOMI. NECK: Trachea midline. Supple without midline cervical tenderness ENT: Mucous membranes pink and moist. LUNGS: Airway patent. No retractions. Breath sounds clear with good air entry bilaterally. HEART: Regular rate and rhythm. No chest wall tenderness or clavicle tenderness ABDOMEN: Soft and non-tender, without guarding or rebound. Stable pelvis BACK: No midline tenderness, no SI joint tenderness. No bilateral flank tenderness. SKIN: Acyanotic, warm, dry, without rashes EXTREMITIES: Without swelling, tenderness or deformity although a little bit of soreness when passive range of motion of the bilateral hips is attempted. She seems to resist a little bit. Soft compartments of all 4 extremities. NEUROLOGICAL: No focal deficits moving all extremities. No aphasia. No facial droop or slurred speech.Sensation to gross touch normal. Ambulatory. EK bpm normal sinus rhythm. No PVC or PAC. No acute ST segment elevation or depression QTc 484. GCS 14 baseline dementia Patient's imaging and labs reviewed. Differential includes Fracture, dislocation, contusion, intra-abdominal, pneumothorax, intrathoracic, intracranial, neurologic, compartment syndrome, rhabdomyolysis, as well as other pathologies. IMPRESSION/MEDICAL DECISION MAKING: Patient in no significant distress upon arrival. ATLS primary and secondary survey completed. Reportedly at baseline with her dementia and memory issues. Is on Eliquis. No obvious significant trauma noted on exam. Somewhat limited history again due to her poor memory, but no reported LOC or significant head trauma. Given however that she is not a great historian, will obtain CT adams scan including lumbar spine and x-rays of the chest and right hip/pelvis. No significant tenderness elsewise noted in the extremities or evidence compartment syndrome. Was not on the ground significant. Time and doubt rhabdomyolysis. Afebrile here. No other change in mental status or syncope reported no believe any blood work or other testing at this time. Blood work here without significant electrolyte abnormality or renal dysfunction. Negative urinalysis. CT of the head and cervical spine without acute traumatic injury noted. CT of the chest abdomen pelvis without significant injury beyond a right intertrochanteric hip fracture. Did take several hours for results of CT imaging. C-spine cleared at 0208. X-ray of the pelvis and right hip does show what appears to be a greater trochanter fracture. Confirmed on CT. Updated patient and daughter at bedside. Did reach out to orthopedics regarding this injury and discussed with the PA on-call. Reached out to the hospitalist team. Advised daughter's concerns regarding delirium and reorientation and try to avoid medications. Given some IV Tylenol here although not significant discomfort. [place] catheter has been placed. With the use of anticoagulation advised daughter likely will not have surgery today. DIAGNOSIS: Fall, dementia, right hip fracture DISPOSITION: Hospitalist will evaluate Patient's daughter updated at bedside. Past Med/Surg History Problem List Leukocytosis Closed fracture of right hip (Acute) Dementia (Acute) Fall (Acute) Acute pyelonephritis E coli bacteremia Dyslipidemia, goal LDL below 100 History of subarachnoid hemorrhage Transient atrial fibrillation Atrial fibrillation with RVR Hyperlipidemia Metabolic encephalopathy Abnormal finding on urinalysis Sepsis (Acute) Elevated procalcitonin (Acute) Non-ST elevation PA (NSTEMI) (Acute) Lumbar stenosis with neurogenic claudication (Acute 02/13/14) Hypertension (Chronic) Arthritis (Chronic) GERD (gastroesophageal reflux disease) (Chronic) Medical History Osteoarthritis Spinal stenosis Poor historian Asthma as a child Hypertension Surgical History Hx of cataract surgery RIGHT History of hysterectomy History of tonsillectomy History of bilateral breast reduction surgery History of back surgery hardware present Family History Other Dementia Social History Smoking Status: Never smoker Second Hand Exposure: Yes; Do You Dip or Chew Tobacco: No; Hx Alcohol Use: No Hx Substance Use: No Preferred Language: Frisian Communication Ability: Impaired Vendor Management Consultant Required: No Beliefs That Will Affect Care: None Current Living Situation: [facility] Current Living Situation Comment: [facility] Feels Safe at Home: Yes Assistive Devices: None Allergies Allergies Allergy/AdvReac Type Severity Reaction Status Date / Time cephalexin Allergy Intermediate HIVES Verified 09/04/24 00:32 lorazepam [From Ativan] Allergy Unknown Unknown Unverified 09/04/24 00:32 zolpidem [From Ambien] AdvReac Severe "Gets Unverified 09/04/24 00:32 Violent" Home Meds Home Medications Medication Instructions Recorded Confirmed amlodipine 5 mg tablet 5 mg PO DAILY 10/28/17 09/04/24 atorvastatin 20 mg tablet 20 mg PO HS 10/28/17 09/04/24 metoprolol succinate 100 mg 100 mg PO QAM 10/28/17 09/04/24 tablet,extended release 24 hr escitalopram oxalate 10 mg tablet 10 mg PO DAILY 06/16/22 09/04/24 acetaminophen 325 mg tablet 650 mg PO Q4 PRN Mild Pain. 11/16/22 09/04/24 (Tylenol) docusate sodium 100 mg tablet 100 mg PO BID constipation 11/16/22 09/04/24 solifenacin 5 mg tablet 5 mg PO DAILY 11/16/22 09/04/24 apixaban 5 mg tablet (Eliquis) 5 mg PO BID 09/04/24 09/04/24 ferrous sulfate 325 mg (65 mg 325 mg PO DAILY 09/04/24 09/04/24 iron) tablet memantine 5 mg tablet 5 mg PO BID 09/04/24 09/04/24 menthol 0.44 %-zinc oxide 20.6 % 1 applic topical Q8 PRN REDNESS TO 09/04/24 09/04/24 topical ointment (Calmoseptine) BUTTOCKS metformin 500 mg tablet 500 mg PO BID 09/04/24 09/04/24 mirtazapine 7.5 mg tablet 7.5 mg PO HS 09/04/24 09/04/24 ramelteon 8 mg tablet 8 mg PO HS 09/04/24 09/04/24 risperidone 0.5 mg tablet 0.5 mg PO HS 09/04/24 09/04/24 Results & Data (ED) Vital Signs Vital Signs - 24 hr 09/04/24 00:01 09/04/24 00:06 09/04/24 00:23 Temperature 36.8 C 36.7 C Temperature Source Oral Oral Pulse Rate 91 H 91 H Pulse Rate [Apical] 90 Pulse Rhythm [Apical] Pulse Strength Normal Pulse Strength [Apical] Respiratory Rate 22 19 Respiratory Effort / Characteristics Non-Labored Spontaneous Non-Labored Spontaneous Respiratory Depth Normal Normal Respiratory Pattern Regular Regular Blood Pressure 168/87 H Blood Pressure [Right Arm] 152/68 H Blood Pressure Mean 114 Blood Pressure Mean [Right Arm] 96 Blood Pressure Position Lying Blood Pressure Position [Right Arm] Lying Pulse Oximetry 95 96 Oxygen Delivery Method Room Air Room Air Sepsis Recent Fever Within 48 Hours No Sepsis New/Unexplained Change in Mental Status No Sepsis Action Taken by Nursing No Action Required 09/04/24 01:06 09/04/24 02:00 09/04/24 03:00 Temperature 36.6 C 36.9 C 36.8 C Temperature Source Oral Oral Oral Pulse Rate Pulse Rate [Apical] 90 88 88 Pulse Rhythm [Apical] Regular Regular Pulse Strength Pulse Strength [Apical] Normal Respiratory Rate 16 16 18 Respiratory Effort / Characteristics Non-Labored Spontaneous Non-Labored Spontaneous Non-Labored Spontaneous Respiratory Depth Normal Normal Normal Respiratory Pattern Regular Regular Regular Blood Pressure Blood Pressure [Right Arm] 148/78 H 136/78 148/77 H Blood Pressure Mean Blood Pressure Mean [Right Arm] 101 97 100 Blood Pressure Position Blood Pressure Position [Right Arm] Lying Lying Lying Pulse Oximetry 98 98 95 Oxygen Delivery Method Room Air Room Air Room Air Sepsis Recent Fever Within 48 Hours Sepsis New/Unexplained Change in Mental Status Sepsis Action Taken by Nursing Laboratory Data 09/04/24 00:42 09/04/24 00:42 Lab Results 09/04/24 09/04/24 Range/Units 00:42 01:40 WBC 13.50 H (4.8-10.8) K/ul RBC 4.25 (4.20-5.40) M/uL Hgb 13.5 (12.0-16.0) g/dl Hct 40.5 (37.0-47.0) % MCV 95.3 (80.0-100.0) fL MCH 31.8 (25.0-34.0) pg MCHC 33.3 (32.0-36.0) g/dL RDW Std Deviation 46.4 H (36.4-46.3) fL RDW Coeff of David 13.7 (11.5-14.5) % Plt Count 305 (130-400) K/uL MPV 11.1 (9.4-12.4) fL Immature Gran % (Auto) 0.7 % Neut % (Auto) 83.4 % Lymph % (Auto) 8.5 % [place] % (Auto) 7.4 % Eos % (Auto) 0.0 % Baso % (Auto) 0.0 % Neut # (Auto) 11.25 H (1.40-6.50) K/uL Lymph # (Auto) 1.15 L (1.20-3.40) K/uL [place] # (Auto) 1.00 H (0.11-0.59) K/uL Eos # (Auto) 0.00 (0.00-0.50) K/uL Baso # (Auto) 0.00 (0.00-0.20) K/uL Immature Gran # (Auto) 0.10 (0.01-0.20) K/uL RBC Agglutinates 3+ PT 11.2 (9.0-12.0) Seconds INR 1.0 (0.9-1.1) Sodium 139 (136-145) mmol/L Potassium 4.6 (3.5-5.1) mmol/L Chloride 103 (98-107) mmol/L Carbon Dioxide 27 (21-32) mmol/L Anion Gap 9 (3-11) BUN 22 (6-23) mg/dl Creatinine 0.75 (0.6-1.2) mg/dl Est Cr Clr Drug Dosing 51.1 ml/min eGFR 77.97 BUN/Creatinine Ratio 29.3 H (10-20) Glucose 175 H (70-99(Fasting)) mg/dl Calcium 9.7 (8.6-10.3) mg/dl Total Bilirubin 0.9 (0.2-1.0) mg/dl AST 28 (13-39) U/L ALT 25 (7-52) U/L Alkaline Phosphatase 120 H (34-104) U/L Total Protein 7.4 (6.0-8.3) gm/dl Albumin 4.4 (3.4-5.0) gm/dl Globulin 3.0 (2.5-4.0) gm/dl Albumin/Globulin Ratio 1.5 (0.9-2) Urine Color Yellow Urine Appearance Clear (Clear) Urine pH 6.5 (4.5-7.5) Ur Specific [place] 1.020 (1.000-1.030) Urine Protein Negative (Negative) Urine Glucose (UA) Negative (Negative) Urine Ketones 1+ H (Negative) Urine Blood Negative (Negative) Urine Nitrite Negative (Negative) Urine Bilirubin Negative (Negative) Urine Urobilinogen Positive H (Negative) Ur Leukocyte Esterase Negative (Negative) Urine Comment Administered Medications Discontinued Medications Acetaminophen (Ofirmev) 1,000 mg in 100 mls @ 400 mls/hr IV NOW STA Stop: 09/04/24 02:50 Last Admin: 09/04/24 03:37 Dose: 400 mls/hr Documented By: [facility] Imaging Data Radiologist's Impression: Abdomen/Pelvis CT 09/04/24 00:18 EXAM: CT abd pelvis wo con CLINICAL HISTORY: fall, R hip pain TECHNIQUE: Contiguous axial images were obtained from the level of the diaphragm to the pubic symphysis without intravenous or oral contrast. Coronal and sagittal reconstructions were likewise performed and indicated to increase the sensitivity for detecting clinically relevant pathology. CT scan was performed according to ALARA (as low as reasonable achievable). COMPARISON: 15:22:09 CERTIFIED BENCH JEWELER TECHNICIAN FINDINGS: Mild right pleural effusion with basal subsegmental collapse of right lower lobes are seen. Minimal pleural thickening on left side. Sliding hiatus hernia noted. Evaluation of the abdominal and pelvic visceral organs is limited without intravenous contrast. The unenhanced liver, spleen, pancreas, and adrenal glands are grossly unremarkable. The gallbladder is distended and shows multiple tiny calculi without cholecystitis.. The kidneys are normal in size and attenuation without obvious calcification. There is no hydronephrosis or perinephric stranding. The ureters are normal in caliber. The urinary bladder is normal in contour. Pelvic viscera are grossly unremarkable. No adenopathy or fluid collections are seen. No evidence of focal or diffuse bowel wall thickening or evidence of bowel obstruction is seen. The appendix is visualized in the right lower quadrant and appears within normal limits. The aorta is normal in caliber. No aggressive appearing osseous lesions are identified. Diffuse atherosclerotic calcification is noted involving aorta iliac arteries.-stable. Uncomplicated descending and sigmoid colonic diverticulosis. Degenerative changes involving visualized spine. Multiple fixations screws in the spine without loosening/complication-stable. Fat containing umbilical hernia. Comminuted displaced fracture is noted involving intertrochanteric region of right femur. IMPRESSION: 1. Uncomplicated cholelithiasis.-stable. 2. Uncomplicated colonic diverticulosis.-stable. 3. Fat containing umbilical hernia.-stable. 4. Mild right pleural effusion with basal subsegmental collapse of right lower lobes are seen. ( resolution of pleural effusion on left side nad reduction on right side ). 5. Comminuted displaced fracture is noted involving intertrochanteric region of right femur.-new finding. Electronically signed by Byron Vega 09-04-2024 02:[address] 09/04/24 00:18 EXAM: CT cervical spine wo con CLINICAL HISTORY: fall TECHNIQUE: Computed tomography of the cervical spine performed without intravenous contrast. Contiguous axial images were obtained from the skull base to T2, with sagittal and coronal reformatted images reconstructed from the axial data. CT scan was performed according to ALARA (as low as reasonable achievable). COMPARISON: 08/28/2022 09:39:52 CERTIFIED BENCH JEWELER TECHNICIAN FINDINGS: The normal cervical lordotic curvature is straightened. Cervical vertebral bodies are normal in height and alignment, with no evidence of fracture or subluxation. Lateral masses of C1 are symmetrical, and the dens is intact. Ossification of tectorial membrane. Prevertebral soft tissues are not widened. The remaining suprahyoid and infrahyoid soft tissues in the neck are unremarkable. C2-C3: No disc bulge, mass effect on the cord or neuroforaminal narrowing. C3-C4: No disc bulge, mass effect on the cord or neuroforaminal narrowing. Mild anterolisthesis of C3 over C4. C4-C5: No disc bulge, mass effect on the cord or neuroforaminal narrowing. C5-C6: No disc bulge, mass effect on the cord or neuroforaminal narrowing. C6-C7: Irregular reduction of intervertebral disc space with intradiscal vaccum phenomena and marginal osteophytes. C7-T1: No disc bulge, mass effect on the cord or neuroforaminal narrowing. Thyroid gland appears unremarkable. Multilevel uncovertebral joint arthrosis. IMPRESSION: 1. No acute fracture or subluxation in the cervical spine. 2. Cervical spondylosis. 3. Straightening of cervical lordosis likely due to muscle spasm. Similar findings on previous study. Electronically signed by Byron Vega 09-04-2024 01:[address] 09/04/24 00:18 EXAM: CT chest diagnostic wo con CLINICAL HISTORY: fall TECHNIQUE: Contiguous axial images were obtained from the neck base through the upper abdomen without contrast. In addition, sagittal and coronal reconstructions were performed to potentially increase the sensitivity for the detection of disease. CT scan was performed according to ALARA (as low as reasonable achievable). COMPARISON: FINDINGS: There are minimal bilateral pleural effusions with passive atelectasis of adjacent lower lobe parenchyma. Rest of the lungs are clear, with no focal areas of consolidation. No pulmonary nodules are seen. The central airways are patent. No pneumothorax is seen. Evaluation of the mediastinum and phil is limited due to the lack of intravenous contrast. No axillary or mediastinal adenopathy is identified. The thyroid is unremarkable. The heart, aorta, and pulmonary arteries are of normal size and configuration. There are coronary artery and aortic atherosclerotic calcifications. No pericardial effusion is identified. Imaged portions of the upper abdomen are unremarkable. No aggressive appearing osseous lesions are identified. Spondylodegenerative changes in visualised spine Interval new post spinal fixation of T12 to Lumbar spine IMPRESSION: There are minimal bilateral pleural effusions with passive atelectasis of adjacent lower lobe parenchyma. new finding Spondylodegenerative changes in visualised spine Interval new post spinal fixation of T12 to Lumbar spine Electronically signed by Byron Vega 09-04-2024 02:03 AM Chest X-Ray 09/04/24 00:18 EXAM: XR chest 1V portable CLINICAL HISTORY: Fall TECHNIQUE: An X-ray image of the chest is obtained in AP projection. COMPARISON: X-ray dated 12/13/2023 FINDINGS: Pulmonary Parenchyma: The patient is rotated No evidence of consolidation, collapse. No pulmonary nodules are identified. No evidence of pleural effusion. Heart and Mediastinum: Heart size is enlarged; however, this is an AP projection/inadequate inspiration. Bony Thorax: Bony thorax appears intact without fractures or deformities. Degenerative changes in the visualized spine with mild scoliotic tilt Soft Tissues: Soft tissues overlying the chest wall are unremarkable. IMPRESSION: No acute pulmonary pathology could be detected. Electronically signed by Josef Echavarria 09-04-2024 02:[address] 09/04/24 00:18 EXAM: CT head/brain wo con CLINICAL HISTORY: fall, eliquis, dementia TECHNIQUE: An axial non-contrast CT scan of the brain was performed from the skull base to the high parietal region. One of the following dose reduction techniques was utilized for this exam: Automated exposure control, adjustment of the mA and/or kV according to patient size, and use of iterative reconstruction. (CTDI: 36.31 mGy, DLP: 3015.77 mGy*cm) COMPARISON: 08/28/2022, CT head/brain FINDINGS: Brain Parenchyma: Moderate diffuse hypodensity is identified in bilateral periventricular deep white matter. Few small low-attenuation areas are identified in the bilateral basal ganglia and periventricular region. Normal attenuation of the cerebellum and brainstem. No evidence of acute infarct, hemorrhage, or mass effect. No abnormal areas of hyperattenuation. Ventricular System: Mild dilatation of the ventricular system is seen No evidence of hydrocephalus. Subarachnoid Spaces: Mild to moderate widening of sulci is identified. No evidence of subarachnoid hemorrhage or extra-axial fluid collections. Cerebellum and Brainstem: No masses, lesions, or areas of abnormal density. Orbits: Normal appearance of the globes, optic nerves, and extraocular muscles. No evidence of orbital masses or abnormal density. Sinuses: Mild mucosal thickening is seen in the right ethmoid sinus The rest of the paranasal sinuses appear unremarkable. A minimal S-shaped deviation of the nasal septum is identified Mastoid Air Cells: Clear mastoid air cells. No evidence of mastoiditis. Skull: Normal skull morphology. Hyperostosis frontalis interna is seen IMPRESSION: 1. No traumatic brain or bone injury. 2. No evidence of intracranial hemorrhage, gross territorial infarction, or mass effect. 3. Redemonstration of age-appropriate volume loss in brain parenchyma and bilateral periventricular deep white matter ischemic changes with no significant interval change. 4. Redemonstration of a few low-attenuation areas in bilateral basal ganglia and periventricular region, likely chronic lacunar infarcts/microvascular ischemic changes, with no gross interval change seen. 5. Interval development of right ethmoid sinusitis. Electronically signed by Josef Echavarria 09-04-2024 02:26 AM Hip/Pelvis X-Ray 09/04/24 00:18 EXAM: XR hip RT 2V w pelvis CLINICAL HISTORY: Fall TECHNIQUE: X-ray images of the right hip joints in AP and lateral view with pelvis were obtained in anteroposterior (AP) projection. COMPARISON: CT dated 11/18/2022, 01/25/2024 CTA. FINDINGS: Hip Joints: A lucent area is seen in the greater trochanter of the right femur, concerning for a nondisplaced fracture, with a bony fragment along the superior aspect(new). A small bony fragment is seen along the lateral aspect of the right greater trochanter, representing calcific tendinosis(unchanged). Degenerative changes in both hip joints with osteophyte formation. Reduced bone density. Acetabular structures appear normal and intact. Femoral heads are normal and centered within the acetabulum. Pelvic Bones: Pelvic bones, including the iliac wings, ischium, pubis, and sacrum, are normal and intact. No evidence of dislocations, or significant osseous lesions. Osteophytes along the left superior iliac spine, unchanged. Symphysis Pubis: Symphysis pubis is normal and intact. No evidence of separation or widening. Soft Tissues: Visualized soft tissues are normal and unremarkable. No soft tissue swelling or masses. Pelvic phleboliths are seen. Additional: Small linear metallic densities are seen projected over the spine. A metallic lumbosacral spinal fixator is seen with screws. IMPRESSION: 1. A lucent area is seen in the greater trochanter of the right femur, concerning for a nondisplaced fracture, with a bony fragment along the superior aspect (New). Further evaluation with CT should be considered if clinically indicated. 2. A small bony fragment is seen along the lateral aspect of the right greater trochanter, representing calcific tendinosis (Unchanged). 3. Degenerative changes in the hip joints (Increased). DISCLAIMER:A subtle bone abnormality or fracture may not be readily apparent on x-rays; thus, clinical correlation and further imaging, including follow-up CT, MRI, or follow-up x-rays, are advised as needed. Electronically signed by Josef Echavarria 09-04-2024 01:[address] 09/04/24 00:18 EXAM: CT lumbar spine wo con CLINICAL HISTORY: fall, eliquis TECHNIQUE: Multiple contiguous axial images were obtained through the lumbar spine without IV contrast. Sagittal and coronal reformatted images were obtained from the axial data. CT scan was performed according to ALARA (as low as reasonable achievable). COMPARISON: None. FINDINGS: Loss of lumbar lordosis - suggest possibility of muscle spasm/positional. Degenerative changes involving lumbar spine in the form of multilevel marginal osteophytes, disc space reduction and facetal arthrosis. Post laminectomy status is noted through L2-L5 level. Interlocking fixation is done with orthopedic metallic hardware are seen in situ without obvious loosening. Fusion of multiple vertebra including facetal joints- ankylosing changes. Lumbar vertebral bodies are maintained in height and alignment. No vertebral estructive changes are seen. Posterior disc osteophyte complex is noted through L1-L2 to L5-S1 level. Paravertebral soft tissues are unremarkable. IMPRESSION: 1. Lumbar spondylosis changes. 2. Orthopedic metallic hardware are seen in situ without obvious loosening. 3. No obvious acute trauma related abnormality seen. Electronically signed by Byron Vega 09-04-2024 02:[address] 09/04/24 00:41 EXAM: CT hip RT wo con CLINICAL HISTORY: fall, pain TECHNIQUE: Contiguous axial CT images of right hip were obtained without intravenous contrast. Coronal and sagittal reconstructions were likewise performed and indicated to increase the sensitivity for detecting clinically relevant pathology. CT scan was performed according to ALARA (as low as reasonable achievable). COMPARISON: None. FINDINGS: Comminuted displaced fracture is noted involving intertrochanteric region of right femur. Fixation screw involving bilateral iliac bone and sacrum are seen in situ without obvious loosening. No destructive osseous lesion. The visualized muscles and tendons appear grossly unremarkable. No cortical destruction to suggest osteomyelitis. No abscess formation. No significant joint effusion. There are no soft tissue masses. Normal subcutaneous adipose space. IMPRESSION: 1. Comminuted displaced fracture is noted involving intertrochanteric region of right femur. Electronically signed by Byron Vega 09-04-2024 02:13 AM Discharge Plan Visit Data Chief Complaint: Fall Stated Complaint: FALL ED Provider: Shiva Horta Discharge Problem: Fall, Dementia, Closed fracture of right hip Patient Disposition: Being Evaluated by Hospitalist Condition: Fair Forms Stand Alone Forms: My [facility] Prescriptions Prescriptions: No Action atorvastatin 20 mg Tablet 20 mg PO HS metoprolol succinate 100 mg Tablet Extended Release 24 Hr 100 mg PO QAM amlodipine 5 mg Tablet 5 mg PO DAILY acetaminophen [Tylenol] 325 mg Tablet 650 mg PO Q4 PRN (Reason: Mild Pain.) docusate sodium 100 mg Tablet 100 mg PO BID solifenacin 5 mg tablet 5 mg PO DAILY escitalopram oxalate 10 mg Tablet 10 mg PO DAILY Eliquis 5 mg tablet 5 mg PO BID ferrous sulfate 325 mg (65 mg iron) Tablet 325 mg PO DAILY metformin 500 mg tablet 500 mg PO BID memantine 5 mg tablet 5 mg PO BID risperidone 0.5 mg tablet 0.5 mg PO HS mirtazapine 7.5 mg tablet 7.5 mg PO HS ramelteon 8 mg tablet 8 mg PO HS menthol-zinc oxide [Calmoseptine] 0.44-20.6 % Ointment 1 applic TOPICAL Q8 PRN (Reason: REDNESS TO BUTTOCKS) Referrals Referrals: Jolly Nguyen [Non-Staff] - Discharge Problem: Fall Qualifiers: Encounter type: initial encounter Qualified Code(s): W19.XXXA - Unspecified fall, initial encounter Dementia Qualifiers: Dementia type: unspecified type Closed fracture of right hip Qualifiers: Encounter type: initial encounter Qualified Code(s): S72.001A - Fracture of unspecified part of neck of right femur, initial encounter for closed fracture
--- NOTE | 2024-09-04 01:33 | XRay Report ---
EXAM: XR hip RT 2V w pelvis CLINICAL HISTORY: Fall TECHNIQUE: X-ray images of the right hip joints in AP and lateral view with pelvis were obtained in anteroposterior (AP) projection. COMPARISON: CT dated 11/18/2022, 01/25/2024 CTA. FINDINGS: Hip Joints: A lucent area is seen in the greater trochanter of the right femur, concerning for a nondisplaced fracture, with a bony fragment along the superior aspect(new). A small bony fragment is seen along the lateral aspect of the right greater trochanter, representing calcific tendinosis(unchanged). Degenerative changes in both hip joints with osteophyte formation. Reduced bone density. Acetabular structures appear normal and intact. Femoral heads are normal and centered within the acetabulum. Pelvic Bones: Pelvic bones, including the iliac wings, ischium, pubis, and sacrum, are normal and intact. No evidence of dislocations, or significant osseous lesions. Osteophytes along the left superior iliac spine, unchanged. Symphysis Pubis: Symphysis pubis is normal and intact. No evidence of separation or widening. Soft Tissues: Visualized soft tissues are normal and unremarkable. No soft tissue swelling or masses. Pelvic phleboliths are seen. Additional: Small linear metallic densities are seen projected over the spine. A metallic lumbosacral spinal fixator is seen with screws. IMPRESSION: 1. A lucent area is seen in the greater trochanter of the right femur, concerning for a nondisplaced fracture, with a bony fragment along the superior aspect (New). Further evaluation with CT should be considered if clinically indicated. 2. A small bony fragment is seen along the lateral aspect of the right greater trochanter, representing calcific tendinosis (Unchanged). 3. Degenerative changes in the hip joints (Increased). DISCLAIMER:A subtle bone abnormality or fracture may not be readily apparent on x-rays; thus, clinical correlation and further imaging, including follow-up CT, MRI, or follow-up x-rays, are advised as needed. Electronically signed by Josef Echavarria 09-04-2024 01:33 AM
[2024-09-04 01:52] LABS: Appearance Urine Clear (Clear); Glucose Urine UA Negative (Negative)
[2024-09-04 01:55] LABS: Alanine Aminotransferase 25.0 U/L (7-52); Albumin Globulin Ratio 1.5 (0.9-2); Alkaline Phosphatase 120.0 U/L (34-104); Anion Gap 9.0 (3-11); Bilirubin,Total 0.9 mg/dl (0.2-1.0); Blood Urea Nitrogen 22.0 mg/dl (6-23); Calcium 9.7 mg/dl (8.6-10.3); Carbon Dioxide 27.0 mmol/L (21-32); Chloride 103.0 mmol/L (98-107); Creatinine Clr Calc Pharmacy 51.1 ml/min; Globulin 3.0 gm/dl (2.5-4.0); Glucose 175.0 mg/dl (70-99(Fasting)); Potassium 4.6 mmol/L (3.5-5.1); Sodium 139.0 mmol/L (136-145); Total Protein 7.4 gm/dl (6.0-8.3)
--- NOTE | 2024-09-04 02:00 | CT Scan Report ---
EXAM: CT cervical spine wo con CLINICAL HISTORY: fall TECHNIQUE: Computed tomography of the cervical spine performed without intravenous contrast. Contiguous axial images were obtained from the skull base to T2, with sagittal and coronal reformatted images reconstructed from the axial data. CT scan was performed according to ALARA (as low as reasonable achievable). COMPARISON: 08/28/2022 09:39:52 GI ASST FINDINGS: The normal cervical lordotic curvature is straightened. Cervical vertebral bodies are normal in height and alignment, with no evidence of fracture or subluxation. Lateral masses of C1 are symmetrical, and the dens is intact. Ossification of tectorial membrane. Prevertebral soft tissues are not widened. The remaining suprahyoid and infrahyoid soft tissues in the neck are unremarkable. C2-C3: No disc bulge, mass effect on the cord or neuroforaminal narrowing. C3-C4: No disc bulge, mass effect on the cord or neuroforaminal narrowing. Mild anterolisthesis of C3 over C4. C4-C5: No disc bulge, mass effect on the cord or neuroforaminal narrowing. C5-C6: No disc bulge, mass effect on the cord or neuroforaminal narrowing. C6-C7: Irregular reduction of intervertebral disc space with intradiscal vaccum phenomena and marginal osteophytes. C7-T1: No disc bulge, mass effect on the cord or neuroforaminal narrowing. Thyroid gland appears unremarkable. Multilevel uncovertebral joint arthrosis. IMPRESSION: 1. No acute fracture or subluxation in the cervical spine. 2. Cervical spondylosis. 3. Straightening of cervical lordosis likely due to muscle spasm. Similar findings on previous study. Electronically signed by Byron Vega 09-04-2024 01:59 AM
--- NOTE | 2024-09-04 02:04 | CT Scan Report ---
EXAM: CT chest diagnostic wo con CLINICAL HISTORY: fall TECHNIQUE: Contiguous axial images were obtained from the neck base through the upper abdomen without contrast. In addition, sagittal and coronal reconstructions were performed to potentially increase the sensitivity for the detection of disease. CT scan was performed according to ALARA (as low as reasonable achievable). COMPARISON: FINDINGS: There are minimal bilateral pleural effusions with passive atelectasis of adjacent lower lobe parenchyma. Rest of the lungs are clear, with no focal areas of consolidation. No pulmonary nodules are seen. The central airways are patent. No pneumothorax is seen. Evaluation of the mediastinum and phil is limited due to the lack of intravenous contrast. No axillary or mediastinal adenopathy is identified. The thyroid is unremarkable. The heart, aorta, and pulmonary arteries are of normal size and configuration. There are coronary artery and aortic atherosclerotic calcifications. No pericardial effusion is identified. Imaged portions of the upper abdomen are unremarkable. No aggressive appearing osseous lesions are identified. Spondylodegenerative changes in visualised spine Interval new post spinal fixation of T12 to Lumbar spine IMPRESSION: There are minimal bilateral pleural effusions with passive atelectasis of adjacent lower lobe parenchyma. new finding Spondylodegenerative changes in visualised spine Interval new post spinal fixation of T12 to Lumbar spine Electronically signed by Byron Vega 09-04-2024 02:03 AM
[2024-09-04 02:13] LABS: INR 1.0 (0.9-1.1); Prothrombin Time 11.2 Seconds (9.0-12.0)
--- NOTE | 2024-09-04 02:14 | CT Scan Report ---
EXAM: CT hip RT wo con CLINICAL HISTORY: fall, pain TECHNIQUE: Contiguous axial CT images of right hip were obtained without intravenous contrast. Coronal and sagittal reconstructions were likewise performed and indicated to increase the sensitivity for detecting clinically relevant pathology. CT scan was performed according to ALARA (as low as reasonable achievable). COMPARISON: None. FINDINGS: Comminuted displaced fracture is noted involving intertrochanteric region of right femur. Fixation screw involving bilateral iliac bone and sacrum are seen in situ without obvious loosening. No destructive osseous lesion. The visualized muscles and tendons appear grossly unremarkable. No cortical destruction to suggest osteomyelitis. No abscess formation. No significant joint effusion. There are no soft tissue masses. Normal subcutaneous adipose space. IMPRESSION: 1. Comminuted displaced fracture is noted involving intertrochanteric region of right femur. Electronically signed by Byron Vega 09-04-2024 02:13 AM
--- NOTE | 2024-09-04 02:19 | XRay Report ---
EXAM: XR chest 1V portable CLINICAL HISTORY: Fall TECHNIQUE: An X-ray image of the chest is obtained in AP projection. COMPARISON: X-ray dated 12/13/2023 FINDINGS: Pulmonary Parenchyma: The patient is rotated No evidence of consolidation, collapse. No pulmonary nodules are identified. No evidence of pleural effusion. Heart and Mediastinum: Heart size is enlarged; however, this is an AP projection/inadequate inspiration. Bony Thorax: Bony thorax appears intact without fractures or deformities. Degenerative changes in the visualized spine with mild scoliotic tilt Soft Tissues: Soft tissues overlying the chest wall are unremarkable. IMPRESSION: No acute pulmonary pathology could be detected. Electronically signed by Josef Echavarria 09-04-2024 02:18 AM
--- NOTE | 2024-09-04 02:20 | CT Scan Report ---
EXAM: CT abd pelvis wo con CLINICAL HISTORY: fall, R hip pain TECHNIQUE: Contiguous axial images were obtained from the level of the diaphragm to the pubic symphysis without intravenous or oral contrast. Coronal and sagittal reconstructions were likewise performed and indicated to increase the sensitivity for detecting clinically relevant pathology. CT scan was performed according to ALARA (as low as reasonable achievable). COMPARISON: 15:22:09 [facility] FINDINGS: Mild right pleural effusion with basal subsegmental collapse of right lower lobes are seen. Minimal pleural thickening on left side. Sliding hiatus hernia noted. Evaluation of the abdominal and pelvic visceral organs is limited without intravenous contrast. The unenhanced liver, spleen, pancreas, and adrenal glands are grossly unremarkable. The gallbladder is distended and shows multiple tiny calculi without cholecystitis.. The kidneys are normal in size and attenuation without obvious calcification. There is no hydronephrosis or perinephric stranding. The ureters are normal in caliber. The urinary bladder is normal in contour. Pelvic viscera are grossly unremarkable. No adenopathy or fluid collections are seen. No evidence of focal or diffuse bowel wall thickening or evidence of bowel obstruction is seen. The appendix is visualized in the right lower quadrant and appears within normal limits. The aorta is normal in caliber. No aggressive appearing osseous lesions are identified. Diffuse atherosclerotic calcification is noted involving aorta iliac arteries.-stable. Uncomplicated descending and sigmoid colonic diverticulosis. Degenerative changes involving visualized spine. Multiple fixations screws in the spine without loosening/complication-stable. Fat containing umbilical hernia. Comminuted displaced fracture is noted involving intertrochanteric region of right femur. IMPRESSION: 1. Uncomplicated cholelithiasis.-stable. 2. Uncomplicated colonic diverticulosis.-stable. 3. Fat containing umbilical hernia.-stable. 4. Mild right pleural effusion with basal subsegmental collapse of right lower lobes are seen. ( resolution of pleural effusion on left side nad reduction on right side ). 5. Comminuted displaced fracture is noted involving intertrochanteric region of right femur.-new finding. Electronically signed by Byron Vega 09-04-2024 02:20 AM
--- NOTE | 2024-09-04 02:26 | CT Scan Report ---
EXAM: CT head/brain wo con CLINICAL HISTORY: fall, eliquis, dementia TECHNIQUE: An axial non-contrast CT scan of the brain was performed from the skull base to the high parietal region. One of the following dose reduction techniques was utilized for this exam: Automated exposure control, adjustment of the mA and/or kV according to patient size, and use of iterative reconstruction. (CTDI: 36.31 mGy, DLP: 3015.77 mGy*cm) COMPARISON: 08/28/2022, CT head/brain FINDINGS: Brain Parenchyma: Moderate diffuse hypodensity is identified in bilateral periventricular deep white matter. Few small low-attenuation areas are identified in the bilateral basal ganglia and periventricular region. Normal attenuation of the cerebellum and brainstem. No evidence of acute infarct, hemorrhage, or mass effect. No abnormal areas of hyperattenuation. Ventricular System: Mild dilatation of the ventricular system is seen No evidence of hydrocephalus. Subarachnoid Spaces: Mild to moderate widening of sulci is identified. No evidence of subarachnoid hemorrhage or extra-axial fluid collections. Cerebellum and Brainstem: No masses, lesions, or areas of abnormal density. Orbits: Normal appearance of the globes, optic nerves, and extraocular muscles. No evidence of orbital masses or abnormal density. Sinuses: Mild mucosal thickening is seen in the right ethmoid sinus The rest of the paranasal sinuses appear unremarkable. A minimal S-shaped deviation of the nasal septum is identified Mastoid Air Cells: Clear mastoid air cells. No evidence of mastoiditis. Skull: Normal skull morphology. Hyperostosis frontalis interna is seen IMPRESSION: 1. No traumatic brain or bone injury. 2. No evidence of intracranial hemorrhage, gross territorial infarction, or mass effect. 3. Redemonstration of age-appropriate volume loss in brain parenchyma and bilateral periventricular deep white matter ischemic changes with no significant interval change. 4. Redemonstration of a few low-attenuation areas in bilateral basal ganglia and periventricular region, likely chronic lacunar infarcts/microvascular ischemic changes, with no gross interval change seen. 5. Interval development of right ethmoid sinusitis. Electronically signed by Josef Echavarria 09-04-2024 02:26 AM
--- NOTE | 2024-09-04 02:33 | CT Scan Report ---
EXAM: CT lumbar spine wo con CLINICAL HISTORY: fall, eliquis TECHNIQUE: Multiple contiguous axial images were obtained through the lumbar spine without IV contrast. Sagittal and coronal reformatted images were obtained from the axial data. CT scan was performed according to ALARA (as low as reasonable achievable). COMPARISON: None. FINDINGS: Loss of lumbar lordosis - suggest possibility of muscle spasm/positional. Degenerative changes involving lumbar spine in the form of multilevel marginal osteophytes, disc space reduction and facetal arthrosis. Post laminectomy status is noted through L2-L5 level. Interlocking fixation is done with orthopedic metallic hardware are seen in situ without obvious loosening. Fusion of multiple vertebra including facetal joints- ankylosing changes. Lumbar vertebral bodies are maintained in height and alignment. No vertebral estructive changes are seen. Posterior disc osteophyte complex is noted through L1-L2 to L5-S1 level. Paravertebral soft tissues are unremarkable. IMPRESSION: 1. Lumbar spondylosis changes. 2. Orthopedic metallic hardware are seen in situ without obvious loosening. 3. No obvious acute trauma related abnormality seen. Electronically signed by Byron Vega 09-04-2024 02:33 AM
[2024-09-04 02:54] LABS: Hematocrit (blood only) 40.5 % (37.0-47.0); Hemoglobin 13.5 g/dl (12.0-16.0); Mean Corpuscular Hemoglobin 31.8 pg (25.0-34.0); Mean Corpuscular Volume 95.3 fL (80.0-100.0); Platelet Count 305 K/uL (130-400); RDW Standard Deviation 46.4 fL (36.4-46.3); Red Blood Count 4.25 M/uL (4.20-5.40); White Blood Count 13.50 K/ul (4.8-10.8)
[2024-09-04 02:58] LABS: Immature Granulocytes # (auto) 0.10 K/uL (0.01-0.20); Immature Granulocytes % (auto) 0.7 %
[2024-09-04] MEDS: ACETAMINOPHEN 1,000 MG/100 ML VIAL IV STA (03:37)
--- NOTE | 2024-09-04 04:05 | History & Physical Report ---
Date of Service September 04, 2024 Assessment & Plan (1) Closed fracture of right hip: Plan: -patient had witnessed mechanical fall at [facility], hx of frequent falls -per patient minimal pain at this time -ED discussed with ortho, no procedure today due to eliquis use, perhaps tomorrow -given fall was witnessed, no LOC, no prodrome or warning signs, leg just gave out, likely mechanical in nature -ECG without evidence of clear ischemia or evidence of arrythmia Plan: -ortho consult, appreciate recs (order placed) -hold eliquis in prep of procedure -clear liquid diet at this time in prep for formal consult -PT/OT post procedure (not ordered) -pain control with tylenol, lidocaine patch and breakthrough low dose oxycodone (to reduce delirium risk) -incentive spirometer -gentle maintenance fluids to help minimize delirium and elevated BUN/creatinine ratio (2) Dementia: Plan: -has frequent episodes of behavioral disturbances, frequent falls -per collateral patient frequently becomes delirius in hospital and with anesthesia Plan: -continue home lexapro, melatonin, memantine, remeron, risperidone -delirium precautions, limit anticholinergics/opioids if possible (3) Leukocytosis: Plan: -extensive imaging UA unrevealing for any source of infection -likely reactive to fracture (4) History of subarachnoid hemorrhage: Plan: -noted (5) Transient atrial fibrillation: Plan: -monitor (6) Hyperlipidemia: Plan: -continue atorvastatin (7) Spinal stenosis: Plan: -noted Plan I spent a total of 70 minutes in direct patient care, including [id number] time with the patient and/or family, reviewing medical records, ordering and reviewing diagnostic tests, and coordinating care with other healthcare providers. This time includes: history taking, physical examination, medical decision making, counseling, ECG interpretation, imaging interpretation, lab interpretation, orders, and education, excluding time spent in the performance of separately billed services. History of Present Illness Chief Complaint: -fall Primary Care Provider: [facility] [place] 84 yo female with pmhx of paroxysmal atrial fibrillation, hx of DVT, severe dementia c/b behavioral disturbances, hx of SAH, HLD, HTN, IBS, GERD, lumbar stenosis, depression, and anxiety who presents from [facility] after a fall this evening. Last admission was in 2022 for E. coli bacteremia. In the ED, adams scan revealed right femur fracture, ortho discussed with ED hold eliquis with potential procedure tomorrow, leukocytosis noted, admitted to medicine for further workup. Patient seen and examined at bedside. Patient orriented to self only. States she does not remember falling. Denies any hip pain at this time. Does not know location, time, or other details about current situation. Fall around 4pm on 09/03/2024, witnessed fall, was mechanical in nature. No LOC, only mild discomfort in right hip after fall. Has frequent falls at [facility] per collateral. Allergies Allergy/AdvReac Type Severity Reaction Status Date / Time cephalexin Allergy Intermediate HIVES Verified 09/04/24 00:32 lorazepam [From Ativan] Allergy Unknown Unknown Unverified 09/04/24 00:32 zolpidem [From Ambien] AdvReac Severe "Gets Unverified 09/04/24 00:32 Violent" Home Medications Medication Instructions Recorded Confirmed Type amlodipine 5 mg tablet 5 mg PO DAILY 10/28/17 09/04/24 History atorvastatin 20 mg tablet 20 mg PO HS 10/28/17 09/04/24 History metoprolol succinate 100 mg 100 mg PO QAM 10/28/17 09/04/24 History tablet,extended release 24 hr escitalopram oxalate 10 mg tablet 10 mg PO DAILY 06/16/22 09/04/24 History acetaminophen 325 mg tablet 650 mg PO Q4 PRN Mild Pain. 11/16/22 09/04/24 Hist ory (Tylenol) docusate sodium 100 mg tablet 100 mg PO BID constipation 11/16/22 09/04/24 History solifenacin 5 mg tablet 5 mg PO DAILY 11/16/22 09/04/24 History apixaban 5 mg tablet (Eliquis) 5 mg PO BID 09/04/24 09/04/24 History ferrous sulfate 325 mg (65 mg 325 mg PO DAILY 09/04/24 09/04/24 History iron) tablet memantine 5 mg tablet 5 mg PO BID 09/04/24 09/04/24 History menthol 0.44 %-zinc oxide 20.6 % 1 applic topical Q8 PRN REDNESS TO 09/04/24 09/04/24 History topical ointment (Calmoseptine) BUTTOCKS metformin 500 mg tablet 500 mg PO BID 09/04/24 09/04/24 History mirtazapine 7.5 mg tablet 7.5 mg PO HS 09/04/24 09/04/24 History ramelteon 8 mg tablet 8 mg PO HS 09/04/24 09/04/24 History risperidone 0.5 mg tablet 0.5 mg PO HS 09/04/24 09/04/24 History Past Med/Surg History Problem List Leukocytosis Closed fracture of right hip (Acute) Dementia (Acute) Fall (Acute) Acute pyelonephritis E coli bacteremia Dyslipidemia, goal LDL below 100 History of subarachnoid hemorrhage Transient atrial fibrillation Atrial fibrillation with RVR Hyperlipidemia Metabolic encephalopathy Abnormal finding on urinalysis Sepsis (Acute) Elevated procalcitonin (Acute) Non-ST elevation [place] (NSTEMI) (Acute) Lumbar stenosis with neurogenic claudication (Acute 02/13/14) Hypertension (Chronic) Arthritis (Chronic) GERD (gastroesophageal reflux disease) (Chronic) Medical History Osteoarthritis Spinal stenosis Poor historian Asthma as a child Hypertension Surgical History Hx of cataract surgery RIGHT History of hysterectomy History of tonsillectomy History of bilateral breast reduction surgery History of back surgery hardware present Family History Other Dementia Social History Smoking Status: Never smoker Second Hand Exposure: Yes; Do You Dip or Chew Tobacco: No; Hx Alcohol Use: No Hx Substance Use: No Preferred Language: Chinese Communication Ability: Impaired Physical Security Engineer Required: No Beliefs That Will Affect Care: None Current Living Situation: Long-Term Current Living Situation Comment: Wendy Feels Safe at Home: Yes Assistive Devices: None Review of Systems Review of Systems: -patient unable to endorse due to john ia Physical Exam Physical Exam: Gen: A&O 1 NAD HEENT: NCAT, EOMI, not icteric. External ears normal. No rhinorrhea. Moist mucous membranes. Neck: Supple, full range of motion, no observable masses, No meningeal sign. Lungs: No Respiratory distress. CV: RRR, no edema. Abdomen: Soft, nondistended, No rebound tenderness. MSK: No joint swelling, no redness. Skin: No rashes, petechiae, lesions. Normal color per patient. Neuro: Normal Gait, Grossly intact. Psych: pleasantly confused Results & Data Results & Data Vital Signs (Past 12 Hours) Vital Signs Temp Pulse Pulse Resp BP BP Pulse Ox 09/04/24 03:00 36.8 C 88 18 148/77 H 95 09/04/24 02:00 36.9 C 88 16 136/78 98 09/04/24 01:06 36.6 C 90 16 148/78 H 98 09/04/24 00:23 91 H 09/04/24 00:06 36.7 C 90 19 152/68 H 96 09/04/24 00:01 36.8 C 91 H 22 168/87 H 95 O2 Del Method 09/04/24 03:00 Room Air 09/04/24 02:00 Room Air 09/04/24 01:06 Room Air 09/04/24 00:23 09/04/24 00:06 Room Air 09/04/24 00:01 Room Air Laboratory Results -personally reviewed, elevated leukocytosis potentially reactive to hip fracture, creatinine at baseline, unremarkable UA Code Status & VTE Plan Code Status -full code, unable to reach daughter via telephone (1) Closed fracture of right hip Encounter type: initial encounter Qualified Code(s): S72.001A - Fracture of unspecified part of neck of right femur, initial encounter for closed fracture (2) Dementia Dementia type: unspecified type
[2024-09-04] MEDS: LACTATED RINGER'S 1,000 ML IV SCH (04:37)
[2024-09-04 05:13] LABS: Chlamydia pneumoniae PCR Not Detected (NotDetected); Coronavirus 229E PCR Not Detected (NotDetected); Coronavirus CoV-2 (COVID19)PCR Not Detected (NotDetected); Coronavirus HKU1 PCR Not Detected (NotDetected); Coronavirus NL63 PCR Not Detected (NotDetected); Coronavirus OC43PCR Not Detected (NotDetected); Human Metapneumovirus PCR Not Detected (NotDetected); Parainfluenza Virus 1 PCR Not Detected (NotDetected); Parainfluenza Virus 2 PCR Not Detected (NotDetected); Parainfluenza Virus 3 PCR Not Detected (NotDetected); Parainfluenza Virus 4 PCR Not Detected (NotDetected); Respiratory Syncytial VirusPCR Not Detected (NotDetected); Rhinovirus/Enterovirus PCR Not Detected (NotDetected)
[2024-09-04] MEDS ORDERED: POLYETHYLENE (MIRALAX) 17 GM PACK PO PRN (05:29)
[2024-09-04] MEDS ORDERED: ACETAMINOPHEN 500 MG TAB PO PRN (05:29)
[2024-09-04] MEDS ORDERED: ONDANSETRON INJ 2 MG/ML 2 ML VIAL IV PRN ×2 (05:29→14:48)
[2024-09-04 05:53] LABS: Hematocrit (blood only) 38.0 % (37.0-47.0); Hemoglobin 12.5 g/dl (12.0-16.0); Mean Corpuscular Hemoglobin 31.3 pg (25.0-34.0); Mean Corpuscular Volume 95.0 fL (80.0-100.0); Platelet Count 315 K/uL (130-400); RDW Standard Deviation 45.1 fL (36.4-46.3); Red Blood Count 4.00 M/uL (4.20-5.40); White Blood Count 12.30 K/ul (4.8-10.8)
[2024-09-04] MEDS: METOPROLOL SUCC 50MG EXT REL TAB PO SCH (07:22)
[2024-09-04] MEDS: MEMANTINE HCL 5 MG TAB PO SCH (07:22)
[2024-09-04] MEDS: LIDOCAINE 5% 1 PATCH TD SCH (07:22)
[2024-09-04] MEDS: ESCITALOPRAM OXALATE 10 MG TAB PO SCH (07:22)
[2024-09-04] MEDS: OXYBUTYNIN CHLORIDE XL 5 MG TABCR PO SCH (07:22)
--- NOTE | 2024-09-04 10:39 | Orthopedic Consultation ---
Date of Service September 04, 2024 Assessment & Plan (1) Closed fracture of right hip: * Case/imaging reviewed and discussed with Dr Ruiz * Recommend or fixation of right intertrochanteric femur fracture * Tentative OR today, 09/04, pending medical clearance * Continue Eliquis hold, however we will operate as soon as medically cleared * Bedrest/nonweightbearing RLE preop * Disposition: TBD * Daily treatment: Physical Therapy/ Occupational Therapy per protocol * Pain control * Remainder care per primary team * Will continue to follow History of Present Illness Reason for Consultation: Right hip pain Requesting Physician: . Attending Physician: Quiana Linares MD .Patient is a 84y/o female with right hip pain. PMH including dementia, A-fib with RVR, HLD, metabolic encephalopathy, HTN, GERD. Presents to hospital from assisted living facility with right leg pain after a fall. Current workup including x-ray and CT right hip demonstrating intertrochanteric femur fracture. Admitted to hospital medicine team. Orthopedics consulted for management recommendations. At time of exam patient lying comfortably in bed, no acute distress. Pleasantly confused, unable to provide further information regarding her fall or injury. Endorses pain of the right hip. Otherwise history unobtainable. Allergies Allergy/AdvReac Type Severity Reaction Status Date / Time cephalexin Allergy Intermediate HIVES Verified 09/04/24 00:32 lorazepam [From Ativan] Allergy Unknown Unknown Unverified 09/04/24 00:32 zolpidem [From Ambien] AdvReac Severe "Gets Unverified 09/04/24 00:32 Violent" Home Medications Medication Instructions Recorded Confirmed Type amlodipine 5 mg tablet 5 mg PO DAILY 10/28/17 09/04/24 History atorvastatin 20 mg tablet 20 mg PO HS 10/28/17 09/04/24 History metoprolol succinate 100 mg 100 mg PO QAM 10/28/17 09/04/24 History tablet,extended release 24 hr escitalopram oxalate 10 mg tablet 10 mg PO DAILY 06/16/22 09/04/24 History acetaminophen 325 mg tablet 650 mg PO Q4 PRN Mild Pain. 11/16/22 09/04/24 History (Tylenol) docusate sodium 100 mg tablet 100 mg PO BID constipation 11/16/22 09/04/24 History solifenacin 5 mg tablet 5 mg PO DAILY 11/16/22 09/04/24 History apixaban 5 mg tablet (Eliquis) 5 mg PO BID 09/04/24 09/04/24 History ferrous sulfate 325 mg (65 mg 325 mg PO DAILY 09/04/24 09/04/24 History iron) tablet memantine 5 mg tablet 5 mg PO BID 09/04/24 09/04/24 History menthol 0.44 %-zinc oxide 20.6 % 1 applic topical Q8 PRN REDNESS TO 09/04/24 09/04/24 History topical ointment (Calmoseptine) BUTTOCKS metformin 500 mg tablet 500 mg PO BID 09/04/24 09/04/24 History mirtazapine 7.5 mg tablet 7.5 mg PO HS 09/04/24 09/04/24 History ramelteon 8 mg tablet 8 mg PO HS 09/04/24 09/04/24 History risperidone 0.5 mg tablet 0.5 mg PO HS 09/04/24 09/04/24 History Past Med/Surg History Problem List Leukocytosis Closed fracture of right hip (Acute) Dementia (Acute) Fall (Acute) Acute pyelonephritis E coli bacteremia Dyslipidemia, goal LDL below 100 History of subarachnoid hemorrhage Transient atrial fibrillation Atrial fibrillation with RVR Hyperlipidemia Metabolic encephalopathy Abnormal finding on urinalysis Sepsis (Acute) Elevated procalcitonin (Acute) Non-ST elevation IN (NSTEMI) (Acute) Lumbar stenosis with neurogenic claudication (Acute 02/13/14) Hypertension (Chronic) Arthritis (Chronic) GERD (gastroesophageal reflux disease) (Chronic) Medical History Osteoarthritis Spinal stenosis Poor historian Asthma as a child Hypertension Surgical History Hx of cataract surgery RIGHT History of hysterectomy History of tonsillectomy History of bilateral breast reduction surgery History of back surgery hardware present Family History Other Dementia Social History Smoking Status: Never smoker Second Hand Exposure: Yes; Do You Dip or Chew Tobacco: No; Hx Alcohol Use: No Hx Substance Use: No Preferred Language: [place] Communication Ability: Impaired Interface Designer Required: No Beliefs That Will Affect Care: None Current Living Situation: Retirement Current Living Situation Comment: [facility] Other Information That Helps Us Care for You: No Feels Safe at Home: Yes Safety Concerns: Feels Safe At This Time Assistive Devices: Walker and Wheelchair Review of Systems All systems reviewed & are unremarkable except as noted in HPI & below. Physical Exam . * General: Alert and oriented, no acute distress * Constitutional: well-developed, well-nourished. * Respiratory: Normal respiratory effort, no distress * Gastrointestinal: No tenderness to palpation, no rigidity or guarding. * Skin: No rash or lesion. * Neurologic: Grossly normal * Musculoskeletal: Right lower extremity shortened and actually rotated. Otherwise no obvious deformity or overlying skin changes to the right lower extremity. Apparent tenderness of the proximal thigh and anterior hip region. Otherwise no specific tenderness of the distal thigh, knee, lower leg, foot/ankle. Pain with logroll, otherwise ROM hip not assessed. Spontaneous movements of the right foot but does not follow directions. Brisk capillary refill. Results & Data Results & Data Laboratory Results . 09/04/24 09/04/24 09/04/24 04:48 03:38 01:40 WBC 12.30 H RBC 4.00 L Hgb 12.5 Hct 38.0 MCV 95.0 MCH 31.3 MCHC 32.9 RDW Std Deviation 45.1 RDW Coeff of David 13.2 Plt Count 315 MPV 10.8 Immature Gran % (Auto) Neut % (Auto) Lymph % (Auto) [place] % (Auto) Eos % (Auto) Baso % (Auto) Neut # (Auto) Lymph # (Auto) [place] # (Auto) Eos # (Auto) Baso # (Auto) Immature Gran # (Auto) RBC Agglutinates PT INR Sodium Potassium Chloride Carbon Dioxide Anion Gap BUN Creatinine Est Cr Clr Drug Dosing eGFR BUN/Creatinine Ratio Glucose Calcium Magnesium 1.7 Total Bilirubin AST ALT Alkaline Phosphatase Total Protein Albumin Globulin Albumin/Globulin Ratio Urine Color Yellow Urine Appearance Clear Urine pH 6.5 Ur Specific [place] 1.020 Urine Protein Negative Urine Glucose (UA) Negative Urine Ketones 1+ H Urine Blood Negative Urine Nitrite Negative Urine Bilirubin Negative Urine Urobilinogen Positive H Ur Leukocyte Esterase Negative Urine Comment Adenovirus (PCR) Not Detected B. pertussis DNA (PCR) Not Detected B.parapertussis DNA PCR Not Detected C. pneumoniae DNA (PCR) Not Detected Coronavirus OC43 (PCR) Not Detected Coronavirus HKU1 (PCR) Not Detected Coronavirus 229E (PCR) Not Detected SARS-CoV-2 (PCR) Not Detected Coronavirus NL63 (PCR) Not Detected Human Metapneumovir PCR Not Detected Influenza Type A (PCR) Not Detected Influenza Type B (PCR) Not Detected M. pneumoniae (PCR) Not Detected Parainfluenza 1 (PCR) Not Detected Parainfluenza 2 (PCR) Not Detected Parainfluenza 3 (PCR) Not Detected Parainfluenza 4 (PCR) Not Detected RSV (PCR) Not Detected Entero/Rhino (PCR) Not Detected 09/04/24 00:42 WBC 13.50 H RBC 4.25 Hgb 13.5 Hct 40.5 MCV 95.3 MCH 31.8 MCHC 33.3 RDW Std Deviation 46.4 H RDW Coeff of David 13.7 Plt Count 305 MPV 11.1 Immature Gran % (Auto) 0.7 Neut % (Auto) 83.4 Lymph % (Auto) 8.5 [place] % (Auto) 7.4 Eos % (Auto) 0.0 Baso % (Auto) 0.0 Neut # (Auto) 11.25 H Lymph # (Auto) 1.15 L [place] # (Auto) 1.00 H Eos # (Auto) 0.00 Baso # (Auto) 0.00 Immature Gran # (Auto) 0.10 RBC Agglutinates 3+ PT 11.2 INR 1.0 Sodium 139 Potassium 4.6 Chloride 103 Carbon Dioxide 27 Anion Gap 9 BUN 22 Creatinine 0.75 Est Cr Clr Drug Dosing 51.1 eGFR 77.97 BUN/Creatinine Ratio 29.3 H Glucose 175 H Calcium 9.7 Magnesium Total Bilirubin 0.9 AST 28 ALT 25 Alkaline Phosphatase 120 H Total Protein 7.4 Albumin 4.4 Globulin 3.0 Albumin/Globulin Ratio 1.5 Urine Color Urine Appearance Urine pH Ur Specific [place] Urine Protein Urine Glucose (UA) Urine Ketones Urine Blood Urine Nitrite Urine Bilirubin Urine Urobilinogen Ur Leukocyte Esterase Urine Comment Adenovirus (PCR) B. pertussis DNA (PCR) B.parapertussis DNA PCR C. pneumoniae DNA (PCR) Coronavirus OC43 (PCR) Coronavirus HKU1 (PCR) Coronavirus 229E (PCR) SARS-CoV-2 (PCR) Coronavirus NL63 (PCR) Human Metapneumovir PCR Influenza Type A (PCR) Influenza Type B (PCR) M. pneumoniae (PCR) Parainfluenza 1 (PCR) Parainfluenza 2 (PCR) Parainfluenza 3 (PCR) Parainfluenza 4 (PCR) RSV (PCR) Entero/Rhino (PCR) Diagnostic Findings . Abdomen/Pelvis CT 09/04/24 00:18 EXAM: CT abd pelvis wo con CLINICAL HISTORY: fall, R hip pain TECHNIQUE: Contiguous axial images were obtained from the level of the diaphragm to the pubic symphysis without intravenous or oral contrast. Coronal and sagittal reconstructions were likewise performed and indicated to increase the sensitivity for detecting clinically relevant pathology. CT scan was performed according to ALARA (as low as reasonable achievable). COMPARISON: 15:22:09 CERNER ANALYST FINDINGS: Mild right pleural effusion with basal subsegmental collapse of right lower lobes are seen. Minimal pleural thickening on left side. Sliding hiatus hernia noted. Evaluation of the abdominal and pelvic visceral organs is limited without intravenous contrast. The unenhanced liver, spleen, pancreas, and adrenal glands are grossly unremarkable. The gallbladder is distended and shows multiple tiny calculi without cholecystitis.. The kidneys are normal in size and attenuation without obvious calcification. There is no hydronephrosis or perinephric stranding. The ureters are normal in caliber. The urinary bladder is normal in contour. Pelvic viscera are grossly unremarkable. No adenopathy or fluid collections are seen. No evidence of focal or diffuse bowel wall thickening or evidence of bowel obstruction is seen. The appendix is visualized in the right lower quadrant and appears within normal limits. The aorta is normal in caliber. No aggressive appearing osseous lesions are identified. Diffuse atherosclerotic calcification is noted involving aorta iliac arteries.-stable. Uncomplicated descending and sigmoid colonic diverticulosis. Degenerative changes involving visualized spine. Multiple fixations screws in the spine without loosening/complication-stable. Fat containing umbilical hernia. Comminuted displaced fracture is noted involving intertrochanteric region of right femur. IMPRESSION: 1. Uncomplicated cholelithiasis.-stable. 2. Uncomplicated colonic diverticulosis.-stable. 3. Fat containing umbilical hernia.-stable. 4. Mild right pleural effusion with basal subsegmental collapse of right lower lobes are seen. ( resolution of pleural effusion on left side nad reduction on right side ). 5. Comminuted displaced fracture is noted involving intertrochanteric region of right femur.-new finding. Electronically signed by Byron Vega 09-04-2024 02:[address] 09/04/24 00:18 EXAM: CT cervical spine wo con CLINICAL HISTORY: fall TECHNIQUE: Computed tomography of the cervical spine performed without intravenous contrast. Contiguous axial images were obtained from the skull base to T2, with sagittal and coronal reformatted images reconstructed from the axial data. CT scan was performed according to ALARA (as low as reasonable achievable). COMPARISON: 08/28/2022 09:39:52 CERNER ANALYST FINDINGS: The normal cervical lordotic curvature is straightened. Cervical vertebral bodies are normal in height and alignment, with no evidence of fracture or subluxation. Lateral masses of C1 are symmetrical, and the dens is intact. Ossification of tectorial membrane. Prevertebral soft tissues are not widened. The remaining suprahyoid and infrahyoid soft tissues in the neck are unremarkable. C2-C3: No disc bulge, mass effect on the cord or neuroforaminal narrowing. C3-C4: No disc bulge, mass effect on the cord or neuroforaminal narrowing. Mild anterolisthesis of C3 over C4. C4-C5: No disc bulge, mass effect on the cord or neuroforaminal narrowing. C5-C6: No disc bulge, mass effect on the cord or neuroforaminal narrowing. C6-C7: Irregular reduction of intervertebral disc space with intradiscal vaccum phenomena and marginal osteophytes. C7-T1: No disc bulge, mass effect on the cord or neuroforaminal narrowing. Thyroid gland appears unremarkable. Multilevel uncovertebral joint arthrosis. IMPRESSION: 1. No acute fracture or subluxation in the cervical spine. 2. Cervical spondylosis. 3. Straightening of cervical lordosis likely due to muscle spasm. Similar findings on previous study. Electronically signed by Byron Vega 09-04-2024 01:[address] 09/04/24 00:18 EXAM: CT chest diagnostic wo con CLINICAL HISTORY: fall TECHNIQUE: Contiguous axial images were obtained from the neck base through the upper abdomen without contrast. In addition, sagittal and coronal reconstructions were performed to potentially increase the sensitivity for the detection of disease. CT scan was performed according to ALARA (as low as reasonable achievable). COMPARISON: FINDINGS: There are minimal bilateral pleural effusions with passive atelectasis of adjacent lower lobe parenchyma. Rest of the lungs are clear, with no focal areas of consolidation. No pulmonary nodules are seen. The central airways are patent. No pneumothorax is seen. Evaluation of the mediastinum and phil is limited due to the lack of intravenous contrast. No axillary or mediastinal adenopathy is identified. The thyroid is unremarkable. The heart, aorta, and pulmonary arteries are of normal size and configuration. There are coronary artery and aortic atherosclerotic calcifications. No pericardial effusion is identified. Imaged portions of the upper abdomen are unremarkable. No aggressive appearing osseous lesions are identified. Spondylodegenerative changes in visualised spine Interval new post spinal fixation of T12 to Lumbar spine IMPRESSION: There are minimal bilateral pleural effusions with passive atelectasis of adjacent lower lobe parenchyma. new finding Spondylodegenerative changes in visualised spine Interval new post spinal fixation of T12 to Lumbar spine Electronically signed by Byron Vega 09-04-2024 02:03 AM Chest X-Ray 09/04/24 00:18 EXAM: XR chest 1V portable CLINICAL HISTORY: Fall TECHNIQUE: An X-ray image of the chest is obtained in AP projection. COMPARISON: X-ray dated 12/13/2023 FINDINGS: Pulmonary Parenchyma: The patient is rotated No evidence of consolidation, collapse. No pulmonary nodules are identified. No evidence of pleural effusion. Heart and Mediastinum: Heart size is enlarged; however, this is an AP projection/inadequate inspiration. Bony Thorax: Bony thorax appears intact without fractures or deformities. Degenerative changes in the visualized spine with mild scoliotic tilt Soft Tissues: Soft tissues overlying the chest wall are unremarkable. IMPRESSION: No acute pulmonary pathology could be detected. Electronically signed by Josef Echavarria 09-04-2024 02:[address] 09/04/24 00:18 EXAM: CT head/brain wo con CLINICAL HISTORY: fall, eliquis, dementia TECHNIQUE: An axial non-contrast CT scan of the brain was performed from the skull base to the high parietal region. One of the following dose reduction techniques was utilized for this exam: Automated exposure control, adjustment of the mA and/or kV according to patient size, and use of iterative reconstruction. (CTDI: 36.31 mGy, DLP: 3015.77 mGy*cm) COMPARISON: 08/28/2022, CT head/brain FINDINGS: Brain Parenchyma: Moderate diffuse hypodensity is identified in bilateral periventricular deep white matter. Few small low-attenuation areas are identified in the bilateral basal ganglia and periventricular region. Normal attenuation of the cerebellum and brainstem. No evidence of acute infarct, hemorrhage, or mass effect. No abnormal areas of hyperattenuation. Ventricular System: Mild dilatation of the ventricular system is seen No evidence of hydrocephalus. Subarachnoid Spaces: Mild to moderate widening of sulci is identified. No evidence of subarachnoid hemorrhage or extra-axial fluid collections. Cerebellum and Brainstem: No masses, lesions, or areas of abnormal density. Orbits: Normal appearance of the globes, optic nerves, and extraocular muscles. No evidence of orbital masses or abnormal density. Sinuses: Mild mucosal thickening is seen in the right ethmoid sinus The rest of the paranasal sinuses appear unremarkable. A minimal S-shaped deviation of the nasal septum is identified Mastoid Air Cells: Clear mastoid air cells. No evidence of mastoiditis. Skull: Normal skull morphology. Hyperostosis frontalis interna is seen IMPRESSION: 1. No traumatic brain or bone injury. 2. No evidence of intracranial hemorrhage, gross territorial infarction, or mass effect. 3. Redemonstration of age-appropriate volume loss in brain parenchyma and bilateral periventricular deep white matter ischemic changes with no significant interval change. 4. Redemonstration of a few low-attenuation areas in bilateral basal ganglia and periventricular region, likely chronic lacunar infarcts/microvascular ischemic changes, with no gross interval change seen. 5. Interval development of right ethmoid sinusitis. Electronically signed by Josef Echavarria 09-04-2024 02:26 AM Hip/Pelvis X-Ray 09/04/24 00:18 EXAM: XR hip RT 2V w pelvis CLINICAL HISTORY: Fall TECHNIQUE: X-ray images of the right hip joints in AP and lateral view with pelvis were obtained in anteroposterior (AP) projection. COMPARISON: CT dated 11/18/2022, 01/25/2024 CTA. FINDINGS: Hip Joints: A lucent area is seen in the greater trochanter of the right femur, concerning for a nondisplaced fracture, with a bony fragment along the superior aspect(new). A small bony fragment is seen along the lateral aspect of the right greater trochanter, representing calcific tendinosis(unchanged). Degenerative changes in both hip joints with osteophyte formation. Reduced bone density. Acetabular structures appear normal and intact. Femoral heads are normal and centered within the acetabulum. Pelvic Bones: Pelvic bones, including the iliac wings, ischium, pubis, and sacrum, are normal and intact. No evidence of dislocations, or significant osseous lesions. Osteophytes along the left superior iliac spine, unchanged. Symphysis Pubis: Symphysis pubis is normal and intact. No evidence of separation or widening. Soft Tissues: Visualized soft tissues are normal and unremarkable. No soft tissue swelling or masses. Pelvic phleboliths are seen. Additional: Small linear metallic densities are seen projected over the spine. A metallic lumbosacral spinal fixator is seen with screws. IMPRESSION: 1. A lucent area is seen in the greater trochanter of the right femur, concerning for a nondisplaced fracture, with a bony fragment along the superior aspect (New). Further evaluation with CT should be considered if clinically indicated. 2. A small bony fragment is seen along the lateral aspect of the right greater trochanter, representing calcific tendinosis (Unchanged). 3. Degenerative changes in the hip joints (Increased). DISCLAIMER:A subtle bone abnormality or fracture may not be readily apparent on x-rays; thus, clinical correlation and further imaging, including follow-up CT, MRI, or follow-up x-rays, are advised as needed. Electronically signed by Josef Echavarria 09-04-2024 01:[address] 09/04/24 00:18 EXAM: CT lumbar spine wo con CLINICAL HISTORY: fall, eliquis TECHNIQUE: Multiple contiguous axial images were obtained through the lumbar spine without IV contrast. Sagittal and coronal reformatted images were obtained from the axial data. CT scan was performed according to ALARA (as low as reasonable achievable). COMPARISON: None. FINDINGS: Loss of lumbar lordosis - suggest possibility of muscle spasm/positional. Degenerative changes involving lumbar spine in the form of multilevel marginal osteophytes, disc space reduction and facetal arthrosis. Post laminectomy status is noted through L2-L5 level. Interlocking fixation is done with orthopedic metallic hardware are seen in situ without obvious loosening. Fusion of multiple vertebra including facetal joints- ankylosing changes. Lumbar vertebral bodies are maintained in height and alignment. No vertebral estructive changes are seen. Posterior disc osteophyte complex is noted through L1-L2 to L5-S1 level. Paravertebral soft tissues are unremarkable. IMPRESSION: 1. Lumbar spondylosis changes. 2. Orthopedic metallic hardware are seen in situ without obvious loosening. 3. No obvious acute trauma related abnormality seen. Electronically signed by Byron Vega 09-04-2024 02:[address] 09/04/24 00:41 EXAM: CT hip RT wo con CLINICAL HISTORY: fall, pain TECHNIQUE: Contiguous axial CT images of right hip were obtained without intravenous contrast. Coronal and sagittal reconstructions were likewise performed and indicated to increase the sensitivity for detecting clinically relevant pathology. CT scan was performed according to ALARA (as low as reasonable achievable). COMPARISON: None. FINDINGS: Comminuted displaced fracture is noted involving intertrochanteric region of right femur. Fixation screw involving bilateral iliac bone and sacrum are seen in situ without obvious loosening. No destructive osseous lesion. The visualized muscles and tendons appear grossly unremarkable. No cortical destruction to suggest osteomyelitis. No abscess formation. No significant joint effusion. There are no soft tissue masses. Normal subcutaneous adipose space. IMPRESSION: 1. Comminuted displaced fracture is noted involving intertrochanteric region of right femur. Electronically signed by Byron Vega 09-04-2024 02:13 AM PG Care Time/CCT Total # of Minutes Spent Total Time Spent with Patient: Total time spent is greater than 50% in coordination of care (as documented) at patient's floor/unit and/or counseling patient: [place] [address] IN/OBS CONSULT LVL 5,80M Patient Type New Medical Decision Making High Complexity Diagnoses Closed fracture of right hip S72.001A Encounter type: initial encounter (1) Closed fracture of right hip Encounter type: initial encounter Qualified Code(s): S72.001A - Fracture of unspecified part of neck of right femur, initial encounter for closed fracture
[2024-09-04] MEDS ORDERED: KETAMINE HCL 10MG/ML SYR ONE (14:16)
[2024-09-04] MEDS ORDERED: MIDAZOLAM HCL 1 MG/ML 2ML VIAL ONE (14:16)
[2024-09-04] MEDS ORDERED: LIDOCAINE 2% 2 ML VIAL/AMP(20MG/ML) INFIL ONE (14:44)
[2024-09-04] MEDS ORDERED: ONDANSETRON INJ 2 MG/ML 2 ML VIAL ONE (14:44)
[2024-09-04] MEDS ORDERED: DEXAMETHASONE SOD INJ 4 MG/ML VIAL ONE (14:44)
[2024-09-04] MEDS ORDERED: PROPOFOL IV EMULSION 10 MG/ML 20 ML VIAL IV ONE (14:44)
[2024-09-04] MEDS ORDERED: ROCURONIUM BROMIDE 10 MG/ML 5 ML VIAL IV ONE (14:44)
[2024-09-04] MEDS ORDERED: GLYCOPYRROLATE 0.2 MG/ML VIAL ONE (14:44)
[2024-09-04] MEDS ORDERED: SUGAMMADEX SODIUM 200 MG/2 ML VIAL IV ONE (14:45)
[2024-09-04] MEDS ORDERED: PROMETHAZINE HCL 6.25 MG in SODIUM CHLORIDE 0.9% 50 ML IV PRN (14:48)
[2024-09-04] MEDS ORDERED: ATROPINE SULFATE 0.1 MG/ML 10ML SYR IV PRN (14:48)
--- NOTE | 2024-09-04 14:48 | Anesthesiology Consultation ---
Date of Service September 04, 2024 Assessment & Plan Chart Review Chart Review: Acceptable Risk for Surgery and Patient NOT seen in Pre Admission Testing Consults Requested none ASA ASA3 Proposed Anesthesia Anesthesia Type: General Risk / Benefits Reviewed With: PT / POA / Parent / Guardian, Accepts Plan and Informed Consent Obtained History Surgery Operation Date: 09/04/24 08:30 Proposed Procedures p Right Troch Nail - Mamadou Ruiz MD Height/Weight Height: 5 ft 2 in Weight: 70.1 kg Allergies Allergy/AdvReac Type Severity Reaction Status Date / Time cephalexin Allergy Intermediate HIVES Verified 09/04/24 00:32 lorazepam [From Ativan] Allergy Unknown Unknown Unverified 09/04/24 00:32 zolpidem [From Ambien] AdvReac Severe "Gets Unverified 09/04/24 00:32 Violent" Medications Home Medications Medication Instructions Recorded Confirmed Last Taken amlodipine 5 mg tablet 5 mg PO DAILY 10/28/17 09/04/24 05/02/21 atorvastatin 20 mg tablet 20 mg PO HS 10/28/17 09/04/24 05/02/21 metoprolol succinate 100 mg 100 mg PO QAM 10/28/17 09/04/24 05/02/21 tablet,extended release 24 hr escitalopram oxalate 10 mg tablet 10 mg PO DAILY 06/16/22 09/04/24 Unknown acetaminophen 325 mg tablet 650 mg PO Q4 PRN Mild Pain. 11/16/22 09/04/24 Unknown (Tylenol) docusate sodium 100 mg tablet 100 mg PO BID constipation 11/16/22 09/04/24 Unknown solifenacin 5 mg tablet 5 mg PO DAILY 11/16/22 09/04/24 Unknown apixaban 5 mg tablet (Eliquis) 5 mg PO BID 09/04/24 09/04/24 Unknown ferrous sulfate 325 mg (65 mg 325 mg PO DAILY 09/04/24 09/04/24 Unknown iron) tablet memantine 5 mg tablet 5 mg PO BID 09/04/24 09/04/24 Unknown menthol 0.44 %-zinc oxide 20.6 % 1 applic topical Q8 PRN REDNESS TO 09/04/24 09/04/24 Unknown topical ointment (Calmoseptine) BUTTOCKS metformin 500 mg tablet 500 mg PO BID 09/04/24 09/04/24 Unknown mirtazapine 7.5 mg tablet 7.5 mg PO HS 09/04/24 09/04/24 Unknown ramelteon 8 mg tablet 8 mg PO HS 09/04/24 09/04/24 Unknown risperidone 0.5 mg tablet 0.5 mg PO HS 09/04/24 09/04/24 Unknown Active Medications Generic Name Dose Route Start Last Admin Trade Name Ramesh PRN Reason Stop Dose Admin Amlodipine Besylate 5 mg 09/04/24 09:00 09/04/24 07:22 Amlodipine Besylate 5 Mg Tab PO 10/04/24 08:59 Not Given DAILY MEG Escitalopram Oxalate 10 mg 09/04/24 09:00 09/04/24 07:22 Escitalopram Oxalate 10 Mg Tab PO 10/04/24 08:59 Not Given DAILY MEG Lactated Ringer's 1,000 mls @ 80 mls/hr 09/04/24 04:30 09/04/24 04:37 Lr IV 09/04/24 15:00 80 mls/hr .[id number] MEG Administration Lidocaine 1 patch 09/04/24 09:00 09/04/24 07:22 Lidocaine 5% 1 Patch TD 10/04/24 08:59 Not Given QAM MEG Memantine 5 mg 09/04/24 09:00 09/04/24 07:22 Memantine Hcl 5 Mg Tab PO 10/04/24 08:59 Not Given BID MEG Metoprolol Succinate 100 mg 09/04/24 09:00 09/04/24 07:22 Metoprolol Succ 50mg Ext Rel Tab PO 10/04/24 08:59 Not Given QAM MEG Miscellaneous 1 each 09/04/24 08:00 09/04/24 07:21 Ramelteon: Order Awaiting Action N/A 10/04/24 07:59 Not Given QS MEG Oxybutynin Chloride 5 mg 09/04/24 09:00 09/04/24 07:22 Oxybutynin Chloride Xl 5 Mg Tabcr PO 10/04/24 08:59 Not Given DAILY EMG NPO Date Last Intake of Fluids: 09/03/24 Time Last Intake of Fluids: 18:00 Date Last Intake of Solids: 09/03/24 Time Last Intake of Solids: 18:00 Past Medical History Medical History Osteoarthritis Spinal stenosis Poor historian Asthma as a child Hypertension Exercise / Class Metabolic Activity II 4-5 Yardwork/Stairs/Walk up hill Past Family History Family History Other Dementia Past Surgical History Surgical History Hx of cataract surgery RIGHT History of hysterectomy History of tonsillectomy History of bilateral breast reduction surgery History of back surgery hardware present Past Anesthesia History No Hx of Anesthesia Complications and No Family Hx of Anesthesia Complications History of PONV No Hx of PONV and No Hx of Motion Sickness Social History Smoking Status: Never smoker Do You Dip or Chew Tobacco: No Hx Alcohol Use: No Hx Substance Use: No substance use type: does not use Physical Exam Vital Signs Last Vital Signs Temp 36.5 C 09/04/24 14:10 Pulse 72 09/04/24 14:10 Resp 20 09/04/24 14:10 BP 162/77 H 09/04/24 14:10 Pulse Ox 95 09/04/24 14:10 O2 Del Method Room Air 09/04/24 14:10 ENMT Mouth: no dentition abnormality Thyromental Distance: > or= 3.5 Finger Breadths Mallampati Class: II Neck normal visual inspection Respiratory normal respiratory effort Auscultation: lungs clear to auscultation bilaterally Cardiovascular Rate/Rhythm: regular rate and regular rhythm Psychiatric Patient is sleepy but arousable. Does not answer questions appropriately. History obtained from chart review and daughter. Testing Laboratory Results 09/04/24 04:48 09/04/24 00:42 PT 11.2 Seconds (9.0-12.0) 09/04/24 00:42 INR 1.0 (0.9-1.1) 09/04/24 00:42 Urine Color Yellow 09/04/24 01:40 Urine Appearance Clear (Clear) 09/04/24 01:40 Urine pH 6.5 (4.5-7.5) 09/04/24 01:40 Ur Specific [place] 1.020 (1.000-1.030) 09/04/24 01:40 Urine Protein Negative (Negative) 09/04/24 01:40 Urine Glucose (UA) Negative (Negative) 09/04/24 01:40 Urine Ketones 1+ (Negative) H 09/04/24 01:40 Urine Nitrite Negative (Negative) 09/04/24 01:40 Ur Leukocyte Esterase Negative (Negative) 09/04/24 01:40
--- NOTE | 2024-09-04 15:30 | History & Physical Bridge Note ---
Date of Service September 04, 2024 History & Physical Bridge Note I have examined the patient, reviewed the History & Physical and in the interval since the performance of the History & Physical I have noted the following changes of clinical significance: no changes noted
[2024-09-04] MEDS: TRANEXAMIC ACID / 0.7% NACL 1,000 MG/100 ML BAG IV ONE ×2 (15:40→17:00)
[2024-09-04] MEDS: BUPIVACAINE/EPINEPHRINE 0.5% MPF 1:200,000 30 ML VIAL ONE (17:01)
--- NOTE | 2024-09-04 17:21 | Operative Report ---
PG Post Operative Report Pre & Post Diagnosis Operation Date: 09/04/24 08:30 Pre-Op Diagnosis: Closed intertrochanteric fracture of right hip Post-Op Diagnosis: Closed intertrochanteric fracture of right hip I identified the patient and participated in the time-out.: Yes Procedure Operation Date: 09/04/24 08:30 Actual Procedures p Right Hip Intramedullary Nail Insertion(Right) - Mamadou Ruiz MD Surgeon Mamadou Ruiz MD Therapeutic Specialist Vasile Peace PA-C Estimated Blood Loss 100 Findings Consistent with Post-Op Diagnosis Specimens None Anesthesia Type General Complications none Disposition Accompanied Patient To Recovery: No Indications Patient is an 84-year-old female with a history of multiple recent falls. She had an apparent fall on the day of admission. Acute onset of pain and discomfort in her hip. X-rays revealed a displaced intertrochanteric hip fracture. The patient was admitted to hospital, medically optimized, and indicated for surgical repair. Description of Procedure Operative implants consists of: 1 Synthes right. 20 mm x 10 mm long trochanteric nail. 2. 90 mm helical blade. 3. 40 mm x 5 mm distal interlocking screw. The patient was taken to the op room, identified, placed on the operating table in the supine position. All conductors were appropriately padded. IV antibiotics were by anesthesia team. A general anesthetic was implemented. The patient was then placed on the fracture table. The right leg was placed in boot traction of the left leg was placed in a well-leg jones. I then applied some longitudinal traction to the right thigh and leg and internally rotated foot so the kneecap pointed to the ceiling. X-ray was brought in. The fracture was nearly anatomically reduced. Just a slight bit of a sag. The right hip and leg were then scrubbed with Hibiclens, prepped with ChloraPrep and draped in usual sterile fashion. A curvilinear incision was made in the proximal aspect of the right hip and buttock area just proximal to the greater trochanter. Sharp dissection was Through subcutaneous tissue down to level of the gluteal fascia. There was a fairly thick soft tissue subcutaneous envelope. The gluteal fascia was sized longitudinally. The guidewire was placed just lateral to the tip of the trochanter and in line with the IM canal in the AP and lateral planes. Unfortunately, this went great through the fracture site. The placement was identified and this was overreamed with the large reamer. The guidewire was exchanged for a ball-tipped guidewire advanced down the thigh. We measured and a 340 mm nail was selected. I then overreamed the guidewire beginning with a 10 mm reamer which already got chatter. We reamed up to . We then placed a right 320 mm x 10 mm long trochanteric nail. We tapped this into position. We had adjusted several times. I did the best I could to ream out any bone to prevent any distraction. The nail did go right through the fracture site. The lateral aiming arm was attached. A stab incision was made in advance of the lateral aspect of femur. We placed the guidewire in the central aspect of the femoral head neck the best possible. She did have somewhat of a varus neck. We then measured and a 90 mm helical blade was selected. The cortical drill followed by the triple reamer was then used and a 90 mm helical blade was placed. I then compressed the fracture site the best possible. The proximal setscrew was tightened. Attention toward distal interlocking. Using a perfect chitina technique a distal interlocking screw was placed. A stab incision was made. Using perfect chitina technique a distal interlocking screw was placed. Some final x-rays were obtained. Attention then drawn to closing. The wounds were irrigated coconuts of normal saline. Injected locally with 30 cc of half percent Marcaine with epinephrine. The gluteal fascia were then closed with an 01 Vicryl suture in the running fashion. The subcutaneous tissues of the proximal wound were then closed in 2 layers with a deep layer #1 Vicryl suture and subcutaneous tissues with 2-0 Dexon suture in buried erupted fashion. The small stab incisions were closed with 2-0 Vicryl suture in a subcuticular fashion. [place] were then do used to suture the skin at all incision sites. The leg was then cleaned and dried and a sterile dressing with Xeroform, 4 x 4's, ABD pad and foam tape was applied. The patient was then taken off the fracture table. She was brought out of general anesthesia and transferred to the recovery room in stable condition. The patient tolerated the procedure well and there were no complications. Vasile Peace, my physician clerical assistant, was present for the entire procedure. His assistance was required for proper patient positioning, prepping draping, surgical exposure, retraction, perform the technical details of the operation, placement of the hardware, closure of the incision sites, and placement of postoperative sterile bandage. I attest to the content of the Intraoperative Record and any orders documented therein. Any exceptions are noted below.
--- NOTE | 2024-09-04 17:37 | Communication Note ---
Date of Service: September 04, 2024 evaluated at bedside oriented to self, awake and alert reported pain in right hip, then noted delirium reporting "pappy is in the room!" Exam revealed woman laying supine, no acute distress, right lower extremity with pulse intact and shortened, but on apparent hematoma/ecchymosis noted #Right hip fracture s/p intertrochanteric nail s/p nail 09/[address] Ruiz schedule tylenol analgeia prn PT/OT as able continue to hold eliquis #Delirium #Dementia anticipate delirium s/p procedure continue delirium precautions and adequate pain control rest of plan in HP
[2024-09-04] MEDS: TRANEXAMIC ACID / 0.7% NACL 1000MG/100ML BAG IV ONE (19:33)
[2024-09-04] MEDS: ACETAMINOPHEN 500 MG TAB PO SCH (19:35)
[2024-09-04] MEDS: REMOVE LIDODERM PATCH SCH (20:15)
[2024-09-04] MEDS: ATORVASTATIN 20 MG TAB PO SCH (20:15)
[2024-09-04] MEDS: MIRTAZAPINE TAB 15 MG TAB PO SCH (20:15)
[2024-09-05 07:28] LABS: Potassium 4.1 mmol/L (3.5-5.1)
[2024-09-05 07:30] LABS: Anion Gap 4.0 (3-11); Blood Urea Nitrogen 14.0 mg/dl (6-23); Calcium 8.4 mg/dl (8.6-10.3); Carbon Dioxide 28.0 mmol/L (21-32); Chloride 106.0 mmol/L (98-107); Creatinine Clr Calc Pharmacy 57.2 ml/min; Glucose 155.0 mg/dl (70-99(Fasting)); Sodium 138.0 mmol/L (136-145)
[2024-09-05 07:32] LABS: Hematocrit (blood only) 29.9 % (37.0-47.0); Hemoglobin 10.6 g/dl (12.0-16.0); Mean Corpuscular Hemoglobin 34.2 pg (25.0-34.0); Mean Corpuscular Volume 96.5 fL (80.0-100.0); Platelet Count 233 K/uL (130-400); RDW Standard Deviation 47.5 fL (36.4-46.3); Red Blood Count 3.10 M/uL (4.20-5.40); White Blood Count 7.77 K/ul (4.8-10.8)
[2024-09-05 07:33] LABS: Immature Granulocytes # (auto) 0.03 K/uL (0.01-0.20); Immature Granulocytes % (auto) 0.4 %
[2024-09-05 07:36] LABS: INR 1.0 (0.9-1.1); Prothrombin Time 11.2 Seconds (9.0-12.0)
--- NOTE | 2024-09-05 08:19 | Fluoroscopy Report ---
FL hip RT 2-3V CLINICAL HISTORY: ADD ON RIGHT TROCHNAIL COMPARISON STUDY: None FLUOROSCOPY TIME: 132 seconds FLUOROSCOPY IMAGES: 5 EXPOSURE DOSE: 38 mGy FINDINGS: Fluoroscopy was provided for right femoral gamma nail. IMPRESSION: Intraoperative fluoroscopy. ACT 112: Negative or not required by law. Electronically signed by: Hakeem Cardenas M.D. 09/05/2024 8:16 AM
[2024-09-05 09:45] LABS: Prealbumin 18.2 mg/dl (20-40)
--- NOTE | 2024-09-05 09:45 | Orthopedic Progress Note ---
Date of Service September 05, 2024 Assessment & Plan (1) Closed fracture of right hip: * Continue Current Treatment * S/p fixation of intertrochanteric femur fracture * Disposition: TBD * Daily treatment: Physical Therapy/ Occupational Therapy per protocol * Weight bearing status: WBAT * Continue to monitor for ABLA * Pain control * DVT prophylaxis, okay to resume home dose Eliquis from Ortho standpoint * Office/hospital f/u 2 weeks for progress check and staple/suture removal * Remainder care per primary team * Stable for discharge from ortho standpoint, further planning per primary team Subjective .Active Problems: S/p right TFN POD 1 84y/o female s/p right TFN. Severely demented. Patient sound asleep at time of exam, spontaneous movements upon waking however does not meaningfully participate in exam. Appears more comfortable than preoperatively yesterday. Review of Systems All systems reviewed & are unremarkable except as noted in HPI & below. Physical Exam . * General: No acute distress * Constitutional: well-developed, well-nourished. * Respiratory: Normal respiratory effort, no distress * Gastrointestinal: No tenderness to palpation, no rigidity or guarding. * Skin: No rash or lesion. * Neurologic: Grossly normal * Musculoskeletal: Right hip surgical dressing CDI, not removed for exam. Otherwise no obvious deformity or overlying skin changes. Diffuse TTP proximal thigh and hip region. Otherwise no specific tenderness of distal thigh, lower leg, foot/ankle. AROM hip flexion intact. AROM foot/ankle intact. Brisk capillary refill. Results & Data Results & Data Laboratory Results . Diagnostic Findings . PG Care Time/CCT Total # of Minutes Spent Total Time Spent with Patient: Total time spent is greater than 50% in coordination of care (as documented) at patient's floor/unit and/or counseling patient: Coding Level of Care Code 45162 Post Operative Follow-Up Diagnoses Closed fracture of right hip S72.001A Encounter type: initial encounter (1) Closed fracture of right hip Encounter type: initial encounter Qualified Code(s): S72.001A - Fracture of unspecified part of neck of right femur, initial encounter for closed fracture
--- NOTE | 2024-09-05 15:15 | Hospitalist Progress Note ---
Date of Service September 05, 2024 Assessment & Plan (1) Closed fracture of right hip: Plan: -[facility], hx of frequent falls -per patient minimal pain at this time Status post right hip intramedullary nail insertion on 09/04 Plan to initiate PT OT; challenging given patient's history of dementia. Continue DVT prophylaxis with Eliquis; plan to continue for 6 weeks Pain control with Tylenol scheduled. (2) Dementia: Plan: -has frequent episodes of behavioral disturbances, frequent falls -per collateral patient frequently becomes delirius in hospital and with anesthesia Plan: -continue home lexapro, melatonin, memantine, remeron, risperidone -delirium precautions, limit anticholinergics/opioids if possible (3) Leukocytosis: Plan: -resolved (4) History of subarachnoid hemorrhage: (5) Transient atrial fibrillation: Plan: -monitor (6) Hyperlipidemia: Plan: -continue atorvastatin (7) Spinal stenosis: Plan Discussed CODE STATUS with the patient's daughter at bedside; CODE STATUS changed to DNR/DNI after the discussion. DVT prophylaxis Eliquis Time spent evaluating patient, direct bedside care, chart review, placing orders, interpretation of diagnostic studies, discussion with consultants, patient, and family members, as well as other required patient management activities is 50 minutes Please note the above document was generated using voice recognition software. It may contain grammatical, syntax or spelling errors. Any formal questions or concerns about the content, text or information contained within the body of this dictation should be directly addressed to the provider for clarification Admission and Anticipated Discharge Date Admission Date: September 04, 2024 Subjective Patient seen at bedside. Her daughter is also at bedside. She is closing her eyes; gets agitated intermittently. No significant events overnight Review of Systems Review of Systems: All systems reviewed & are unremarkable except as noted in Subjective Physical Exam Physical Exam: Constitutional: Closing her eyes; not in distress.; Respiratory: Bilateral vesicular breath. Cardiovascular: RRR, no murmur, no edema Vessels: no JVD or carotid bruit Chest: normal inspection of chest Abdomen: normal bowel sounds, soft, nontender, no hepatosplenomegaly Musculoskeletal: Right hip dressing intact; clean and dry. Neurologic: Grossly moves all extremities Results & Data Results & Data Vital Signs (Past 12 Hours) Vital Signs Temp Pulse Resp BP Pulse Ox O2 Del Method 09/05/24 09:45 36.7 C 84 16 137/76 93 Room Air (1) Closed fracture of right hip Encounter type: initial encounter Qualified Code(s): S72.001A - Fracture of unspecified part of neck of right femur, initial encounter for closed fracture (2) Dementia Dementia type: unspecified type
[2024-09-05] MEDS: APIXABAN 2.5 MG TAB PO SCH (17:18)
--- NOTE | 2024-09-06 08:29 | Orthopedic Progress Note ---
Date of Service September 06, 2024 Assessment & Plan (1) Closed fracture of right hip: * Continue Current Treatment * S/p fixation of intertrochanteric femur fracture * Disposition: TBD * Daily treatment: Physical Therapy/ Occupational Therapy per protocol * Weight bearing status: WBAT * Continue to monitor for ABLA * Pain control * DVT prophylaxis, okay to resume home dose Eliquis from Ortho standpoint * Office/hospital f/u 2 weeks for progress check and staple/suture removal * Remainder care per primary team * Stable for discharge from ortho standpoint, further planning per primary team Subjective Active Problems: S/p right TFN POD 2 84y/o female s/p right TFN. Severely demented. Patient sound asleep at time of exam, spontaneous movements upon waking however does not meaningfully participate in exam. Appears more comfortable than preoperatively yesterday. Review of Systems All systems reviewed & are unremarkable except as noted in HPI & below. Physical Exam . * General: No acute distress * Constitutional: well-developed, well-nourished. * Respiratory: Normal respiratory effort, no distress * Gastrointestinal: No tenderness to palpation, no rigidity or guarding. * Skin: No rash or lesion. * Neurologic: Grossly normal * Musculoskeletal: Right hip surgical dressing CDI, not removed for exam. Otherwise no obvious deformity or overlying skin changes. Diffuse TTP proximal thigh and hip region. Otherwise no specific tenderness of distal thigh, lower leg, foot/ankle. AROM hip flexion intact. AROM foot/ankle intact. Brisk capillary refill. Results & Data Results & Data Laboratory Results . Diagnostic Findings . PG Care Time/CCT Total # of Minutes Spent Total Time Spent with Patient: Total time spent is greater than 50% in coordination of care (as documented) at patient's floor/unit and/or counseling patient: Coding Level of Care Code 62430 Post Operative Follow-Up Diagnoses Closed fracture of right hip S72.001A Encounter type: initial encounter (1) Closed fracture of right hip Encounter type: initial encounter Qualified Code(s): S72.001A - Fracture of unspecified part of neck of right femur, initial encounter for closed fracture
[2024-09-06 12:13] LABS: Hematocrit (blood only) 32.2 % (37.0-47.0); Hemoglobin 10.7 g/dl (12.0-16.0); Mean Corpuscular Hemoglobin 32.2 pg (25.0-34.0); Mean Corpuscular Volume 97.0 fL (80.0-100.0); Platelet Count 266 K/uL (130-400); RDW Standard Deviation 49.2 fL (36.4-46.3); Red Blood Count 3.32 M/uL (4.20-5.40); White Blood Count 8.60 K/ul (4.8-10.8)
[2024-09-06 13:48] LABS: Anion Gap 6.0 (3-11); Blood Urea Nitrogen 18.0 mg/dl (6-23); Calcium 8.8 mg/dl (8.6-10.3); Carbon Dioxide 28.0 mmol/L (21-32); Chloride 106.0 mmol/L (98-107); Creatinine Clr Calc Pharmacy 51.7 ml/min; Glucose 204.0 mg/dl (70-99(Fasting)); Potassium 4.0 mmol/L (3.5-5.1); Sodium 140.0 mmol/L (136-145)
--- NOTE | 2024-09-06 14:37 | Hospitalist Progress Note ---
Date of Service September 06, 2024 Assessment & Plan (1) Closed fracture of right hip: Plan: [facility] -per patient minimal pain at this time Status post right hip intramedullary nail insertion on 09/04 Continue PT OT; challenging given patient's history of dementia. Continue DVT prophylaxis with Eliquis; plan to continue for 6 weeks Pain control with Tylenol scheduled. (2) Dementia: Plan: -has frequent episodes of behavioral disturbances, frequent falls -per collateral patient frequently becomes delirius in hospital and with anes thesia Plan: -continue home lexapro, melatonin, memantine, remeron, risperidone -delirium precautions, limit anticholinergics/opioids if possible (3) Leukocytosis: Plan: -resolved (4) History of subarachnoid hemorrhage: (5) Transient atrial fibrillation: Plan: -monitor (6) Hyperlipidemia: Plan: -continue atorvastatin (7) Spinal stenosis: Plan DNR/DNI DVT prophylaxis Eliquis Please note the above document was generated using voice recognition software. It may contain grammatical, syntax or spelling errors. Any formal questions or concerns about the content, text or information contained within the body of this dictation should be directly addressed to the provider for clarification Admission and Anticipated Discharge Date Admission Date: September 04, 2024 Subjective Patient seen and examined at bedside. She is awake today and able to answer questions. She denies any pain or discomfort No significant events overnight Review of Systems Review of Systems: All systems reviewed & are unremarkable except as noted in Subjective Physical Exam Physical Exam: Constitutional:Appears comfortable; not in distress. Respiratory: Bilateral vesicular breath. Cardiovascular: RRR, no murmur, no edema Vessels: no JVD or carotid bruit Chest: normal inspection of chest Abdomen: normal bowel sounds, soft, nontender, no hepatosplenomegaly Musculoskeletal: Right hip dressing intact; clean and dry. Neurologic: Grossly moves all extremities Results & Data Results & Data Vital Signs (Past 12 Hours) Vital Signs Temp Pulse Resp BP Pulse Ox O2 Del Method 09/06/24 07:06 37.4 C 72 16 148/74 H 94 Room Air (1) Closed fracture of right hip Encounter type: initial encounter Qualified Code(s): S72.001A - Fracture of unspecified part of neck of right femur, initial encounter for closed fracture (2) Dementia Dementia type: unspecified type
[2024-09-06] MEDS: POLYETHYLENE (MIRALAX) 17 GM PACK PO SCH (17:54)
--- NOTE | 2024-09-07 07:33 | Orthopedic Progress Note ---
Date of Service September 07, 2024 Assessment & Plan (1) Closed fracture of right hip: * Continue Current Treatment * S/p fixation of intertrochanteric femur fracture * Disposition: TBD * Daily treatment: Physical Therapy/ Occupational Therapy per protocol * Weight bearing status: WBAT * Continue to monitor for ABLA * Pain control * DVT prophylaxis, okay to resume home dose Eliquis from Ortho standpoint * Office/hospital f/u 2 weeks for progress check and staple/suture removal * Remainder care per primary team * Stable for discharge from ortho standpoint, further planning per primary team Subjective Active Problems: S/p right TFN POD 3 84y/o female s/p right TFN. Severely demented. Patient sound asleep at time of exam, spontaneous movements upon waking however does not meaningfully participate in exam. Appears more comfortable than preoperatively yesterday. Review of Systems All systems reviewed & are unremarkable except as noted in HPI & below. Physical Exam * General: No acute distress * Constitutional: well-developed, well-nourished. * Respiratory: Normal respiratory effort, no distress * Gastrointestinal: No tenderness to palpation, no rigidity or guarding. * Skin: No rash or lesion. * Neurologic: Grossly normal * Musculoskeletal: Right hip surgical dressing CDI, not removed for exam. Otherwise no obvious deformity or overlying skin changes. Diffuse TTP proximal thigh and hip region. Otherwise no specific tenderness of distal thigh, lower leg, foot/ankle. AROM hip flexion intact. AROM foot/ankle intact. Brisk capillary refill. Results & Data Results & Data Laboratory Results . Diagnostic Findings . PG Care Time/CCT Total # of Minutes Spent Total Time Spent with Patient: Total time spent is greater than 50% in coordination of care (as documented) at patient's floor/unit and/or counseling patient: Coding Level of Care Code 77267 Post Operative Follow-Up Diagnoses Closed fracture of right hip S72.001A Encounter type: initial encounter (1) Closed fracture of right hip Encounter type: initial encounter Qualified Code(s): S72.001A - Fracture of unspecified part of neck of right femur, initial encounter for closed fracture
[2024-09-07 07:45] LABS: Anion Gap 6.0 (3-11); Blood Urea Nitrogen 18.0 mg/dl (6-23); Calcium 8.3 mg/dl (8.6-10.3); Carbon Dioxide 29.0 mmol/L (21-32); Chloride 107.0 mmol/L (98-107); Creatinine Clr Calc Pharmacy 47.8 ml/min; Glucose 120.0 mg/dl (70-99(Fasting)); Potassium 3.9 mmol/L (3.5-5.1); Sodium 142.0 mmol/L (136-145)
--- NOTE | 2024-09-07 13:41 | Hospitalist Progress Note ---
Date of Service September 07, 2024 Assessment & Plan (1) Closed fracture of right hip: Plan: Acute blood loss anemia patient had witnessed mechanical fall at [facility], hx of frequent falls per patient minimal pain at this time Status post right hip intramedullary nail insertion on 09/04 Hb downtrended from 13.5 to 10.6 g/dl Continue PT OT; Continue DVT prophylaxis with Eliquis; plan to continue for 6 weeks Pain control with Tylenol scheduled. (2) Dementia: Plan: -has frequent episodes of behavioral disturbances, frequent falls -per collateral patient frequently becomes delirius in hospital and with anesthesia Plan: -continue home lexapro, melatonin, memantine, remeron, risperidone -delirium precautions, limit anticholinergics/opioids if possible (3) Leukocytosis: Plan: -resolved (4) History of subarachnoid hemorrhage: (5) Transient atrial fibrillation: Plan: -monitor (6) Hyperlipidemia: Plan: -continue atorvastatin (7) Spinal stenosis: Plan DNR/DNI DVT prophylaxis Eliquis Please note the above document was generated using voice recognition software. It may contain grammatical, syntax or spelling errors. Any formal questions or concerns about the content, text or information contained within the body of this dictation should be directly addressed to the provider for clarification Admission and Anticipated Discharge Date Admission Date: September 04, 2024 Subjective Patient seen and examined at bedside. She is sleepy but awake eval by noxious stimuli. Appears comfortable Review of Systems Review of Systems: All systems reviewed & are unremarkable except as noted in Subjective Physical Exam Physical Exam: Constitutional:Sleeping; not in distress. Respiratory: Bilateral vesicular breath. Cardiovascular: RRR, no murmur, no edema Vessels: no JVD or carotid bruit Chest: normal inspection of chest Abdomen: normal bowel sounds, soft, nontender, no hepatosplenomegaly Musculoskeletal: Right hip dressing intact; clean and dry. Neurologic: Grossly moves all extremities Results & Data Results & Data Vital Signs (Past 12 Hours) Vital Signs Temp Pulse Pulse Resp BP Pulse Ox O2 Del Method 09/07/24 11:31 36.6 C 67 14 122/73 92 Room Air 09/07/24 07:47 36.4 C L 60 16 146/79 H 92 Room Air 09/07/24 07:34 Room Air 09/07/24 07:21 36.7 C 62 18 133/73 92 Room Air (1) Closed fracture of right hip Encounter type: initial encounter Qualified Code(s): S72.001A - Fracture of unspecified part of neck of right femur, initial encounter for closed fracture (2) Dementia Dementia type: unspecified type
--- NOTE | 2024-09-07 20:50 | Electrocardiogram Report ---
Test Reason : Blood Pressure : */* mmHG Vent. Rate : 91 BPM Atrial Rate : * BPM P-R Int : 208 ms QRS Dur : 72 ms QT Int : 392 ms P-R-T Axes : * 11 46 degrees QTcB Int : 483 ms Poor data quality, interpretation may be adversely affected Sinus rhythm with 1st degree A-V block Prolonged QT Abnormal ECG When compared with ECG of 19-Nov-2022 05:29, Nonspecific T wave abnormality now evident in Lateral leads Confirmed by Sameer Valdovinos ([id number]) on 09/07/2024 8:50:08 PM Referred By: Marco Riley Confirmed By: Sameer Valdovinos
--- NOTE | 2024-09-08 07:49 | Orthopedic Progress Note ---
Date of Service September 08, 2024 Assessment & Plan (1) Closed fracture of right hip: Plan: 84-year-old female with underlying dementia postop day 4 from IM nailing of an inner troches fracture. She seems much more comfortable and cooperative this morning. Does not appear to be in significant pain. She is neurologically intact. Plan: 1. DVT prophylaxis including thigh-high teds, SCDs, back on Eliquis. 2. PT/OT. Weight-bear as tolerated. No physical restrictions. 3. Pain control. Seems to be doing okay with current pain regimen. Does not appear to be in significant discomfort. 4. Disposition. She is orthopedically okay for discharge anytime medically stable. I will need to see her back 2 to 3 weeks out from surgery. She is weight-bear as tolerated. No particular orthopedic restrictions. (2) Dementia: Admission and Anticipated Discharge Date Admission Date: September 04, 2024 Subjective 84-year-old female with underlying dementia postop day 4 from a right long trochanteric nail. She is much more cooperative this morning. Denies any significant pain. Physical Exam Physical Exam: Physical examination is a pleasant elderly female. She is sitting up in bed and appears much more cooperative this morning. Examination of the right hip reveals the dressings to be clean dry and intact. Leg is well aligned. Thigh is soft and supple. She dorsiflexes and plantar flexes her foot on command. Results & Data Vital Signs (Past 12 Hours) Vital Signs Pulse Resp Pulse Ox O2 Del Method 09/08/24 02:00 64 18 94 Room Air (1) Closed fracture of right hip Encounter type: initial encounter Qualified Code(s): S72.001A - Fracture of unspecified part of neck of right femur, initial encounter for closed fracture (2) Dementia Dementia type: unspecified type
--- NOTE | 2024-09-08 14:04 | Hospitalist Progress Note ---
Date of Service September 08, 2024 Assessment & Plan (1) Closed fracture of right hip: Plan: Acute blood loss anemia patient had witnessed mechanical fall at [facility], hx of frequent falls per patient minimal pain at this time Status post right hip intramedullary nail insertion on 09/04 Hb downtrended from 13.5 to 10.6 g/dl Continue PT OT; Continue DVT prophylaxis with Eliquis; plan to continue for 6 weeks Pain control with Tylenol scheduled. Will need rehab placement in next few days (2) Dementia: Plan: -has frequent episodes of behavioral disturbances, frequent falls -per collateral patient frequently becomes delirius in hospital and with anesthesia Plan: -continue home lexapro, melatonin, memantine, remeron, risperidone -delirium precautions, limit anticholinergics/opioids if possible (3) Leukocytosis: Plan: -resolved (4) History of subarachnoid hemorrhage: (5) Transient atrial fibrillation: Plan: -monitor (6) Hyperlipidemia: Plan: -continue atorvastatin (7) Spinal stenosis: Plan DNR/DNI DVT prophylaxis Eliquis Please note the above document was generated using voice recognition software. It may contain grammatical, syntax or spelling errors. Any formal questions or concerns about the content, text or information contained within the body of this dictation should be directly addressed to the provider for clarification Admission and Anticipated Discharge Date Admission Date: September 04, 2024 Subjective Patient seen and examined at bedside. She is sleeping; appears comfortable. Overnight, she required mittens due to agitation. Review of Systems Review of Systems: All systems reviewed & are unremarkable except as noted in Subjective Physical Exam Physical Exam: Constitutional:Sleeping; not in distress. Respiratory: Bilateral vesicular breath. Cardiovascular: RRR, no murmur, no edema Vessels: no JVD or carotid bruit Chest: normal inspection of chest Abdomen: normal bowel sounds, soft, nontender, no hepatosplenomegaly Musculoskeletal: Right hip dressing intact; clean and dry. Neurologic: Grossly moves all extremities Results & Data Results & Data Vital Signs (Past 12 Hours) Vital Signs Temp Pulse Resp BP Pulse Ox O2 Del Method 09/08/24 07:59 36.9 C 61 16 135/81 95 Room Air 09/08/24 07:15 Room Air (1) Closed fracture of right hip Encounter type: initial encounter Qualified Code(s): S72.001A - Fracture of unspecified part of neck of right femur, initial encounter for closed fracture (2) Dementia Dementia type: unspecified type
--- NOTE | 2024-09-09 08:14 | Hospitalist Progress Note ---
Date of Service September 09, 2024 Assessment & Plan (1) Closed fracture of right hip: Plan: Acute blood loss anemia patient had witnessed mechanical fall at [facility], hx of frequent falls per patient minimal pain at this time Status post right hip intramedullary nail insertion on 09/04 Hb downtrended from 13.5 to 10.6 g/dl and stablized Continue PT OT; Continue DVT prophylaxis with Eliquis; plan to continue for 6 weeks Pain control with Tylenol scheduled. Will need rehab placement in next few days Aggressive bowel regimen Plan to remove Alicea (2) Dementia: Plan: -has frequent episodes of behavioral disturbances, frequent falls -per collateral patient frequently becomes delirius in hospital and with anesthesia Plan: -continue home lexapro, melatonin, memantine, remeron, risperidone -delirium precautions, limit anticholinergics/opioids if possible (3) Leukocytosis: Plan: -resolved (4) History of subarachnoid hemorrhage: (5) Transient atrial fibrillation: Plan: -monitor (6) Hyperlipidemia: Plan: -continue atorvastatin (7) Spinal stenosis: Plan DNR/DNI DVT prophylaxis Eliquis Please note the above document was generated using voice recognition software. It may contain grammatical, syntax or spelling errors. Any formal questions or concerns about the content, text or information contained within the body of this dictation should be directly addressed to the provider for clarification Admission and Anticipated Discharge Date Admission Date: September 04, 2024 Subjective Patient seen and examined at bedside. Patient oriented to self; tries to ED staff during assessment/care activity, pulling on Alicea catheter; was placed on soft mittens overnight Review of Systems Review of Systems: Unobtainable due to cognitive status Physical Exam Physical Exam: Constitutional:Sleeping; not in distress. Respiratory: Bilateral vesicular breath. Cardiovascular: RRR, no murmur, no edema Vessels: no JVD or carotid bruit Chest: normal inspection of chest Abdomen: normal bowel sounds, soft, nontender, no hepatosplenomegaly Musculoskeletal: Right hip dressing intact; clean and dry. Neurologic: Grossly moves all extremities Results & Data Results & Data Vital Signs (Past 12 Hours) Vital Signs Temp Pulse Resp BP Pulse Ox O2 Del Method 09/09/24 07:38 36.6 C 68 16 127/72 95 Room Air 09/08/24 22:40 36.8 C 79 14 162/75 H 98 Room Air (1) Closed fracture of right hip Encounter type: initial encounter Qualified Code(s): S72.001A - Fracture of unspecified part of neck of right femur, initial encounter for closed fracture (2) Dementia Dementia type: unspecified type
[2024-09-10 07:49] VITALS: RESP 12; TEMP 97.7; O2SAT 95
--- NOTE | 2024-09-10 08:52 | Hospitalist Progress Note ---
Date of Service September 10, 2024 Assessment & Plan (1) Closed fracture of right hip: Plan: Acute blood loss anemia patient had witnessed mechanical fall at [facility], hx of frequent falls per patient minimal pain at this time Status post right hip intramedullary nail insertion on 09/04 Hb downtrended from 13.5 to 10.6 g/dl and stablized Postoperatively; patient is doing well. She had periods of delirium which has gradually subsided. Pain well-controlled on scheduled Tylenol. Alicea has been removed. Patient is having regular bowel movement. PT OT recommends rehab. DVT phylaxis with Eliquis 2.5 mg twice a day for total of 6 weeks after the surgery. Patient to follow-up with orthopedic as outpatient. Patient to continue on rehabilitation at SNF (2) Dementia: Plan: -has frequent episodes of behavioral disturbances, frequent falls -per collateral patient frequently becomes delirius in hospital and with anesthesia Plan: -continue home lexapro, melatonin, memantine, remeron, risperidone -delirium precautions, limit anticholinergics/opioids if possible (3) Leukocytosis: Plan: -resolved (4) History of subarachnoid hemorrhage: (5) Transient atrial fibrillation: Plan: -monitor (6) Hyperlipidemia: Plan: -continue atorvastatin (7) Spinal stenosis: Plan DNR/DNI DVT prophylaxis Eliquis Please note the above document was generated using voice recognition software. It may contain grammatical, syntax or spelling errors. Any formal questions or concerns about the content, text or information contained within the body of this dictation should be directly addressed to the provider for clarification Admission and Anticipated Discharge Date Admission Date: September 04, 2024 Subjective Patient seen and examined at bedside. She appears comfortable; not in distress. She is not agitated. No significant events overnight Review of Systems Review of Systems: All systems reviewed & are unremarkable except as noted in Subjective Physical Exam Physical Exam: Constitutional:Sleeping; not in distress. Respiratory: Bilateral vesicular breath. Cardiovascular: RRR, no murmur, no edema Vessels: no JVD or carotid bruit Chest: normal inspection of chest Abdomen: normal bowel sounds, soft, nontender, no hepatosplenomegaly Musculoskeletal: Right hip dressing intact; clean and dry. Neurologic: Grossly moves all extremities Results & Data Results & Data Vital Signs (Past 12 Hours) Vital Signs Temp Pulse Resp BP BP Pulse Ox O2 Del Method 09/10/24 07:47 36.5 C 63 12 151/63 H 95 Room Air 09/09/24 22:30 36.8 C 82 18 151/72 H 96 Room Air (1) Closed fracture of right hip Encounter type: initial encounter Qualified Code(s): S72.001A - Fracture of unspecified part of neck of right femur, initial encounter for closed fracture (2) Dementia Dementia type: unspecified type
[2024-09-10 11:31] VITALS: BP 129/68; PULSE 58
--- NOTE | 2024-09-10 13:38 | Discharge Summary ---
Date of Service September 10, 2024 Admission HPI Per Admitting Provider 84 yo female with pmhx of paroxysmal atrial fibrillation, hx of DVT, severe dementia c/b behavioral disturbances, hx of SAH, HLD, HTN, IBS, GERD, lumbar stenosis, depression, and anxiety who presents from [facility] after a fall this evening. Last admission was in 2022 for E. coli bacteremia. In the ED, adams scan revealed right femur fracture, ortho discussed with ED hold lizeth with potential procedure tomorrow, leukocytosis noted, admitted to medicine for further workup. Patient seen and examined at bedside. Patient orriented to self only. States she does not remember falling. Denies any hip pain at this time. Does not know location, time, or other details about current situation. Fall around 4pm on 09/03/2024, witnessed fall, was mechanical in nature. No LOC, only mild discomfort in right hip after fall. Has frequent falls at [facility] per collateral. Admission Exam Per Admitting Provider Gen: A&O 1 NAD HEENT: NCAT, EOMI, not icteric. External ears normal. No rhinorrhea. Moist mucous membranes. Neck: Supple, full range of motion, no observable masses, No meningeal sign. Lungs: No Respiratory distress. CV: RRR, no edema. Abdomen: Soft, nondistended, No rebound tenderness. MSK: No joint swelling, no redness. Skin: No rashes, petechiae, lesions. Normal color per patient. Neuro: Normal Gait, Grossly intact. Psych: pleasantly confused Principal Diagnosis Hip fracture status post surgery Discharge Exam Constitutional:Sleeping; not in distress. Respiratory: Bilateral vesicular breath. Cardiovascular: RRR, no murmur, no edema Vessels: no JVD or carotid bruit Chest: normal inspection of chest Abdomen: normal bowel sounds, soft, nontender, no hepatosplenomegaly Musculoskeletal: Right hip dressing intact; clean and dry. Neurologic: Grossly moves all extremities Discharge Data Allergies Allergy/AdvReac Type Severity Reaction Status Date / Time cephalexin Allergy Intermediate HIVES Verified 09/04/24 00:32 lorazepam [From Ativan] Allergy Unknown Unknown Unverified 09/04/24 00:32 zolpidem [From Ambien] AdvReac Severe "Gets Unverified 09/04/24 00:32 Violent" Consultations 09/04/24 02:41 Consult Orthopedic Surgery Routine 09/04/24 03:21 ED Decision to Admit Stat Procedures Performed Operation Date: 09/04/24 08:30 Actual Procedures p Right Hip Intramedullary Nail Insertion(Right) - Mamadou Ruiz MD Ordered Studies 09/04/24 FL hip RT 2-3V Routine 09/04/24 00:18 CT abd pelvis wo con Stat CT cervical spine wo con Stat CT chest diagnostic wo con Stat CT head/brain wo con Stat CT lumbar spine wo con Stat 09/04/24 00:41 CT hip RT wo con Stat Hospital Course (1) Closed fracture of right hip: (2) Dementia: (3) Leukocytosis: (4) History of subarachnoid hemorrhage: (5) Transient atrial fibrillation: (6) Hyperlipidemia: (7) Spinal stenosis: Plan Hip fracture status post surgery on 09/04 Acute blood loss anemia Patient had witnessed mechanical fall at [facility] of frequent falls Status post right hip intramedullary nail insertion on 09/04 Hb downtrended from 13.5 to 10.6 g/dl and stablized Postoperative period was uneventful. She had periods of delirium which has gradually subsided. Pain well-controlled on scheduled Tylenol. Alicea has been removed. Patient is having regular bowel movement. Home dose of eliquis resumed at discharge. Patient to follow-up with orthopedic as outpatient. Patient to continue on rehabilitation at SNF PT OT recommends rehab; discharged to center care. Please note the above document was generated using voice recognition software. It may contain grammatical, syntax or spelling errors. Any formal questions or concerns about the content, text or information contained within the body of this dictation should be directly addressed to the provider for clarification Total Time Total Time Spent Total Time Spent (In Minutes): 45 Total Time Includes: Examination of the Patient, Discharge Planning, Medication Reconciliation, Communication With Other Providers and Other Discharge Plan Discharge Items Patient Disposition: Transfer Assisted Fac Reason For Visit: HIP FRACTURE Discharge Diagnosis: Right hip fracture s/p surgery Condition on Discharge: Fair Activity: Per Instructions section Weightbearing: Full weightbearing Non-emergency contact: Primary Care Provider Call non-emergency contact if: you have any medication questions and your symptoms worsen Follow-up/Referrals: Mamadou Ruiz MD [Physician] - (Orthopedic follow-up 2-3 weeks from surgery date) [facility] [Primary Care Provider] - Diet: Regular Addtl Attending Provider Instructions: Right hip surgery * May weightbear as tolerated * Routine wound care. Daily dry dressing changes to hip incisions. * May remove dressing for daily hygiene * Please contact Dr Ruiz office for follow-up appointment in 2 weeks Pending Studies at Discharge: No Stand-Alone Forms: My [facility] Skilled Items Patient informed of condition?: Yes DNR: Yes Discharge Level of Care: Skilled Communicable Disease: No Discharge Prognosis: Stable Lines: None Urinary Catheter: No Medications and DC Order Prescriptions: Continued metformin 500 mg tablet 500 mg PO BID Qty: 60 0RF atorvastatin 20 mg Tablet 20 mg PO HS Qty: 30 0RF metoprolol succinate 100 mg Tablet Extended Release 24 Hr 100 mg PO QAM Qty: 30 0RF amlodipine 5 mg Tablet 5 mg PO DAILY Qty: 30 0RF ferrous sulfate 325 mg (65 mg iron) Tablet 325 mg PO DAILY Qty: 30 0RF docusate sodium 100 mg Tablet 100 mg PO BID Qty: 30 0RF risperidone 0.5 mg tablet 0.5 mg PO HS Qty: 30 0RF escitalopram oxalate 10 mg Tablet 10 mg PO DAILY Qty: 30 0RF memantine 5 mg tablet 5 mg PO BID Qty: 30 0RF mirtazapine 7.5 mg tablet 7.5 mg PO HS Qty: 30 0RF solifenacin 5 mg tablet 5 mg PO DAILY Qty: 30 0RF ramelteon 8 mg tablet 8 mg PO HS Qty: 30 0RF menthol-zinc oxide [Calmoseptine] 0.44-20.6 % Ointment 1 applic TOPICAL Q8 PRN (Reason: REDNESS TO BUTTOCKS) Qty: 30 0RF Eliquis 5 mg tablet 5 mg PO BID Qty: 60 0RF Changed acetaminophen [Tylenol] 325 mg Tablet 650 mg PO Q6 10 Days Qty: 0 0RF Discharge Orders: Discharge Order (Routine); Ordered 09/10/24 Ordered By: Britton Marte Admission Data Admit Date/Time: 09/04/24 03:34 Attending Provider: Britton Marte Admit Provider: Raimundo Stewart Primary Care Provider: Marco Riley [place] Other Providers: Thompson [place]; Raimundo Stewart; Home,[facility] Other Interventions: Discharge Summary Assessment (RN) Last Done: 09/10/24 12:58
== END 2024-09-10 15:49 | DRG 481 ==
LOC: ED 00:06 → 3E 03:34 → SUATTDRO 03:34 → 3E 05:03